=== PATIENT | male | born 1955 | race Caucasian/White ===

== ENCOUNTER 2017-11-02 14:07 | Emergency (ER) | payer MEDICAID ==
[~2017-11-02] VITALS: Ht 188 cm; Wt 135.0 kg
[2017-11-02 14:12] VITALS: BP 140/89; PULSE 85; RESP 18; TEMP 97.6; O2SAT 98
--- NOTE | 2017-11-02 14:36 | PD ---
HPI Chief Complaint: groin pain Time Seen by Provider: 14:20 Travel History International Travel<30 days: No Contact w/Intl Traveler<30days: No Traveled to known affect area: No History of Present Illness HPI 61-year-old male states that he went to a pain management doctor and was given a prescription for his morphine 60 mg but his insurance is not authorizing it so he is having issues feeling it. He states he came here because he wants to get pain medication. He states he's having pain in his groin like he's been having for multiple years after he was diagnosed with lymphoma. He denies any fever or other concurrent complaints. The pain is severe per patient. He states his oncologist is through [facility]. He states his last chemotherapy was 7 years ago. He states he recently had a PET scan showed improvement except for in his neck area. [facility] Past Medical History Narrative Medical Lymphoma Hx Anticoagulant Therapy: No Chemotherapy: Yes Diabetes: No Past Surgical History Surgical History: Unable to Obtain (patient elected to leave) Social History Tobacco Use: No (uto) Allergies-Medications (Allergen,Severity, Reaction): Coded Allergies: No Known Allergies (Unverified , 11/02/17) Review of Systems Except as stated in HPI: all other systems reviewed are Neg Physical Exam Narrative GENERAL: Well-nourished, well-developed patient. SKIN: Warm and dry. HEAD: Normocephalic EYES: No injection or drainage. ENT: No nasal drainage noted. NECK: Supple, trachea midline. CARDIOVASCULAR: Regular rate and rhythm RESPIRATORY: No increased effort NEUROLOGICAL: Awake and alert. Motor and sensory grossly within normal limits. Normal speech. Patient would not let me look at area with associate loan officer so physical exam was limited Data Data Last Documented VS Vital Signs Date Time Temp Pulse Resp B/P (MAP) Pulse Ox O2 Delivery O2 Flow Rate FiO2 11/02/17 14:12 97.6 85 18 140/89 (106) 98 Orders Orders Ed Discharge Order (11/02/17 14:34) MDM Medical Decision Making Medical Screen Exam Complete: Yes Emergency Medical Condition: Yes Medical Record Reviewed: Yes (past history confirmed) Differential Diagnosis Chronic abdominal pain, kidney stone, diverticulitis, UTI Narrative Course Lengthy discussion with patient with nurse at bedside. Offered lab work, urinalysis and possible CT imaging after I examined the area but he states he doesn't want any testing and he just wants a pain medication. I told him as an emergency room physician I need to look and he states in that case he just wants to leave. AMA: The risks of leaving against medical advice without further evaluation treatment were discussed with the patient. These risks include cardiac dysfunction, cardiac dysrhythmia, possible heart attack, possible stroke or . The patient indicated understanding of these risks and appeared to have the capacity to make this decision. Diagnosis Primary Impression: Chronic groin pain Qualified Codes: R10.30 - Lower abdominal pain, unspecified; G89.29 - Other chronic pain Disposition: 07 AGAINST MEDICAL ADVICE Condition: Stable Sarah Thorpe MD Nov 02, 2017 14:36
== END 2017-11-02 14:40 | disposition left against medical advice (07) ==
LOC: PHED 14:07
DX: R10.30 Lower abdominal pain, unspecified (principal); G89.29 Other chronic pain; Z85.72 Personal history of non-Hodgkin lymphomas
CPT/HCPCS: 99282

== ENCOUNTER 2017-12-29 12:57 | Inpatient (IN) | payer OTHER, MEDICAID ==
[~2017-12-29] VITALS: Ht 186.7 cm; Wt 135.0 kg
[2017-12-29] VITALS (7 sets, daily range): BP systolic 129–174; BP diastolic 71–108; PULSE 81–100; RESP 14–20; TEMP 98.2; O2SAT 97–100
[~2017-12-29 12:57] MED LIST: DEXAMETHASONE SOD PHOS 4 MG/ML VIAL IV ONE; GLYCOPYRROLATE 1 MG/5 ML SYRINGE IV PUSH ONE; LACTATED RINGER'S 1000 ML INJ 1,000 ML IV ONE; LIDOCAINE HCL 1% PF 5 ML SYRINGE OTHER ONE; NEOSTIGMINE 5 MG/5 ML SYRINGE IV PUSH ONE; ONDANSETRON HCL 4 MG/2 ML VIAL IV PUSH ONE; PHENYLEPH/NS 1000 MCG/10 ML SYR IV ONE; PROPOFOL 200 MG/20 ML AMP IV ONE; ROCURONIUM INJ 50 MG/5 ML SYRINGE IV PUSH ONE
[2017-12-29] MEDS ORDERED: SODIUM CHLOR 0.9% 1000 ML INJ 1,000 ML IV SCH (13:04)
[2017-12-29] MEDS ORDERED: PROPOFOL 1000 MG/100 ML INJ 100 ML ONE (13:11)
[2017-12-29] MEDS ORDERED: ceFAZolin 2 GM PREMIX 50 ML IV ONE (13:15)
[2017-12-29] MEDS ORDERED: HYDROmorphone HCL PF 2 MG/ML VIAL IV PUSH ONE ×2 (13:15→14:15)
[2017-12-29] MEDS ORDERED: HYDROmorphone HCL PF 1 MG/ML VIAL IV PUSH ONE (13:15)
[2017-12-29] MEDS ORDERED: GENTAMICIN INJ 80 MG in SODIUM CHLORIDE 0.9% INJ 100 ML IV ONE (13:15)
[2017-12-29] MEDS ORDERED: SODIUM CHLORIDE 0.9% FLUSH 10 ML FLUSH IVF PRN (13:15)
[2017-12-29] MEDS ORDERED: DIPHTH/TETANUS/ACEL PERTUSSIS (BOOSTER) 0.5 ML VIAL/PFS IM ONE (13:15)
[2017-12-29] MEDS ORDERED: MORP60TA61 PO (13:42)
[2017-12-29 13:53] LABS: AUTOMATED NEUTROPHIL # 5.9 TH/MM3 (1.8-7.7); BASOPHIL # 0.1 TH/MM3 (0-0.2); BASOPHIL % 0.6 % (0.0-2.0); EOSINOPHIL # 0.3 TH/MM3 (0-0.4); EOSINOPHIL % 3.5 % (0.0-4.0); HEMATOCRIT 44.2 % (39.0-51.0); HEMOGLOBIN 15.4 GM/DL (13.0-17.0); LYMPH % 26.9 % (9.0-44.0); LYMPHOCYTE # 2.5 TH/MM3 (1.0-4.8); MEAN CELL VOLUME 96.4 FL (80.0-100.0); MEAN CORPUSCULAR HEMOGLOBIN 33.6 PG (27.0-34.0); MEAN CORPUSCULAR HGB CONC 34.8 % (32.0-36.0); MONO % 7.2 % (0.0-8.0); MONOCYTE # 0.7 TH/MM3 (0-0.9); NEUT % 61.8 % (16.0-70.0); PLATELET COUNT 210 TH/MM3 (150-450); RED BLOOD COUNT 4.58 MIL/MM3 (4.50-5.90); RED CELL DISTRIBUTION WIDTH 12.9 % (11.6-17.2); WHITE BLOOD COUNT 9.5 TH/MM3 (4.0-11.0)
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
[2017-12-29 14:25] LABS: BICARBONATE 23.2 MEQ/L (21.0-32.0); CALCIUM 8.5 MG/DL (8.5-10.1); CREATININE 1.24 MG/DL (0.60-1.30)
--- NOTE | 2017-12-29 14:41 | RADRPT ---
EXAM DATE/TIME: 12/29/2017 13:39 [facility] COMPARISON: No previous studies available for comparison. INDICATIONS : Distal lower leg pain after LONG TERM. MEDICAL HISTORY : Non-hodgkins lymphoma. SURGICAL HISTORY : Port. ENCOUNTER: Initial ACUITY: 1 day PAIN SCORE: 10/10 LOCATION: Left distal lower leg. FINDINGS: The examination demonstrates a 100% displaced, foreshortened fracture involving both the distal tibia and fibula. Note is made of a second fracture in the fibula just above the lateral malleolus as well. There is extensive soft tissue injury. CONCLUSION: 1. Fractures of the distal tibia and fibula as above. Sla Richardson MD on December 29, 2017 at 14:38 Board Certified Radiologist. This report was verified electronically.
--- NOTE | 2017-12-29 14:41 | RADRPT ---
EXAM DATE/TIME: 12/29/2017 13:54 [facility] COMPARISON: No previous studies available for comparison. INDICATIONS : Evaluate for pneumonia, pneumothorax, or other communicable diseases. Pre op for left distal tib fib surgery. MEDICAL HISTORY : Non-hodgkins lymphoma. Current smoker. SURGICAL HISTORY : Port. ENCOUNTER: Initial ACUITY: 1 day PAIN SCORE: 10/10 LOCATION: Bilateral chest FINDINGS: A single view of the chest demonstrates the lungs to be symmetrically aerated without evidence of mas s, infiltrate or effusion. Right IJ Xyagbi-l-Aear with tip in the proximal SVC. The cardiomediastina l contours are unremarkable. Osseous structures are intact. CONCLUSION: 1. No acute cardiopulmonary disease. Sanford Hussein MD on December 29, 2017 at 14:38 Board Certified Radiologist. This report was verified electronically.
[2017-12-29] MEDS ORDERED: MORP1CAP82 PO (14:48)
[2017-12-29] MEDS ORDERED: FENT75DI T-DERMAL (14:48)
[2017-12-29] MEDS ORDERED: GABA800T PO (14:48)
[2017-12-29] MEDS ORDERED: FURO20TA PO (14:48)
[2017-12-29] MEDS ORDERED: TRAZ100T10 PO (14:48)
[2017-12-29] MEDS ORDERED: POTA10CA PO (14:48)
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
[2017-12-29 15:21] LABS: PROTHROMBIN TIME - PATIENT 10.6 SEC (9.8-11.6)
[2017-12-29] MEDS ORDERED: ACETAMINOPHEN 1000 MG/100 ML 100 ML IV ONE (15:21)
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
[2017-12-29] MEDS ORDERED: SODIUM CHLORIDE 0.9% FLUSH 10 ML FLUSH IV FLUSH PRN (15:45)
[2017-12-29] MEDS ORDERED: ACETAMINOPHEN 325 MG TAB PO PRN (15:45)
[2017-12-29] MEDS ORDERED: ENALAPRILAT 1.25 MG/ML VIAL IV PUSH PRN (15:45)
[2017-12-29] MEDS ORDERED: ONDANSETRON HCL 4 MG/2 ML VIAL IV PUSH PRN (15:45)
[2017-12-29] MEDS: MORPHINE SULFATE 4 MG/ML INJ IV PUSH PRN ×3 (15:55→20:32)
[2017-12-29] MEDS ORDERED: HYDROmorphone HCL PF 2 MG/ML VIAL IVS ONE (16:00)
[2017-12-29] MEDS ORDERED: DEXTROSE 50% IN WATER 50 ML VIAL(D50) IV PUSH PRN (16:00)
[2017-12-29] MEDS ORDERED: GLUCAGON 1 MG/ML VIAL OTHER PRN (16:00)
[2017-12-29] MEDS: SODIUM CHLOR 0.9% 1000 ML INJ 1,000 ML IV SCH (16:00)
[2017-12-29] MEDS: ACETAMINOPHEN/HYDROcodone 325 MG/5 MG TAB PO PRN (16:54)
[2017-12-29] MEDS: INSULIN ASPART SUPPLEMENTAL SCALE SQ SCH ×2 (17:00→21:00)
[2017-12-29] MEDS: GABAPENTIN 400 MG CAP PO SCH (18:00)
[2017-12-29] MEDS: MAGNESIUM HYDROXIDE SUSP 30 ML CUP PO SCH (21:00)
[2017-12-29] MEDS: traZODone HCL 100 MG TAB PO SCH (21:00)
[2017-12-29] MEDS: DOCUSATE SODIUM 100 MG CAP PO SCH (21:00)
[2017-12-29] MEDS: FAMOTIDINE 20 MG TAB PO SCH (21:00)
[2017-12-29] MEDS ORDERED: DOCU1CAP39 PO (21:16)
[2017-12-29] MEDS ORDERED: MAGN30S PO (21:16)
[2017-12-29] MEDS ORDERED: GENTAMICIN INJ 80 MG in SODIUM CHLORIDE 0.9% INJ 100 ML IV SCH (22:00)
[2017-12-29] MEDS ORDERED: GENTAMICIN SULFATE 80 MG/2 ML VIAL ONE (22:23)
[2017-12-29] MEDS ORDERED: ceFAZolin 2 GM PREMIX 50 ML ONE (22:23)
--- NOTE | 2017-12-30 00:02 | HHI.PR ---
cc: Charo Segovia MD Immediate Post Op Note Procedure Date: Dec 30, 2017 Pre Op Diagnosis: Open left tibia and fibula fracture Left lower extremity degloving injury Post Op Diagnosis: Same Surgeon: Charo Segovia Prom Burn Off Operator(s): None Procedure: Irrigation and debridement left tibia and fibula fractures Application of external fixator left lower extremity Application of wound VAC Complications: None Specimen(s) removed: None Estimated blood loss: 150 cc Anesthesia: General Drains: None IVF Patient to: PACU Patient Condition: Good Implant/Devices: SEE IMPLANT LOG (if applicable) Date/Time of Procedure: SEE SURGICAL CARE RECORD Charo Segovia MD Dec 30, 2017 00:02
--- NOTE | 2017-12-30 00:04 | RADRPT ---
EXAM DATE/TIME: 12/29/2017 23:38 [facility] COMPARISON: No previous studies available for comparison. INDICATIONS : Left tibia/fibula fracture. X-fix of left ankle. MEDICAL HISTORY : None. SURGICAL HISTORY : None. ENCOUNTER: Initial ACUITY: 1 day PAIN SCORE: Non-responsive. LOCATION: Left ankle. FINDINGS: 2 magnified C-arm spot views are centered over the ankle joint and are labeled left. Fractures are se en involving the distal tibial metaphysis, distal fibular diaphysis, and distal fibular metadiaphysis . Mild angulation. CONCLUSION: Limited images as detailed above. Ronny Rodriguez Jr., MD on December 30, 2017 at 0:02 Board Certified Radiologist. This report was verified electronically.
[2017-12-30] MEDS ORDERED: Post-op Orders (for Pharmacy) XX ONE (00:15)
[2017-12-30] MEDS ORDERED: SODIUM CHLORIDE 0.9% FLUSH 10 ML FLUSH IV FLUSH PRN (00:15)
[2017-12-30] MEDS ORDERED: DO NOT ADM ANY ANTICOAGULANT DRUGS PRN (00:30)
[2017-12-30] MEDS: SODIUM CHLOR 0.9% 1000 ML INJ 1,000 ML IV SCH ×3 (01:57→21:52)
[2017-12-30 03:30] VITALS: BP 123/67; PULSE 87; RESP 18; TEMP 97.1; O2SAT 97
[2017-12-30 04:02] LABS: AUTOMATED NEUTROPHIL # 9.1 TH/MM3 (1.8-7.7); BASOPHIL % 0.3 % (0.0-2.0); EOSINOPHIL % 0.1 % (0.0-4.0); HEMATOCRIT 36.2 % (39.0-51.0); HEMOGLOBIN 12.9 GM/DL (13.0-17.0); LYMPH % 7.6 % (9.0-44.0); LYMPHOCYTE # 0.8 TH/MM3 (1.0-4.8); MEAN CELL VOLUME 94.8 FL (80.0-100.0); MEAN CORPUSCULAR HEMOGLOBIN 33.8 PG (27.0-34.0); MEAN CORPUSCULAR HGB CONC 35.7 % (32.0-36.0); MEAN PLATELET VOLUME 7.7 FL (7.0-11.0); MONO % 4.1 % (0.0-8.0); MONOCYTE # 0.4 TH/MM3 (0-0.9); NEUT % 87.9 % (16.0-70.0); PLATELET COUNT 175 TH/MM3 (150-450); RED BLOOD COUNT 3.82 MIL/MM3 (4.50-5.90); WHITE BLOOD COUNT 10.4 TH/MM3 (4.0-11.0)
[2017-12-30 04:31] LABS: BICARBONATE 28.3 MEQ/L (21.0-32.0); CALCIUM 8.2 MG/DL (8.5-10.1); CREATININE 1.3 MG/DL (0.60-1.30)
[2017-12-30] MEDS: GENTAMICIN INJ 80 MG in SODIUM CHLORIDE 0.9% INJ 100 ML IV SCH ×3 (05:48→21:50)
[2017-12-30 07:26] VITALS: BP 129/68; PULSE 77; RESP 19; TEMP 98.1; O2SAT 98
[2017-12-30] MEDS: INSULIN ASPART SUPPLEMENTAL SCALE SQ SCH ×4 (08:00→21:51)
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
[2017-12-30] MEDS: FAMOTIDINE 20 MG TAB PO SCH ×2 (08:12→21:50)
[2017-12-30] MEDS: DOCUSATE SODIUM 100 MG CAP PO SCH ×2 (08:12→21:50)
[2017-12-30] MEDS: GABAPENTIN 400 MG CAP PO SCH ×3 (08:12→18:18)
[2017-12-30] MEDS: MAGNESIUM HYDROXIDE SUSP 30 ML CUP PO SCH ×2 (08:12→21:50)
[2017-12-30] MEDS: SODIUM CHLORIDE 0.9% FLUSH 10 ML FLUSH IV FLUSH SCH ×2 (08:15→21:51)
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
[2017-12-30 11:42] VITALS: BP 124/71; PULSE 80; RESP 19; TEMP 96; O2SAT 99
[2017-12-30] MEDS: MORPHINE SULFATE 60 MG CONTROLLED RELEASE TAB PO SCH ×2 (12:46→21:50)
[2017-12-30] MEDS: ENOXAPARIN SODIUM 40 MG/0.4 ML SYRINGE SQ SCH (12:47)
--- NOTE | 2017-12-30 13:55 | EKG ---
Date Performed: 12/29/2017 Time Performed: 13:34:36 PTAGE: 62 years EKG: Sinus rhythm POSSIBLE INFERIOR MYOCARDIAL INFARCTION BORDERLINE ECG NO PREVIOUS TRACING DOCTOR: Lynne Haley Interpretating Date/Time 12/30/2017 13:51:31
[2017-12-30] MEDS: ACETAMINOPHEN/HYDROcodone 325 MG/5 MG TAB PO PRN ×2 (14:11→18:18)
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
[2017-12-30 15:41] VITALS: BP 127/60; PULSE 80; RESP 19; TEMP 97.8; O2SAT 97
[2017-12-30 19:35] VITALS: BP 119/63; PULSE 87; RESP 18; TEMP 97.9; O2SAT 98
[2017-12-30] MEDS: traZODone HCL 100 MG TAB PO SCH (21:50)
[2017-12-31] VITALS (8 sets, daily range): BP systolic 96–135; BP diastolic 51–72; PULSE 71–93; RESP 17–18; TEMP 95.9–98.7; O2SAT 94–100
[2017-12-31] MEDS: ACETAMINOPHEN/HYDROcodone 325 MG/5 MG TAB PO PRN ×3 (04:23→21:34)
[2017-12-31] MEDS: GENTAMICIN INJ 80 MG in SODIUM CHLORIDE 0.9% INJ 100 ML IV SCH ×2 (05:03→22:16)
[2017-12-31] MEDS ORDERED: LACTATED RINGER'S 1000 ML IV PRN (06:45)
[2017-12-31] MEDS ORDERED: CHLORHEXIDINE GLUCONATE 2 % 1 PACK (2 CLOTHS) TOPICAL PRN (06:45)
[2017-12-31] MEDS ORDERED: METOPROLOL TARTRATE 25 MG TAB PO PRN (06:45)
[2017-12-31] MEDS ORDERED: POVIDONE IODINE 5% (ANTISEPSIS KIT) 4 APPLICATIONS EACH NARE PRN (06:45)
[2017-12-31] MEDS ORDERED: SODIUM CHLORID 0.9% 500 ML IV PRN (06:45)
[2017-12-31] MEDS: INSULIN ASPART SUPPLEMENTAL SCALE SQ SCH ×4 (07:45→21:38)
[2017-12-31] MEDS: GABAPENTIN 400 MG CAP PO SCH ×3 (09:00→19:26)
[2017-12-31] MEDS: DOCUSATE SODIUM 100 MG CAP PO SCH ×2 (09:00→21:33)
[2017-12-31] MEDS: MORPHINE SULFATE 60 MG CONTROLLED RELEASE TAB PO SCH ×2 (09:00→21:33)
[2017-12-31] MEDS: MAGNESIUM HYDROXIDE SUSP 30 ML CUP PO SCH ×2 (09:00→21:33)
[2017-12-31] MEDS: FAMOTIDINE 20 MG TAB PO SCH ×2 (09:00→21:33)
[2017-12-31] MEDS ORDERED: ACETAMINOPHEN 1000 MG/100 ML 100 ML IV ONE (09:01)
[2017-12-31] MEDS ORDERED: FAMOTIDINE 20 MG/2 ML VIAL ONE (09:02)
[2017-12-31] MEDS ORDERED: MIDAZOLAM HCL 2 MG/2 ML VIAL ONE (09:02)
[2017-12-31] MEDS ORDERED: GENTAMICIN SULFATE 80 MG/2 ML VIAL ONE (09:25)
[2017-12-31] MEDS ORDERED: SUGAMMADEX SODIUM 200 MG/2 ML VIAL IV PUSH ONE (09:56)
--- NOTE | 2017-12-31 10:44 | PD.OP ---
cc: Kirk Anthony MD Operative Report Date of Surgery: Dec 31, 2017 Preoperative Diagnosis: Type III open left tibia shaft fracture Postoperative Diagnosis: Procedure: Irrigation and debridement of open left tibia fracture, revision of external fixation, application of wound VAC dressing, partial wound closure Anesthesia: Gen. Surgeon: Kirk Anthony Aircraft Maintenance Supervisor(s): MANASA Thornton PA-C The surgical procedure was assisted by my physician blacksmith assistant. My P.A. presence was necessary throughout this case for the manipulation and positioning of the surgical extremity. My P.A. was assisting me throughout the duration of this procedure. The skill set of a physician blacksmith assistant was medically necessary to complete this procedure. During the surgical case the mobile service rv technician was working at the back table and the physician blacksmith assistant was directly assisting me. Operation and Findings: This patient was seen and evaluated preoperatively. He presented to the emergency room with a type III open left tibia fracture. He was initially taken to operating room for irrigation and debridement, closed reduction, and external fixation by the orthopedic surgeon radiation officer. I have been asked to take over definitive care of patient. I had a lengthy discussion with patient preoperatively regarding treatment options. I explained to him that if he develops skin necrosis he will likely need attempted free tissue transfer by a plastic surgeon. If this is unsuccessful, he would likely end up with a below- knee amputation. He wishes to proceed with limb salvage treatment and understands that he may need multiple surgeries in order to maintain his foot. Informed consent was obtained for surgery after detailed discussion of risk and benefits. He is brought to operating room. His given IV sedation and general anesthesia. Timeout procedure was performed. He is on scheduled IV antibiotics. Left leg was prepped with alcohol followed by Hibiclens and draped usual sterile fashion. Procedure began with removal of a portion of the external fixator. The pins were left in place. The clamps and bars were removed. At this point attention was turned to irrigation and debridement of the fracture. Overall the wound appeared to be clean. Curettes were used to debride the tibia. An excisional debridement was performed with curettes and rongeurs. After thorough debridement wound was thoroughly irrigated with pulsatile lavage. Overall the wound appeared to be very clean at this time. Next attention was turned to revision of the external fixator. The tibia was reduced. The tibia fracture reduced into excellent alignment. Clamps and bars were now placed back onto the pins. With the fracture held in a reduced position the external fixator was tightened to hold reduction. Fluoroscopy confirmed appropriate alignment of fractures. At this point attention was turned to wound closure. Approximately 4 cm of the wound was closable. The area of skin directly over the tibia fracture was closed with 3-0 nylon. Vertical mattress and retention sutures were utilized. There was minimal tension after closure of this portion of the wound. The remainder of the wound was not closable. At this point attention was turned to VAC dressing. A VAC dressing was cut to fit the open wound. VAC dressing was sealed appropriately. Sterile dressings were applied. Patient was awakened and transferred to recovery room in stable condition. Kirk Anthony MD Dec 31, 2017 10:44
[2017-12-31] MEDS ORDERED: Post-op Orders (for Pharmacy) XX ONE (10:45)
[2017-12-31] MEDS ORDERED: diphenhydrAMINE HCL 25 MG CAP PO PRN (10:45)
[2017-12-31] MEDS ORDERED: DO NOT ADM ANY ANTICOAGULANT DRUGS PRN (11:05)
[2017-12-31] MEDS: LACTATED RINGER'S 1000 ML INJ 1,000 ML IV SCH ×2 (11:09→23:07)
[2017-12-31] MEDS ORDERED: *MEPERIDINE 25 MG INJ VIAL PERIprocedural Use ONLY ONE (11:24)
--- NOTE | 2017-12-31 11:38 | PD.ORT.PN ---
Subjective Subjective Remarks POD 0 s/p I&D with vac change and revision of exfix left distal tibia and fibula fxs stable in pacu Objective Vitals Vital Signs Date Time Temp Pulse Resp B/P (MAP) Pulse Ox O2 Delivery O2 Flow Rate FiO2 12/31/17 11:07 98.5 79 20 124/83 (97) 100 Nasal Cannula 2 12/31/17 07:51 97.2 71 17 110/57 (74) 96 12/31/17 04:05 96.7 81 17 135/72 (93) 100 12/31/17 00:05 97.4 76 18 124/56 (78) 100 12/30/17 19:35 97.9 87 18 119/63 (81) 98 12/30/17 15:41 97.8 80 19 127/60 (82) 97 12/30/17 15:11 18 12/30/17 13:46 18 12/30/17 11:42 96.0 80 19 124/71 (88) 99 I/O 12/30/17 12/30/17 12/30/17 12/31/17 12/31/17 12/31/17 07:00 15:00 23:00 07:00 15:00 23:00 Intake Total 1142 ml 850 ml 202 ml 1162 ml 500 ml Output Total 160 ml 1200 ml 1300 ml 305 ml Balance 982 ml -350 ml 202 ml -138 ml 195 ml Intake Oral 240 ml 850 ml 960 ml IV Total 202 ml 202 ml 202 ml Other 700 ml 500 ml Output Urine Total 0 ml 1150 ml 1200 ml Drainage Total 100 ml 50 ml 100 ml 275 ml Estimated Blood Loss 60 ml 30 ml # Bowel Movements 0 0 Result Diagram: 12/30/17 0350 12/30/17 0350 Objective Remarks LLE: +exfix. dressings clean and dry. +vac. good seal. Assessment & Plan Assessment and Plan 1) Open Left Distal tibia and fibula fxs s/p I&D with vac change and exfix revision - POD 0 -NWB -elevate -maintain vac at all times -vac settings: 100mmHg, low, 3:1 -Pin Care BID -will plan for repeat I&D on wednesday Gordon Rolle/First Ayesha HERNANDEZ Dec 31, 2017 11:38
[2017-12-31] MEDS ORDERED: ROCURONIUM INJ 50 MG/5 ML SYRINGE IV PUSH ONE (12:00)
[2017-12-31] MEDS ORDERED: ONDANSETRON HCL 4 MG/2 ML VIAL IV ONE (12:00)
[2017-12-31] MEDS ORDERED: LIDOCAINE HCL 1% PF 5 ML SYRINGE OTHER ONE (12:00)
[2017-12-31] MEDS: ENOXAPARIN SODIUM 40 MG/0.4 ML SYRINGE SQ SCH (12:00)
[2017-12-31] MEDS ORDERED: PROPOFOL 200 MG/20 ML AMP IV ONE (12:00)
[2017-12-31] MEDS: MORPHINE SULFATE 4 MG/ML INJ IV PUSH PRN (12:38)
[2017-12-31] MEDS: KETOROLAC TROMETHAMINE 30 MG/ML (IVP) VIAL IVP SCH ×2 (13:25→22:17)
[2017-12-31] MEDS: ceFAZolin 2 GM PREMIX 50 ML IV SCH ×2 (13:29→21:33)
[2017-12-31] MEDS ORDERED: GENTAMICIN 80 MG PREMIX 100 ML IV SCH (14:00)
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
[2017-12-31] MEDS ORDERED: HYDROmorphone HCL PF 2 MG/ML VIAL IV PUSH PRN (15:00)
--- NOTE | 2017-12-31 15:53 | RADRPT ---
EXAM DATE/TIME: 12/31/2017 10:25 [facility] COMPARISON: ANKLE LEFT LIMITED (AP&LAT), December 29, 2017, 23:38. INDICATIONS : Left tibia/fibula ex-fix. MEDICAL HISTORY : None. SURGICAL HISTORY : Left tibia ex-fix. ENCOUNTER: Initial ACUITY: 1 day PAIN SCORE: Non-responsive. LOCATION: Left tibia/fibula FINDINGS: 2 fluoroscopic spot images of the left ankle demonstrate distal tibial and multiport fibular fracture s in stable alignment to prior exam. CONCLUSION: 1. Distal tibial and fibular fractures, as above. Sanford Hussein MD on December 31, 2017 at 15:49 Board Certified Radiologist. This report was verified electronically.
[2017-12-31] MEDS: traZODone HCL 100 MG TAB PO SCH (21:33)
[2017-12-31] MEDS: SODIUM CHLORIDE 0.9% FLUSH 10 ML FLUSH IV FLUSH SCH (21:38)
[2018-01-01 04:05] VITALS: BP 101/56; PULSE 84; RESP 17; TEMP 99; O2SAT 93
[2018-01-01] MEDS: GENTAMICIN INJ 80 MG in SODIUM CHLORIDE 0.9% INJ 100 ML IV SCH ×3 (05:10→21:38)
[2018-01-01] MEDS: KETOROLAC TROMETHAMINE 30 MG/ML (IVP) VIAL IVP SCH ×2 (05:14→15:11)
[2018-01-01] MEDS: ACETAMINOPHEN/HYDROcodone 325 MG/5 MG TAB PO PRN ×4 (05:16→21:40)
[2018-01-01 07:35] LABS: HEMATOCRIT 23.3 % (39.0-51.0); HEMOGLOBIN 8.3 GM/DL (13.0-17.0)
[2018-01-01 08:00] VITALS: BP 91/54; PULSE 83; RESP 17; TEMP 99; O2SAT 97
[2018-01-01] MEDS: INSULIN ASPART SUPPLEMENTAL SCALE SQ SCH ×4 (08:00→20:05)
[2018-01-01] MEDS: DOCUSATE SODIUM 100 MG CAP PO SCH ×2 (08:36→20:04)
[2018-01-01] MEDS: GABAPENTIN 400 MG CAP PO SCH ×3 (08:36→18:00)
[2018-01-01] MEDS: MAGNESIUM HYDROXIDE SUSP 30 ML CUP PO SCH ×2 (08:37→20:03)
[2018-01-01] MEDS: SODIUM CHLORIDE 0.9% FLUSH 10 ML FLUSH IV FLUSH SCH ×2 (08:38→20:06)
[2018-01-01] MEDS: MORPHINE SULFATE 60 MG CONTROLLED RELEASE TAB PO SCH ×2 (08:38→20:04)
[2018-01-01] MEDS: FAMOTIDINE 20 MG TAB PO SCH ×2 (08:38→20:04)
--- NOTE | 2018-01-01 09:01 | PD.ORT.PN ---
Subjective Subjective Remarks pt complains of post op left leg pain no other subjective complaints Objective Vitals Vital Signs Date Time Temp Pulse Resp B/P (MAP) Pulse Ox O2 Delivery O2 Flow Rate FiO2 01/01/18 04:05 99.0 84 17 101/56 (71) 93 12/31/17 23:50 98.5 84 17 101/51 (68) 95 12/31/17 20:10 98.7 80 18 99/51 (67) 98 12/31/17 19:54 94 12/31/17 16:00 97.3 93 17 96/55 (69) 94 12/31/17 12:00 95.9 74 17 123/57 (79) 100 12/31/17 12:00 98.5 70 20 122/56 (78) 97 Nasal Cannula 2 12/31/17 11:45 81 20 130/68 (88) 96 Nasal Cannula 2 12/31/17 11:30 74 20 123/56 (78) 93 Nasal Cannula 2 12/31/17 11:15 73 20 118/58 (78) 96 Nasal Cannula 2 12/31/17 11:07 98.5 79 20 124/83 (97) 100 Nasal Cannula 2 I/O 12/31/17 12/31/17 12/31/17 01/01/18 01/01/18 01/01/18 07:00 15:00 23:00 07:00 15:00 23:00 Intake Total 1162 ml 880 ml 152 ml 960 ml Output Total 1300 ml 305 ml 800 ml Balance -138 ml 575 ml 152 ml 160 ml Intake Oral 960 ml 380 ml 960 ml IV Total 202 ml 152 ml Other 500 ml Output Urine Total 1200 ml 800 ml Drainage Total 100 ml 275 ml 0 ml Estimated Blood Loss 30 ml # Voids 2 # Bowel Movements 0 0 0 Result Diagram: 01/01/18 0636 12/30/17 0350 Objective Remarks also seen and evaluated with Dr. James Cabezas LLE: +exfix. dressings clean and dry. +vac. good seal. Assessment & Plan Assessment and Plan 1) Open Left Distal tibia and fibula fxs s/p I&D with vac change and exfix revision - POD #1 -NWB -elevate -maintain vac at all times -vac settings: 100mmHg, low, 3:1 -Pin Care BID -will plan for repeat I&D on wednesday -nox DVT prop Tracy Mario Jan 01, 2018 09:01
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
[2018-01-01] MEDS: LACTATED RINGER'S 1000 ML INJ 1,000 ML IV SCH (11:37)
[2018-01-01 12:00] VITALS: BP 92/51; PULSE 83; RESP 17; TEMP 97.6; O2SAT 98
[2018-01-01] MEDS: ENOXAPARIN SODIUM 40 MG/0.4 ML SYRINGE SQ SCH (12:17)
[2018-01-01 16:00] VITALS: BP 96/55; PULSE 90; RESP 17; TEMP 98; O2SAT 94
[2018-01-01 20:00] VITALS: BP 99/52; PULSE 75; RESP 17; TEMP 97; O2SAT 97
[2018-01-01] MEDS: traZODone HCL 100 MG TAB PO SCH (20:04)
[2018-01-02] VITALS (8 sets, daily range): BP systolic 102–127; BP diastolic 54–70; PULSE 84–95; RESP 18–20; TEMP 97.6–99; O2SAT 90–98
[2018-01-02] MEDS: LACTATED RINGER'S 1000 ML INJ 1,000 ML IV SCH (00:07)
[2018-01-02] MEDS: ACETAMINOPHEN/HYDROcodone 325 MG/5 MG TAB PO PRN ×4 (04:51→18:46)
[2018-01-02] MEDS: GENTAMICIN INJ 80 MG in SODIUM CHLORIDE 0.9% INJ 100 ML IV SCH ×3 (06:34→22:00)
[2018-01-02] MEDS: INSULIN ASPART SUPPLEMENTAL SCALE SQ SCH ×4 (08:00→21:00)
--- NOTE | 2018-01-02 08:26 | PD.ORT.PN ---
Subjective Subjective Remarks pt doing better today, does have left lower extremity pain states his left knee became very swollen yesterday no other subjective complaints Objective Vitals Vital Signs Date Time Temp Pulse Resp B/P (MAP) Pulse Ox O2 Delivery O2 Flow Rate FiO2 01/02/18 05:24 18 01/02/18 04:05 98.2 85 18 126/61 (82) 97 01/02/18 00:05 98.0 95 18 127/64 (85) 98 01/01/18 22:21 Room Air 01/01/18 21:02 16 01/01/18 20:00 97.0 75 17 99/52 (68) 97 01/01/18 16:00 98.0 90 17 96/55 (69) 94 01/01/18 12:00 97.6 83 17 92/51 (65) 98 I/O 01/01/18 01/01/18 01/01/18 01/02/18 01/02/18 01/02/18 07:00 15:00 23:00 07:00 15:00 23:00 Intake Total 960 ml 480 ml 202 ml 460 ml 102 ml Output Total 800 ml 100 ml 10 ml 1180 ml Balance 160 ml 380 ml 192 ml -720 ml 102 ml Intake Oral 960 ml 480 ml 360 ml IV Total 202 ml 100 ml 102 ml Output Urine Total 800 ml 1150 ml Drainage Total 0 ml 100 ml 10 ml 30 ml # Voids 3 # Bowel Movements 0 0 0 Result Diagram: 01/01/18 0636 12/30/17 0350 Objective Remarks LLE: +exfix. dressings clean and dry. +vac. good seal. sensation intact ice in place Assessment & Plan Assessment and Plan 1) Open Left Distal tibia and fibula fxs s/p I&D with vac change and exfix revision - POD #2 -NWB -elevate -maintain vac at all times -vac settings: 100mmHg, low, 3:1 -Pin Care BID -will plan for repeat I&D on wednesday, Dr. Carmona team to evaluate tomorrow -Lovenox DVT prop Tracy Mario Jan 02, 2018 08:26
[2018-01-02] MEDS: SODIUM CHLORIDE 0.9% FLUSH 10 ML FLUSH IV FLUSH SCH ×2 (09:00→20:59)
[2018-01-02] MEDS: MAGNESIUM HYDROXIDE SUSP 30 ML CUP PO SCH ×2 (09:00→21:00)
[2018-01-02] MEDS: MORPHINE SULFATE 60 MG CONTROLLED RELEASE TAB PO SCH ×2 (09:05→21:00)
[2018-01-02] MEDS: FAMOTIDINE 20 MG TAB PO SCH ×2 (09:05→21:01)
[2018-01-02] MEDS: DOCUSATE SODIUM 100 MG CAP PO SCH ×2 (09:05→21:00)
[2018-01-02] MEDS: GABAPENTIN 400 MG CAP PO SCH ×3 (09:05→18:46)
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
[2018-01-02] MEDS ORDERED: FUROSEMIDE 40 MG/4 ML VIAL IV PUSH ONE (10:15)
[2018-01-02] MEDS: ENOXAPARIN SODIUM 40 MG/0.4 ML SYRINGE SQ SCH (12:42)
[2018-01-02] MEDS: traZODone HCL 100 MG TAB PO SCH (21:01)
[2018-01-03] VITALS (7 sets, daily range): BP systolic 95–120; BP diastolic 48–56; PULSE 72–87; RESP 17–18; TEMP 96.6–98.2; O2SAT 91–97
[2018-01-03] MEDS: ACETAMINOPHEN/HYDROcodone 325 MG/5 MG TAB PO PRN ×3 (02:44→13:52)
[2018-01-03] MEDS: GENTAMICIN INJ 80 MG in SODIUM CHLORIDE 0.9% INJ 100 ML IV SCH (06:00)
--- NOTE | 2018-01-03 06:42 | PD.ORT.PN ---
Subjective Subjective Remarks Resting comfortably. Wound VAC machine indicates a leak Objective Vitals Vital Signs Date Time Temp Pulse Resp B/P (MAP) Pulse Ox O2 Delivery O2 Flow Rate FiO2 01/03/18 00:05 98.2 72 18 110/55 (73) 94 01/02/18 22:37 18 01/02/18 19:50 97.6 85 18 105/57 (73) 97 01/02/18 19:46 18 01/02/18 17:29 93 21 01/02/18 16:00 99.0 85 20 113/54 (73) 91 01/02/18 12:00 98.2 93 19 116/70 (85) 93 01/02/18 09:14 98 01/02/18 08:00 98.2 84 18 102/55 (71) 90 I/O 01/02/18 01/02/18 01/02/18 01/03/18 01/03/18 01/03/18 07:00 15:00 23:00 07:00 15:00 23:00 Intake Total 460 ml 102 ml 480 ml 360 ml Output Total 1180 ml 0 ml 1120 ml 500 ml Balance -720 ml 102 ml -640 ml -140 ml Intake Oral 360 ml 480 ml 360 ml IV Total 100 ml 102 ml Output Urine Total 1150 ml 1100 ml 500 ml Drainage Total 30 ml 0 ml 20 ml # Voids 1 # Bowel Movements 0 1 0 Result Diagram: 01/01/18 0636 12/30/17 0350 Objective Remarks LLE: +exfix. dressings clean and dry. +vac. Wound VAC is functioning but is showing a leak in the seal Intact sensation with movement of all toes and ankle Assessment & Plan Assessment and Plan 1) Open Left Distal tibia and fibula fxs s/p I&D with vac change and exfix revision - POD #3 -NWB -elevate -maintain vac at all times - will return this morning to re-seal dressing -vac settings: 100mmHg, low, 3:1 -Pin Care BID -Nothing by mouth after midnight -Hold Lovenox DVT prop Surgery tomorrow morning for irrigation debridement and possible external fixation revision Mychal Francisco Jr. Jan 03, 2018 06:42
[2018-01-03] MEDS: INSULIN ASPART SUPPLEMENTAL SCALE SQ SCH ×4 (08:00→21:00)
--- NOTE | 2018-01-03 08:12 | PD.ORT.PN ---
Subjective Subjective Remarks POD 3 s/p I&D with vac change and revision of exfix left distal tibia and fibula fxs vac had seal leak over weekend. Objective Vitals Vital Signs Date Time Temp Pulse Resp B/P (MAP) Pulse Ox O2 Delivery O2 Flow Rate FiO2 01/03/18 07:20 96.6 78 18 100/56 (71) 91 01/03/18 00:05 98.2 72 18 110/55 (73) 94 01/02/18 22:37 18 01/02/18 19:50 97.6 85 18 105/57 (73) 97 01/02/18 19:46 18 01/02/18 17:29 93 21 01/02/18 16:00 99.0 85 20 113/54 (73) 91 01/02/18 12:00 98.2 93 19 116/70 (85) 93 01/02/18 09:14 98 I/O 01/02/18 01/02/18 01/02/18 01/03/18 01/03/18 01/03/18 07:00 15:00 23:00 07:00 15:00 23:00 Intake Total 460 ml 102 ml 480 ml 360 ml 300 ml Output Total 1180 ml 0 ml 1120 ml 500 ml Balance -720 ml 102 ml -640 ml -140 ml 300 ml Intake Oral 360 ml 480 ml 360 ml IV Total 100 ml 102 ml 300 ml Output Urine Total 1150 ml 1100 ml 500 ml Drainage Total 30 ml 0 ml 20 ml # Voids 1 # Bowel Movements 0 1 0 Result Diagram: 01/01/18 0636 12/30/17 0350 Objective Remarks LLE: +exfix. dressings clean and dry. +vac. Wound VAC is functioning but is showing a leak in the seal. significant swelling and blistering of foot. vac setting is on continuous and on abthera setting, not the normal vac setting. Intact sensation with movement of all toes and ankle Assessment & Plan Assessment and Plan 1) Open Left Distal tibia and fibula fxs s/p I&D with vac change and exfix revision - POD #3 -NWB -elevate -maintain vac at all times - will return this morning to re-seal dressing -vac settings: 100mmHg, low, 3:1 -Pin Care BID -Nothing by mouth after midnight -Hold Lovenox DVT prop Surgery tomorrow morning for irrigation debridement and possible external fixation revision Gordon Rolle/Endoscope Technician MARY Jan 03, 2018 08:12
[2018-01-03] MEDS: DOCUSATE SODIUM 100 MG CAP PO SCH ×2 (08:57→21:21)
[2018-01-03] MEDS: FAMOTIDINE 20 MG TAB PO SCH ×2 (08:57→21:21)
[2018-01-03] MEDS: GABAPENTIN 400 MG CAP PO SCH ×3 (08:57→17:05)
[2018-01-03] MEDS: MORPHINE SULFATE 60 MG CONTROLLED RELEASE TAB PO SCH ×2 (08:58→21:21)
[2018-01-03] MEDS: SODIUM CHLORIDE 0.9% FLUSH 10 ML FLUSH IV FLUSH SCH ×2 (08:58→21:00)
[2018-01-03] MEDS: MAGNESIUM HYDROXIDE SUSP 30 ML CUP PO SCH ×2 (08:58→21:00)
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
[2018-01-03] MEDS ORDERED: FUROSEMIDE 40 MG/4 ML VIAL IV PUSH ONE (17:00)
[2018-01-03] MEDS: NICOTINE 21 MG/24 HR PATCH T-DERMAL SCH (17:00)
[2018-01-03] MEDS: traZODone HCL 100 MG TAB PO SCH (21:21)
[2018-01-03] MEDS ORDERED: METOPROLOL TARTRATE 25 MG TAB PO PRN (21:45)
[2018-01-03] MEDS ORDERED: LACTATED RINGER'S 1000 ML IV PRN (21:45)
[2018-01-03] MEDS ORDERED: CHLORHEXIDINE GLUCONATE 2 % 1 PACK (2 CLOTHS) TOPICAL PRN (21:45)
[2018-01-03] MEDS ORDERED: POVIDONE IODINE 5% (ANTISEPSIS KIT) 4 APPLICATIONS EACH NARE PRN (21:45)
[2018-01-03] MEDS ORDERED: SODIUM CHLORID 0.9% 500 ML IV PRN (21:45)
[2018-01-04] MEDS: SODIUM CHLOR 0.9% 1000 ML INJ 1,000 ML IV SCH (00:33)
[2018-01-04] MEDS: ACETAMINOPHEN/HYDROcodone 325 MG/5 MG TAB PO PRN ×4 (00:33→23:33)
[2018-01-04 00:45] VITALS: BP 124/58; PULSE 93; RESP 18; TEMP 99.2; O2SAT 99
[2018-01-04 03:15] VITALS: BP 109/51; PULSE 81; RESP 18; TEMP 99; O2SAT 96
--- NOTE | 2018-01-04 06:33 | PD.ORT.PN ---
Subjective Subjective Remarks s/p I&D with vac change and revision of exfix left distal tibia and fibula fxs no changes. doing well Objective Vitals Vital Signs Date Time Temp Pulse Resp B/P (MAP) Pulse Ox O2 Delivery O2 Flow Rate FiO2 01/04/18 03:15 99.0 81 18 109/51 (70) 96 01/04/18 01:18 18 01/04/18 00:45 99.2 93 18 124/58 (80) 99 01/03/18 22:54 Room Air 01/03/18 22:24 18 01/03/18 21:14 94 01/03/18 19:30 98.1 76 17 95/48 (64) 97 01/03/18 16:00 96.6 87 18 120/55 (76) 95 01/03/18 11:45 97.1 78 18 102/50 (67) 92 01/03/18 08:06 95 21 01/03/18 07:20 96.6 78 18 100/56 (71) 91 I/O 01/03/18 01/03/18 01/03/18 01/04/18 01/04/18 01/04/18 06:59 14:59 22:59 06:59 14:59 22:59 Intake Total 360 ml 1260 ml 886 ml Output Total 500 ml 1150 ml 1850 ml Balance -140 ml 110 ml -964 ml Intake Oral 360 ml 960 ml IV Total 300 ml 886 ml Output Urine Total 500 ml 1150 ml 1750 ml Drainage Total 100 ml # Bowel Movements 0 Result Diagram: 01/01/18 0636 Objective Remarks LLE: +exfix. dressings clean and dry. +vac. Wound VAC is functioning but is showing a leak in the seal. significant swelling and blistering of foot. vac setting is on continuous and on abthera setting, not the normal vac setting. Intact sensation with movement of all toes and ankle Assessment & Plan Assessment and Plan 1) Open Left Distal tibia and fibula fxs s/p I&D with vac change and exfix revision -NWB -elevate -maintain vac at all times - will return this morning to re-seal dressing -vac settings: 100mmHg, low, 3:1 -Pin Care BID -surgery today for I&D and vac change Gordon Rolle PA/Edge Bonder PA Jan 04, 2018 06:33
[2018-01-04 07:40] VITALS: BP 110/50; PULSE 85; RESP 18; TEMP 98.4; O2SAT 95
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
[2018-01-04] MEDS ORDERED: LACTULOSE SYRUP 20 GM/30 ML CUP PO PRN (08:00)
[2018-01-04] MEDS ORDERED: SENNOSIDES 8.6 MG TAB PO PRN (08:00)
[2018-01-04] MEDS ORDERED: BISACODYL 10 MG SUPP RECTAL PRN (08:00)
[2018-01-04] MEDS ORDERED: MAGNESIUM HYDROXIDE SUSP 30 ML CUP PO PRN (08:00)
[2018-01-04] MEDS: INSULIN ASPART SUPPLEMENTAL SCALE SQ SCH ×4 (08:00→21:00)
[2018-01-04] MEDS: SODIUM CHLORIDE 0.9% FLUSH 10 ML FLUSH IV FLUSH SCH ×2 (09:00→21:00)
[2018-01-04] MEDS: FUROSEMIDE 20 MG TAB PO SCH ×2 (09:00→18:12)
[2018-01-04] MEDS: GABAPENTIN 400 MG CAP PO SCH ×3 (09:00→18:11)
[2018-01-04] MEDS: NICOTINE 21 MG/24 HR PATCH T-DERMAL SCH (09:00)
[2018-01-04] MEDS: MAGNESIUM HYDROXIDE SUSP 30 ML CUP PO SCH ×2 (09:00→21:37)
[2018-01-04] MEDS: DOCUSATE SODIUM 50 MG/SENNA 8.6 MG TAB PO SCH ×2 (09:00→21:38)
[2018-01-04] MEDS: MORPHINE SULFATE 60 MG CONTROLLED RELEASE TAB PO SCH ×2 (09:00→21:38)
[2018-01-04] MEDS: FAMOTIDINE 20 MG TAB PO SCH ×2 (09:00→21:37)
[2018-01-04] MEDS: REMOVE OLD PATCH T-DERMAL SCH (09:00)
[2018-01-04] MEDS ORDERED: FAMOTIDINE 20 MG/2 ML VIAL ONE (10:09)
[2018-01-04] MEDS ORDERED: ACETAMINOPHEN 1000 MG/100 ML 100 ML IV ONE (10:09)
[2018-01-04] MEDS ORDERED: MIDAZOLAM HCL 2 MG/2 ML VIAL ONE (10:09)
[2018-01-04] MEDS ORDERED: VANCOMYCIN HCL 1000 MG VIAL ONE (10:35)
[2018-01-04] MEDS ORDERED: GENTAMICIN SULFATE 80 MG/2 ML VIAL ONE (10:35)
[2018-01-04] MEDS ORDERED: ceFAZolin INJ 1,000 MG VIAL ONE (10:35)
[2018-01-04] MEDS ORDERED: SUGAMMADEX SODIUM 200 MG/2 ML VIAL IV PUSH ONE (10:36)
[2018-01-04] MEDS ORDERED: PHENYLEPH/NS 1000 MCG/10 ML SYR IV ONE (12:00)
[2018-01-04] MEDS ORDERED: ROCURONIUM INJ 50 MG/5 ML SYRINGE IV PUSH ONE (12:00)
[2018-01-04] MEDS ORDERED: LIDOCAINE HCL 1% PF 5 ML SYRINGE OTHER ONE (12:00)
[2018-01-04] MEDS ORDERED: PROPOFOL 200 MG/20 ML AMP IV ONE (12:00)
[2018-01-04] MEDS ORDERED: ONDANSETRON HCL 4 MG/2 ML VIAL IV ONE (12:00)
[2018-01-04] MEDS ORDERED: ceFAZolin INJ 1,000 MG VIAL IV ONE (12:00)
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
[2018-01-04] MEDS ORDERED: DO NOT ADM ANY ANTICOAGULANT DRUGS PRN (12:23)
[2018-01-04] MEDS: LACTATED RINGER'S 1000 ML INJ 1,000 ML IV SCH (13:00)
[2018-01-04] MEDS ORDERED: *morphine SULFATE 10 MG/ML PERIprocedure ONLY ONE (13:07)
[2018-01-04 16:00] VITALS: BP 111/50; PULSE 100; RESP 18; TEMP 98.3; O2SAT 94
[2018-01-04 17:43] VITALS: O2SAT 94
[2018-01-04] MEDS ORDERED: ceFAZolin 2 GM PREMIX 50 ML IV SCH (20:00)
[2018-01-04 20:45] VITALS: BP 119/56; PULSE 106; RESP 20; TEMP 101.1; O2SAT 93
[2018-01-04] MEDS: traZODone HCL 100 MG TAB PO SCH (21:37)
[2018-01-04] MEDS: CEFAZOLIN INJ 2,000 MG in SODIUM CHLORIDE 0.9% INJ 100 ML IV SCH (22:05)
[2018-01-05] MEDS: LACTATED RINGER'S 1000 ML INJ 1,000 ML IV SCH
[2018-01-05 00:40] VITALS: BP 108/58; PULSE 97; RESP 19; TEMP 100.5; O2SAT 95
[2018-01-05] MEDS: CEFAZOLIN INJ 2,000 MG in SODIUM CHLORIDE 0.9% INJ 100 ML IV SCH ×3 (03:45→19:54)
[2018-01-05] MEDS: ACETAMINOPHEN/HYDROcodone 325 MG/5 MG TAB PO PRN ×3 (04:56→18:12)
--- NOTE | 2018-01-05 06:21 | PD.ORT.PN ---
Subjective Subjective Remarks s/p I&D with vac change and revision of exfix left distal tibia and fibula fxs no changes. doing well Objective Vitals Vital Signs Date Time Temp Pulse Resp B/P (MAP) Pulse Ox O2 Delivery O2 Flow Rate FiO2 01/05/18 05:29 19 01/05/18 00:40 100.5 97 19 108/58 (75) 95 01/04/18 22:34 19 01/04/18 20:45 101.1 106 20 119/56 (77) 93 01/04/18 17:43 94 21 01/04/18 16:00 98.3 100 18 111/50 (70) 94 01/04/18 13:15 97.9 63 16 130/58 (82) 100 Room Air 01/04/18 13:00 71 16 136/60 (85) 100 Nasal Cannula 2 01/04/18 12:45 70 16 155/68 (97) 100 Nasal Cannula 2 01/04/18 12:30 78 16 155/68 (97) 99 Nasal Cannula 2 01/04/18 12:23 97.9 76 16 141/65 (90) 100 Simple Mask 10 01/04/18 07:40 98.4 85 18 110/50 (70) 95 I/O 01/04/18 01/04/18 01/04/18 01/05/18 01/05/18 01/05/18 07:00 15:00 23:00 07:00 15:00 23:00 Intake Total 720 ml 845 ml 960 ml Output Total 1450 ml 25 ml 0 ml 1300 ml Balance -730 ml 820 ml 0 ml -340 ml Intake Oral 720 ml 720 ml 960 ml IV Total 125 ml Output Urine Total 1450 ml 1300 ml Drainage Total 0 ml 0 ml Estimated Blood Loss 25 ml # Voids 4 # Bowel Movements 0 0 0 Result Diagram: 01/01/18 0636 Objective Remarks LLE: +exfix. dressings clean and dry. +vac. Wound VAC is functioning but is showing a leak in the seal. significant swelling and blistering of foot. vac setting is on continuous and on abthera setting, not the normal vac setting. Intact sensation with movement of all toes and ankle Assessment & Plan Assessment and Plan 1) Open Left Distal tibia and fibula fxs s/p I&D with vac change and exfix revision -NWB -elevate -maintain vac at all times - will return this morning to re-seal dressing -vac settings: 100mmHg, low, 3:1 -Pin Care BID -patient will need free flap from plastic surgery. will need to be transferred to [facility] for definitive care. Surgeons contacted in [place] and they will accept. plan for transfer today Gordon Rolle/First Ayesha HERNANDEZ Jan 05, 2018 06:20
[2018-01-05 08:00] VITALS: BP 104/55; PULSE 78; RESP 18; TEMP 98.6; O2SAT 97
[2018-01-05] MEDS: INSULIN ASPART SUPPLEMENTAL SCALE SQ SCH ×4 (08:00→19:49)
[2018-01-05] MEDS: FAMOTIDINE 20 MG TAB PO SCH ×2 (08:26→19:51)
[2018-01-05] MEDS: MAGNESIUM HYDROXIDE SUSP 30 ML CUP PO SCH ×2 (08:26→19:51)
[2018-01-05] MEDS: DOCUSATE SODIUM 50 MG/SENNA 8.6 MG TAB PO SCH ×2 (08:26→19:52)
[2018-01-05] MEDS: FUROSEMIDE 20 MG TAB PO SCH ×2 (08:27→18:11)
[2018-01-05] MEDS: GABAPENTIN 400 MG CAP PO SCH ×3 (08:27→18:11)
[2018-01-05] MEDS: SODIUM CHLORIDE 0.9% FLUSH 10 ML FLUSH IV FLUSH SCH ×2 (08:27→19:52)
[2018-01-05] MEDS: NICOTINE 21 MG/24 HR PATCH T-DERMAL SCH (08:27)
[2018-01-05] MEDS: MORPHINE SULFATE 60 MG CONTROLLED RELEASE TAB PO SCH ×2 (08:27→19:51)
[2018-01-05] MEDS: REMOVE OLD PATCH T-DERMAL SCH (08:28)
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
[2018-01-05] MEDS ORDERED: ENOX30P SQ (08:36)
[2018-01-05] MEDS ORDERED: NICO21DI25 T-DERMAL (08:36)
[2018-01-05] MEDS ORDERED: HYDR-3516 PO (08:36)
--- NOTE | 2018-01-05 09:13 | RADRPT ---
EXAM DATE/TIME: 01/05/2018 08:42 [facility] COMPARISON: CHEST SINGLE AP, December 29, 2017, 13:54. INDICATIONS : Fever since yesterday. MEDICAL HISTORY : Non-hodgkins lymphoma. SURGICAL HISTORY : [place]. ENCOUNTER: Subsequent ACUITY: 2 days PAIN SCORE: 0/10 LOCATION: Bilateral chest FINDINGS: A single view of the chest demonstrates the lungs to be symmetrically aerated without evidence of mas s, infiltrate or effusion. Lnujkz-c-Pzop in good position. Mild compensated cardiomegaly Osseous s tructures are intact. CONCLUSION: Mild compensated cardiomegaly Ayush Richardson MD FACR on January 05, 2018 at 9:09 Board Certified Radiologist. This report was verified electronically.
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
[2018-01-05] MEDS ORDERED: ENOXAPARIN SODIUM 30 MG/0.3 ML SYRINGE SQ SCH (11:00)
[2018-01-05 11:35] VITALS: BP 96/53; PULSE 83; RESP 18; TEMP 98.8; O2SAT 94
[2018-01-05 13:24] LABS: AUTOMATED NEUTROPHIL # 4.4 TH/MM3 (1.8-7.7); BASOPHIL % 0.6 % (0.0-2.0); EOSINOPHIL # 0.3 TH/MM3 (0-0.4); EOSINOPHIL % 4.8 % (0.0-4.0); HEMATOCRIT 25.1 % (39.0-51.0); HEMOGLOBIN 8.8 GM/DL (13.0-17.0); LYMPH % 15.8 % (9.0-44.0); MEAN CELL VOLUME 96.5 FL (80.0-100.0); MEAN CORPUSCULAR HGB CONC 35.2 % (32.0-36.0); MEAN PLATELET VOLUME 7.1 FL (7.0-11.0); MONO % 10.6 % (0.0-8.0); MONOCYTE # 0.7 TH/MM3 (0-0.9); NEUT % 68.2 % (16.0-70.0); PLATELET COUNT 247 TH/MM3 (150-450); WHITE BLOOD COUNT 6.5 TH/MM3 (4.0-11.0)
[2018-01-05 13:40] LABS: BICARBONATE 30.9 MEQ/L (21.0-32.0); BLOOD UREA NITROGEN 17 MG/DL (7-18); CALCIUM 8.4 MG/DL (8.5-10.1); CHLORIDE 101 MEQ/L (98-107); CREATININE 1.29 MG/DL (0.60-1.30); GLOMERULAR FILTRATION RATE 56 ML/MIN (>89); GLUCOSE,RANDOM 120 MG/DL (74-106); MAGNESIUM 2.3 MG/DL (1.5-2.5); SODIUM (NA) 140 MEQ/L (136-145)
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
[2018-01-05 16:38] VITALS: BP 105/47; PULSE 94; RESP 17; TEMP 98.5; O2SAT 95
[2018-01-05 18:22] LABS: HEMOGLOBIN A1C 5.4 % (4.3-6.0)
[2018-01-05] MEDS: traZODone HCL 100 MG TAB PO SCH (19:51)
== END 2018-01-05 21:03 | disposition short-term general hospital (02) | DRG 492 ==
LOC: NEPD 12:57 → NEDA 14:05 → NEDH 20:07 → N06A 12-30 03:26
PROVIDERS: ADMIT Surgery; ATTEND Internal Medicine
PROC: 0JDP0ZZ Extraction of Left Lower Leg Subcutaneous Tissue and Fascia, Open Approach (ICD-10-PCS; 2017-12-29)
PROC: 0QSKXZZ Reposition Left Fibula, External Approach (ICD-10-PCS; 2017-12-29)
PROC: 0QSHXZZ Reposition Left Tibia, External Approach (ICD-10-PCS; 2017-12-29)
PROC: 0QHH05Z Insertion of External Fixation Device into Left Tibia, Open Approach (ICD-10-PCS; principal; 2017-12-29 22:30)
PROC: 0QBH0ZZ Excision of Left Tibia, Open Approach (ICD-10-PCS; 2017-12-31)
PROC: 0QW Lower Bones, Revision (ICD-10-PCS; 2017-12-31)
PROC: 0QDH0ZZ Extraction of Left Tibia, Open Approach (ICD-10-PCS; 2018-01-04)
DX: S82.302C Unspecified fracture of lower end of left tibia, initial encounter for open fracture type IIIA, IIIB, or IIIC (principal); S82.832C Other fracture of upper and lower end of left fibula, initial encounter for open fracture type IIIA, IIIB, or IIIC; D62 Acute posthemorrhagic anemia; J98.11 Atelectasis; E11.9 Type 2 diabetes mellitus without complications; G89.29 Other chronic pain; G47.00 Insomnia, unspecified; G62.9 Polyneuropathy, unspecified; R60.0 Localized edema; F17.210 Nicotine dependence, cigarettes, uncomplicated; R50.9 Fever, unspecified; V23.4XXA Motorcycle driver injured in collision with car, pick-up truck or van in traffic accident, initial encounter; Y92.410 Unspecified street and highway as the place of occurrence of the external cause; Z85.72 Personal history of non-Hodgkin lymphomas; Z79.891 Long term (current) use of opiate analgesic
CPT/HCPCS: 27814; 70450; 71045; 72125; 72170; 73590; 73600; 76000; 80048; 82948; 83036; 83735; 85014; 85018; 85025; 85610; 85730; 86850; 86900; 86901; 86920; 90471; 90715; 93005; 94150; 96365; 96368; 96375; 99152; 99153; C1713; J0131; J0690; J1100; J1170; J1580; J1650; J1815; J1885; J1940; J2175; J2250; J2270; J2370; J2405; J2710; J3010; J3370; J7030; J7120; L8699

== ENCOUNTER 2018-01-20 17:27 | Inpatient (IN) | payer MEDICAID ==
[~2018-01-20] VITALS: Ht 188 cm; Wt 132.5 kg
[~2018-01-20 17:27] MED LIST changes: -DEXAMETHASONE SOD PHOS 4 MG/ML VIAL IV ONE; +DOCU1CAP39 PO; +ENOX30P SQ; +FURO20TA PO; +GABA800T PO; -GLYCOPYRROLATE 1 MG/5 ML SYRINGE IV PUSH ONE; +HYDR-3516 PO; -LACTATED RINGER'S 1000 ML INJ 1,000 ML IV ONE; -LIDOCAINE HCL 1% PF 5 ML SYRINGE OTHER ONE; +MAGN30S PO; +MORP1CAP82 PO; -NEOSTIGMINE 5 MG/5 ML SYRINGE IV PUSH ONE; +NICO21DI25 T-DERMAL; -ONDANSETRON HCL 4 MG/2 ML VIAL IV PUSH ONE; -PHENYLEPH/NS 1000 MCG/10 ML SYR IV ONE; +POTA10CA PO; -PROPOFOL 200 MG/20 ML AMP IV ONE; -ROCURONIUM INJ 50 MG/5 ML SYRINGE IV PUSH ONE; +TRAZ100T10 PO
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
[2018-01-21] MEDS ORDERED: NALOXONE HCL 0.4 MG/ML AMP IV PUSH PRN
[2018-01-21] MEDS ORDERED: ACETAMINOPHEN 325 MG TAB PO PRN
[2018-01-21] MEDS ORDERED: ONDANSETRON HCL 4 MG/2 ML VIAL IVP PRN
[2018-01-21] MEDS ORDERED: SENNOSIDES 8.6 MG TAB PO PRN
[2018-01-21] MEDS ORDERED: SODIUM CHLORIDE 0.9% FLUSH 10 ML FLUSH IV FLUSH PRN
[2018-01-21] MEDS ORDERED: BISACODYL 10 MG SUPP RECTAL PRN
[2018-01-21] MEDS ORDERED: MAGNESIUM HYDROXIDE SUSP 30 ML CUP PO PRN
[2018-01-21 00:19] VITALS: BP 140/65; PULSE 76; RESP 17; TEMP 98.7; O2SAT 100
[2018-01-21] MEDS: oxyCODONE/ACETAMINOPHEN 10 MG/325 MG TAB PO PRN ×5 (00:55→21:37)
[2018-01-21] MEDS: GABAPENTIN 400 MG CAP PO SCH ×4 (01:11→16:39)
[2018-01-21] MEDS: DOCUSATE SODIUM 50 MG/SENNA 8.6 MG TAB PO SCH ×3 (01:11→21:36)
[2018-01-21] MEDS ORDERED: DEXTROSE 50% IN WATER 50 ML VIAL(D50) IV PUSH PRN (04:15)
[2018-01-21] MEDS ORDERED: GLUCAGON 1 MG/ML VIAL OTHER PRN (04:15)
[2018-01-21 04:57] VITALS: BP 120/65; PULSE 62; RESP 17; TEMP 97.8; O2SAT 100
[2018-01-21] MEDS: INSULIN ASPART SUPPLEMENTAL SCALE SQ SCH ×4 (07:47→21:43)
[2018-01-21] MEDS: SODIUM CHLORIDE 0.9% FLUSH 10 ML FLUSH IV FLUSH SCH ×2 (07:47→21:36)
[2018-01-21] MEDS: ENOXAPARIN SODIUM 40 MG/0.4 ML SYRINGE SQ SCH (07:48)
[2018-01-21 07:56] VITALS: BP 121/61; PULSE 72; RESP 18; TEMP 98; O2SAT 98
[2018-01-21 08:44] LABS: AUTOMATED NEUTROPHIL # 3.6 TH/MM3 (1.8-7.7); BASOPHIL % 0.6 % (0.0-2.0); EOSINOPHIL # 0.1 TH/MM3 (0-0.4); EOSINOPHIL % 2.3 % (0.0-4.0); HEMATOCRIT 26.8 % (39.0-51.0); HEMOGLOBIN 8.9 GM/DL (13.0-17.0); LYMPH % 21.4 % (9.0-44.0); LYMPHOCYTE # 1.1 TH/MM3 (1.0-4.8); MEAN CELL VOLUME 90.7 FL (80.0-100.0); MEAN CORPUSCULAR HEMOGLOBIN 30.1 PG (27.0-34.0); MEAN CORPUSCULAR HGB CONC 33.3 % (32.0-36.0); MEAN PLATELET VOLUME 6.9 FL (7.0-11.0); MONO % 8.2 % (0.0-8.0); MONOCYTE # 0.4 TH/MM3 (0-0.9); NEUT % 67.5 % (16.0-70.0); PLATELET COUNT 427 TH/MM3 (150-450); RED BLOOD COUNT 2.96 MIL/MM3 (4.50-5.90); RED CELL DISTRIBUTION WIDTH 15.3 % (11.6-17.2); WHITE BLOOD COUNT 5.3 TH/MM3 (4.0-11.0)
--- NOTE | 2018-01-21 09:14 | PD.ORT.PN ---
Subjective Subjective Remarks s/p IMN left tibia s/p free flap of left distal tibia wound doing well. pain controlled. resting comfortably. patient reports that surgery was approx 9 days ago Objective Vitals Vital Signs Date Time Temp Pulse Resp B/P (MAP) Pulse Ox O2 Delivery O2 Flow Rate FiO2 01/21/18 07:56 98.0 72 18 121/61 (81) 98 01/21/18 04:57 97.8 62 17 120/65 (83) 100 01/21/18 01:11 Room Air 01/21/18 00:19 98.7 76 17 140/65 (90) 100 I/O 01/20/18 01/20/18 01/20/18 01/21/18 01/21/18 01/21/18 07:00 15:00 23:00 07:00 15:00 23:00 Intake Total 240 ml Output Total 500 ml 630 ml Balance -260 ml -630 ml Intake Oral 240 ml Output Urine Total 500 ml 600 ml Drainage Total 30 ml Result Diagram: 01/21/18 0649 Objective Remarks RLE: surgical incisions are clean and dry. intact. NVI. drain in place LLE: dressings clean and dry. intact. nvi. Assessment & Plan Assessment and Plan 1) Open Left Distal Tibia fracture with IMN and free flap - approx 9 days postop -NWB -elevate at all times to protect free flap -daily dressing changes with xeroform/4x4/shad -dressings with xeroform/primapore to knee and proximal tibia -daily dressings to right leg wtih primapore/xeroform. do not change medial thigh wound -CM for Rehab placement -ortho clear for discharge -f/u with plastics on grcae in 5 days -f/u with Mathew or PA in 2 weeks Gordon Rolle/Acetone Recovery Worker MARY Jan 21, 2018 09:14
[2018-01-21 09:24] LABS: BICARBONATE 29.4 MEQ/L (21.0-32.0); CALCIUM 8.1 MG/DL (8.5-10.1); CREATININE 0.95 MG/DL (0.60-1.30)
--- NOTE | 2018-01-21 09:58 | PD.WCN.NOT ---
Wound Consult Additional Information: Patient not seen for LLE and R thigh with complicated wound care. Orthopedic MARY Rolle saw patient on 01/21/2018 at 0914 and wrote recommendations and orders for wound care for these areas.Please Defer to Orthopedic surgeon Doctor Mathew and MARY Rolle for any clarification or further orders. Kristen Felder [facility] Jan 21, 2018 09:58
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
[2018-01-21 12:28] VITALS: BP 125/70; PULSE 75; RESP 20; TEMP 98.6; O2SAT 98
[2018-01-21 16:21] VITALS: BP 123/63; PULSE 70; RESP 20; TEMP 98.4; O2SAT 100
[2018-01-21 21:00] VITALS: BP 125/64; PULSE 76; RESP 18; TEMP 98.2; O2SAT 98
[2018-01-22] VITALS (8 sets, daily range): BP systolic 123–160; BP diastolic 60–84; PULSE 59–91; RESP 18–20; TEMP 97.6–99; O2SAT 95–100
[2018-01-22] MEDS: oxyCODONE/ACETAMINOPHEN 10 MG/325 MG TAB PO PRN ×3 (03:04→19:53)
[2018-01-22] MEDS: INSULIN ASPART SUPPLEMENTAL SCALE SQ SCH ×4 (08:00→21:21)
[2018-01-22] MEDS: SODIUM CHLORIDE 0.9% FLUSH 10 ML FLUSH IV FLUSH SCH ×2 (09:00→21:21)
[2018-01-22] MEDS: GABAPENTIN 400 MG CAP PO SCH ×3 (09:29→17:24)
[2018-01-22] MEDS: DOCUSATE SODIUM 50 MG/SENNA 8.6 MG TAB PO SCH ×2 (09:29→19:53)
[2018-01-22] MEDS: ENOXAPARIN SODIUM 40 MG/0.4 ML SYRINGE SQ SCH (09:30)
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
[2018-01-22] MEDS ORDERED: INFLUENZA VIRUS VACCINE (QUADRIVALENT) 0.5 ML SYR IM ONE (10:00)
[2018-01-22] MEDS ORDERED: PNEUMOCOCCAL POLYVALENT INJ 25 MCG/0.5 ML SYR IM ONE (10:00)
[2018-01-23] MEDS: oxyCODONE/ACETAMINOPHEN 10 MG/325 MG TAB PO PRN ×5 (03:55→22:06)
[2018-01-23 04:00] VITALS: BP_SYST 132; BP_SYST 151; BP_DIAS 70; BP_DIAS 84; PULSE 100; PULSE 91; RESP 18; RESP 20; TEMP 97.5; TEMP 98.4; O2SAT 97; O2SAT 98
[2018-01-23 07:39] VITALS: BP 169/78; PULSE 64; RESP 18; TEMP 97.6; O2SAT 97
[2018-01-23] MEDS: INSULIN ASPART SUPPLEMENTAL SCALE SQ SCH ×4 (08:00→21:00)
[2018-01-23] MEDS: GABAPENTIN 400 MG CAP PO SCH ×3 (09:08→17:33)
[2018-01-23] MEDS: DOCUSATE SODIUM 50 MG/SENNA 8.6 MG TAB PO SCH ×2 (09:08→23:35)
[2018-01-23] MEDS: ENOXAPARIN SODIUM 40 MG/0.4 ML SYRINGE SQ SCH (09:09)
[2018-01-23] MEDS: SODIUM CHLORIDE 0.9% FLUSH 10 ML FLUSH IV FLUSH SCH ×2 (09:10→21:00)
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
[2018-01-23 11:37] VITALS: BP 157/64; PULSE 80; RESP 18; TEMP 98.5; O2SAT 96
[2018-01-23 16:00] VITALS: BP 150/50; PULSE 72; RESP 18; TEMP 98.1; O2SAT 96
[2018-01-23 20:00] VITALS: BP_SYST 114; BP_SYST 115; BP_DIAS 53; BP_DIAS 62; PULSE 71; PULSE 79; RESP 18; TEMP 97.5; TEMP 97.7; O2SAT 93
[2018-01-24] VITALS: BP 135/79; PULSE 82; RESP 18; TEMP 97.7; O2SAT 97
[2018-01-24] MEDS: oxyCODONE/ACETAMINOPHEN 10 MG/325 MG TAB PO PRN ×5 (02:10→21:19)
[2018-01-24 04:00] VITALS: BP 156/72; PULSE 66; RESP 18; TEMP 97.5; O2SAT 97
--- NOTE | 2018-01-24 06:51 | PD.ORT.PN ---
Subjective Subjective Remarks s/p IMN left tibia s/p free flap of left distal tibia wound doing well. pain controlled. resting comfortably. Objective Vitals Vital Signs Date Time Temp Pulse Resp B/P (MAP) Pulse Ox O2 Delivery O2 Flow Rate FiO2 01/24/18 04:00 97.5 66 18 156/72 (100) 97 01/24/18 00:00 97.7 82 18 135/79 (97) 97 01/23/18 20:00 97.5 79 18 114/53 (73) 93 01/23/18 16:00 98.1 72 18 150/50 (83) 96 01/23/18 11:37 98.5 80 18 157/64 (95) 96 01/23/18 07:39 97.6 64 18 169/78 (108) 97 I/O 01/23/18 01/23/18 01/23/18 01/24/18 01/24/18 01/24/18 07:00 15:00 23:00 07:00 15:00 23:00 Output Total 1275 ml 40 ml Balance -1275 ml -40 ml Output Urine Total 1275 ml Drainage Total 40 ml # Voids 4 4 3 # Bowel Movements 1 Result Diagram: 01/21/18 0649 01/21/18 0649 Objective Remarks RLE: surgical incisions are clean and dry. intact. NVI. drain in place LLE: dressings clean and dry. intact. nvi. Assessment & Plan Assessment and Plan 1) Open Left Distal Tibia fracture with IMN and free flap - POD 12 -NWB -elevate at all times to protect free flap -daily dressing changes with xeroform/4x4/shad -dressings with xeroform/primapore to knee and proximal tibia -daily dressings to right leg wtih primapore/xeroform. do not change medial thigh wound -drain removed today at bedside -CM for Rehab placement -ortho clear for discharge -f/u with plastics on grace -f/u with Mathew or PA in 2 weeks Gordon Rolle/Simulation Software Engineer MARY Jan 24, 2018 06:51
[2018-01-24] MEDS: INSULIN ASPART SUPPLEMENTAL SCALE SQ SCH ×4 (08:00→21:00)
[2018-01-24 08:13] VITALS: BP 134/74; PULSE 74; RESP 18; TEMP 98; O2SAT 96
[2018-01-24] MEDS: SODIUM CHLORIDE 0.9% FLUSH 10 ML FLUSH IV FLUSH SCH ×3 (08:22→21:20)
[2018-01-24] MEDS: GABAPENTIN 400 MG CAP PO SCH ×3 (08:23→15:58)
[2018-01-24] MEDS: DOCUSATE SODIUM 50 MG/SENNA 8.6 MG TAB PO SCH ×2 (08:23→21:18)
[2018-01-24] MEDS: ENOXAPARIN SODIUM 40 MG/0.4 ML SYRINGE SQ SCH (08:23)
--- NOTE | 2018-01-24 11:37 | HHI.PR ---
Subjective Remarks Follow up Open Left Distal Tibia fracture with IMN and free flap 01/24/18-patient seen and examined, stable and afebrile. NO acute event overnight.Drain removed today.Awaiting for possible d/c to CIR Objective Vitals Vital Signs Date Time Temp Pulse Resp B/P (MAP) Pulse Ox O2 Delivery O2 Flow Rate FiO2 01/24/18 11:23 16 01/24/18 08:13 98.0 74 18 134/74 (94) 96 01/24/18 04:00 97.5 66 18 156/72 (100) 97 01/24/18 00:00 97.7 82 18 135/79 (97) 97 01/23/18 20:00 97.5 79 18 114/53 (73) 93 01/23/18 16:00 98.1 72 18 150/50 (83) 96 01/23/18 11:37 98.5 80 18 157/64 (95) 96 I/O 01/23/18 01/23/18 01/23/18 01/24/18 01/24/18 01/24/18 07:00 15:00 23:00 07:00 15:00 23:00 Output Total 1275 ml 40 ml Balance -1275 ml -40 ml Output Urine Total 1275 ml Drainage Total 40 ml # Voids 4 4 3 # Bowel Movements 1 Result Diagram: 01/21/18 0649 01/21/18 0649 Objective Remarks GENERAL: NAD SKIN: Warm and dry. HEAD: Normocephalic. EYES: No scleral icterus. No injection or drainage. NECK: Supple, trachea midline. No JVD or lymphadenopathy. CARDIOVASCULAR: Regular rate and rhythm without murmurs, gallops, or rubs. RESPIRATORY: Breath sounds equal bilaterally. No accessory muscle use. GASTROINTESTINAL: Abdomen soft, non-tender, nondistended. MUSCULOSKELETAL: No cyanosis, or edema. RLE: surgical incisions are clean and dry. intact. LLE: dressings clean and dry. intact. nvi. BACK: Nontender without obvious deformity. No CVA tenderness. A/P Problem List: (1) Fracture of tibia with fibula, left, closed ICD Code: S82.202A - Unspecified fracture of shaft of left tibia, initial encounter for closed fracture; S82.402A - Unspecified fracture of shaft of left fibula, initial encounter for closed fracture Assessment and Plan 62 years old man with S/p I and D left tibia/fibula, intramedullary nail left tibia, removal of external fixator left tibia, wound VAC assisted closure application on 2017 - Appreciate input from Orthopedic surgery - Wound care -Daily dressing changes with xeroform/4x4/shad -Dressings with xeroform/primapore to knee and proximal tibia -Daily dressings to right leg wtih primapore/xeroform. do not change medial thigh wound - PT -NWB LLE Diabetes - Continue Low-dose sliding scale Peripheral neuropathy - Currently on Gabapentin DVT prophylaxis - Lovenox 40 mg daily Problem Qualifiers (1) Fracture of tibia with fibula, left, closed: Qualified Codes: S82.202A - Unspecified fracture of shaft of left tibia, initial encounter for closed fracture; S82.402A - Unspecified fracture of shaft of left fibula, initial encounter for closed fracture Braulio Hicks MD Jan 24, 2018 11:37
[2018-01-24 12:08] VITALS: BP 123/64; PULSE 96; RESP 18; TEMP 97.8; O2SAT 96
[2018-01-24 16:22] VITALS: BP 127/65; PULSE 82; RESP 18; TEMP 97.9; O2SAT 97
[2018-01-24 20:00] VITALS: BP 121/62; PULSE 81; RESP 20; TEMP 98.1; O2SAT 97
[2018-01-25] VITALS: BP 116/68; PULSE 78; RESP 19; TEMP 98.4; O2SAT 96
[2018-01-25] MEDS: oxyCODONE/ACETAMINOPHEN 10 MG/325 MG TAB PO PRN ×5 (01:54→20:09)
[2018-01-25 04:00] VITALS: BP 133/76; PULSE 67; RESP 19; TEMP 98.3; O2SAT 97
[2018-01-25] MEDS: GABAPENTIN 400 MG CAP PO SCH ×3 (08:00→17:24)
[2018-01-25] MEDS: ENOXAPARIN SODIUM 40 MG/0.4 ML SYRINGE SQ SCH (08:00)
[2018-01-25] MEDS: DOCUSATE SODIUM 50 MG/SENNA 8.6 MG TAB PO SCH ×2 (08:00→20:09)
[2018-01-25] MEDS: INSULIN ASPART SUPPLEMENTAL SCALE SQ SCH ×4 (08:01→20:19)
[2018-01-25] MEDS: SODIUM CHLORIDE 0.9% FLUSH 10 ML FLUSH IV FLUSH SCH ×2 (08:01→20:19)
[2018-01-25 08:20] VITALS: BP 145/71; PULSE 66; RESP 18; TEMP 97.8; O2SAT 98
--- NOTE | 2018-01-25 11:17 | HHI.PR ---
Subjective Remarks Follow up Open Left Distal Tibia fracture with IMN and free flap 01/24/18-patient seen and examined, stable and afebrile. NO acute event overnight.Drain removed today.Awaiting for possible d/c to CIR 01/25/18-patient seen and examined, has no complaint. Afebrile. States, states Medicare his requesting further documentations Objective Vitals Vital Signs Date Time Temp Pulse Resp B/P (MAP) Pulse Ox O2 Delivery O2 Flow Rate FiO2 01/25/18 08:20 97.8 66 18 145/71 (95) 98 01/25/18 04:00 98.3 67 19 133/76 (95) 97 01/25/18 00:00 98.4 78 19 116/68 (84) 96 01/24/18 20:00 98.1 81 20 121/62 (81) 97 01/24/18 16:53 18 01/24/18 16:22 97.9 82 18 127/65 (85) 97 01/24/18 12:08 97.8 96 18 123/64 (83) 96 I/O 01/24/18 01/24/18 01/24/18 01/25/18 01/25/18 01/25/18 07:00 15:00 23:00 07:00 15:00 23:00 Intake Total 600 ml Output Total 1200 ml 750 ml 700 ml Balance -600 ml -750 ml -700 ml Intake Oral 600 ml Output Urine Total 1200 ml 750 ml 700 ml # Voids 3 # Bowel Movements 1 0 1 Result Diagram: 01/21/18 0649 01/21/18 0649 Objective Remarks GENERAL: NAD SKIN: Warm and dry. HEAD: Normocephalic. EYES: No scleral icterus. No injection or drainage. NECK: Supple, trachea midline. No JVD or lymphadenopathy. CARDIOVASCULAR: Regular rate and rhythm without murmurs, gallops, or rubs. RESPIRATORY: Breath sounds equal bilaterally. No accessory muscle use. GASTROINTESTINAL: Abdomen soft, non-tender, nondistended. MUSCULOSKELETAL: No cyanosis, or edema. RLE: surgical incisions are clean and dry. intact. LLE: dressings clean and dry. intact. nvi. BACK: Nontender without obvious deformity. No CVA tenderness. A/P Problem List: (1) Fracture of tibia with fibula, left, closed ICD Code: S82.202A - Unspecified fracture of shaft of left tibia, initial encounter for closed fracture; S82.402A - Unspecified fracture of shaft of left fibula, initial encounter for closed fracture Assessment and Plan 62 years old man with S/p I and D left tibia/fibula, intramedullary nail left tibia, removal of external fixator left tibia, wound VAC assisted closure application on 2017 - Appreciate input from Orthopedic surgery - Wound care -Daily dressing changes with xeroform/4x4/shad -Dressings with xeroform/primapore to knee and proximal tibia -Daily dressings to right leg with primapore/xeroform. do not change medial thigh wound - PT -NWB LLE Diabetes - Continue Low-dose sliding scale Peripheral neuropathy - Currently on Gabapentin DVT prophylaxis - Lovenox 40 mg daily Discharge Planning Awaiting discharge to [facility] Problem Qualifiers (1) Fracture of tibia with fibula, left, closed: Qualified Codes: S82.202A - Unspecified fracture of shaft of left tibia, initial encounter for closed fracture; S82.402A - Unspecified fracture of shaft of left fibula, initial encounter for closed fracture Braulio Hicks MD Jan 25, 2018 11:17
[2018-01-25 12:04] VITALS: BP 131/64; PULSE 76; RESP 18; TEMP 98.3; O2SAT 96
[2018-01-25 16:37] VITALS: BP 137/77; PULSE 76; RESP 18; TEMP 98.1; O2SAT 97
[2018-01-25 20:00] VITALS: BP 113/69; PULSE 81; RESP 21; TEMP 98.1; O2SAT 97
[2018-01-26 00:16] VITALS: BP 123/67; PULSE 70; RESP 19; TEMP 98.1; O2SAT 97
[2018-01-26] MEDS: oxyCODONE/ACETAMINOPHEN 10 MG/325 MG TAB PO PRN ×5 (01:09→20:26)
[2018-01-26 04:00] VITALS: BP 143/76; PULSE 66; RESP 21; TEMP 97.9; O2SAT 98
[2018-01-26] MEDS: GABAPENTIN 400 MG CAP PO SCH ×3 (07:42→18:19)
[2018-01-26] MEDS: ENOXAPARIN SODIUM 40 MG/0.4 ML SYRINGE SQ SCH (07:43)
[2018-01-26] MEDS: DOCUSATE SODIUM 50 MG/SENNA 8.6 MG TAB PO SCH ×2 (07:43→20:26)
[2018-01-26] MEDS: INSULIN ASPART SUPPLEMENTAL SCALE SQ SCH ×4 (07:43→20:27)
[2018-01-26] MEDS: SODIUM CHLORIDE 0.9% FLUSH 10 ML FLUSH IV FLUSH SCH ×2 (07:43→20:27)
[2018-01-26 09:24] VITALS: BP 123/70; PULSE 68; RESP 20; TEMP 98; O2SAT 96
--- NOTE | 2018-01-26 10:10 | HHI.PR ---
Subjective Remarks Follow up Open Left Distal Tibia fracture with IMN and free flap 01/24/18-patient seen and examined, stable and afebrile. NO acute event overnight.Drain removed today.Awaiting for possible d/c to CIR 01/25/18-patient seen and examined, has no complaint. Afebrile. States, states Medicare his requesting further documentations 01/26/18-patient seen and examined, states he can't take care of himself at home. Otherwise currently stable Objective Vitals Vital Signs Date Time Temp Pulse Resp B/P (MAP) Pulse Ox O2 Delivery O2 Flow Rate FiO2 01/26/18 09:24 98.0 68 20 123/70 (87) 96 01/26/18 04:00 97.9 66 21 143/76 (98) 98 01/26/18 00:16 98.1 70 19 123/67 (85) 97 01/25/18 20:00 98.1 81 21 113/69 (84) 97 01/25/18 16:37 98.1 76 18 137/77 (97) 97 01/25/18 12:04 98.3 76 18 131/64 (86) 96 I/O 01/25/18 01/25/18 01/25/18 01/26/18 01/26/18 01/26/18 07:00 15:00 23:00 07:00 15:00 23:00 Output Total 750 ml 700 ml 750 ml 750 ml Balance -750 ml -700 ml -750 ml -750 ml Output Urine Total 750 ml 700 ml 750 ml 750 ml # Bowel Movements 0 1 0 0 Objective Remarks GENERAL: NAD SKIN: Warm and dry. HEAD: Normocephalic. EYES: No scleral icterus. No injection or drainage. NECK: Supple, trachea midline. No JVD or lymphadenopathy. CARDIOVASCULAR: Regular rate and rhythm without murmurs, gallops, or rubs. RESPIRATORY: Breath sounds equal bilaterally. No accessory muscle use. GASTROINTESTINAL: Abdomen soft, non-tender, nondistended. MUSCULOSKELETAL: No cyanosis, or edema. RLE: surgical incisions are clean and dry. intact. LLE: dressings clean and dry. intact. nvi. BACK: Nontender without obvious deformity. No CVA tenderness. A/P Problem List: (1) Fracture of tibia with fibula, left, closed ICD Code: S82.202A - Unspecified fracture of shaft of left tibia, initial encounter for closed fracture; S82.402A - Unspecified fracture of shaft of left fibula, initial encounter for closed fracture Assessment and Plan 62 years old man with S/p I and D left tibia/fibula, intramedullary nail left tibia, removal of external fixator left tibia, wound VAC assisted closure application on 2017 - Appreciate input from Orthopedic surgery - Wound care per protocol -Daily dressing changes with xeroform/4x4/shad -Dressings with xeroform/primapore to knee and proximal tibia -Daily dressings to right leg with primapore/xeroform. do not change medial thigh wound - PT -NWB LLE Diabetes - Continue Low-dose sliding scale Peripheral neuropathy - Currently on Gabapentin DVT prophylaxis - Lovenox 40 mg daily Discharge Planning Awaiting discharge to [facility] Problem Qualifiers (1) Fracture of tibia with fibula, left, closed: Qualified Codes: S82.202A - Unspecified fracture of shaft of left tibia, initial encounter for closed fracture; S82.402A - Unspecified fracture of shaft of left fibula, initial encounter for closed fracture Braulio Hicks MD Jan 26, 2018 10:09
[2018-01-26 12:15] VITALS: BP 130/75; PULSE 75; RESP 20; TEMP 97.9; O2SAT 96
[2018-01-26 15:38] VITALS: BP 121/68; PULSE 82; RESP 20; TEMP 98.6; O2SAT 96
[2018-01-26 20:40] VITALS: BP 125/64; PULSE 79; RESP 17; TEMP 98.4; O2SAT 98
[2018-01-27 00:10] VITALS: BP 120/60; PULSE 67; RESP 19; TEMP 97.6; O2SAT 99
[2018-01-27] MEDS: oxyCODONE/ACETAMINOPHEN 10 MG/325 MG TAB PO PRN ×5 (00:44→23:11)
[2018-01-27 05:00] VITALS: BP 119/66; PULSE 75; RESP 18; TEMP 98; O2SAT 99
--- NOTE | 2018-01-27 07:25 | PD.ORT.PN ---
Subjective Subjective Remarks s/p IMN left tibia s/p free flap of left distal tibia wound doing well. pain controlled. resting comfortably. Objective Vitals Vital Signs Date Time Temp Pulse Resp B/P (MAP) Pulse Ox O2 Delivery O2 Flow Rate FiO2 01/27/18 05:00 98.0 75 18 119/66 (83) 99 01/27/18 00:10 97.6 67 19 120/60 (80) 99 01/26/18 20:40 98.4 79 17 125/64 (84) 98 01/26/18 15:38 98.6 82 20 121/68 (85) 96 01/26/18 12:15 97.9 75 20 130/75 (93) 96 01/26/18 09:24 98.0 68 20 123/70 (87) 96 I/O 01/26/18 01/26/18 01/26/18 01/27/18 01/27/18 01/27/18 07:00 15:00 23:00 07:00 15:00 23:00 Intake Total 1590 ml 1500 ml Output Total 750 ml 1025 ml Balance -750 ml 565 ml 1500 ml Intake Oral 1590 ml 1500 ml Output Urine Total 750 ml 1025 ml # Voids 4 # Bowel Movements 0 2 0 Objective Remarks RLE: surgical incisions are clean and dry. intact. NVI. slight staple irritation present. harvest site healing well. clean and dry LLE: dressings clean and dry. intact. nvi. Assessment & Plan Assessment and Plan 1) Open Left Distal Tibia fracture with IMN and free flap - POD 21 -NWB -elevate at all times to protect free flap -daily dressing changes with xeroform/4x4/shad -dressings with xeroform/primapore to knee and proximal tibia -CM for Rehab placement -ortho clear for discharge -f/u with plastics on grace -f/u with Mathew or MARY in 2 weeks -DC george from right thigh and left knee today. DO NOT REMOVE GEORGE FROM GRAFT ON LOWER ANKLE -DC dressings on medial right thigh -maintain daily dressing changes to right thigh incision until 01/30, then leave open to air Gordon Rolle/Splitter Tender PA Jan 27, 2018 07:25
[2018-01-27] MEDS: INSULIN ASPART SUPPLEMENTAL SCALE SQ SCH ×4 (08:00→21:00)
[2018-01-27 08:07] VITALS: BP 118/63; PULSE 72; RESP 20; TEMP 98; O2SAT 96
[2018-01-27] MEDS: SODIUM CHLORIDE 0.9% FLUSH 10 ML FLUSH IV FLUSH SCH ×2 (09:00→21:00)
[2018-01-27] MEDS: DOCUSATE SODIUM 50 MG/SENNA 8.6 MG TAB PO SCH ×2 (09:38→21:00)
[2018-01-27] MEDS: GABAPENTIN 400 MG CAP PO SCH ×3 (09:39→17:29)
[2018-01-27] MEDS: ENOXAPARIN SODIUM 40 MG/0.4 ML SYRINGE SQ SCH (09:39)
--- NOTE | 2018-01-27 10:18 | HHI.PR ---
Subjective Remarks Follow up Open Left Distal Tibia fracture with IMN and free flap 01/24/18-patient seen and examined, stable and afebrile. NO acute event overnight.Drain removed today.Awaiting for possible d/c to CIR 01/25/18-patient seen and examined, has no complaint. Afebrile. States, states Medicare his requesting further documentations 01/26/18-patient seen and examined, states he can't take care of himself at home. Otherwise currently stable 01/27/18-patient seen and examined,no complaint this AM, george from right thigh and left knee as well as dressings on medial right thigh were d/c this AM Objective Vitals Vital Signs Date Time Temp Pulse Resp B/P (MAP) Pulse Ox O2 Delivery O2 Flow Rate FiO2 01/27/18 08:07 98.0 72 20 118/63 (81) 96 01/27/18 05:00 98.0 75 18 119/66 (83) 99 01/27/18 00:10 97.6 67 19 120/60 (80) 99 01/26/18 20:40 98.4 79 17 125/64 (84) 98 01/26/18 15:38 98.6 82 20 121/68 (85) 96 01/26/18 12:15 97.9 75 20 130/75 (93) 96 I/O 01/26/18 01/26/18 01/26/18 01/27/18 01/27/18 01/27/18 07:00 15:00 23:00 07:00 15:00 23:00 Intake Total 1590 ml 1500 ml Output Total 750 ml 1025 ml Balance -750 ml 565 ml 1500 ml Intake Oral 1590 ml 1500 ml Output Urine Total 750 ml 1025 ml # Voids 4 # Bowel Movements 0 2 0 Objective Remarks GENERAL: NAD SKIN: Warm and dry. HEAD: Normocephalic. EYES: No scleral icterus. No injection or drainage. NECK: Supple, trachea midline. No JVD or lymphadenopathy. CARDIOVASCULAR: Regular rate and rhythm without murmurs, gallops, or rubs. RESPIRATORY: Breath sounds equal bilaterally. No accessory muscle use. GASTROINTESTINAL: Abdomen soft, non-tender, nondistended. MUSCULOSKELETAL: No cyanosis, or edema. RLE: surgical incisions are clean and dry. intact. LLE: grafts to thigh clean BACK: Nontender without obvious deformity. No CVA tenderness. A/P Problem List: (1) Fracture of tibia with fibula, left, closed ICD Code: S82.202A - Unspecified fracture of shaft of left tibia, initial encounter for closed fracture; S82.402A - Unspecified fracture of shaft of left fibula, initial encounter for closed fracture Assessment and Plan 62 years old man with S/p I and D left tibia/fibula, intramedullary nail left tibia, removal of external fixator left tibia, wound VAC assisted closure application on 2017 - Appreciate input from Orthopedic surgery - Wound care per protocol -Dixon from right thigh and left knee were removed today. DO NOT REMOVE GEORGE FROM GRAFT ON LOWER ANKLE -Dressings on medial right thigh was also removed today -maintain daily dressing changes to right thigh incision until 01/30, then leave open to air - PT -NWB LLE Diabetes - Continue Low-dose sliding scale Peripheral neuropathy - Currently on Gabapentin DVT prophylaxis - Lovenox 40 mg daily Discharge Planning Awaiting discharge to [facility] Problem Qualifiers (1) Fracture of tibia with fibula, left, closed: Qualified Codes: S82.202A - Unspecified fracture of shaft of left tibia, initial encounter for closed fracture; S82.402A - Unspecified fracture of shaft of left fibula, initial encounter for closed fracture Braulio Hicks MD Jan 27, 2018 10:18
[2018-01-27 11:36] VITALS: BP 114/64; PULSE 72; RESP 20; TEMP 98.2; O2SAT 97
[2018-01-27 15:03] VITALS: BP 118/68; PULSE 70; RESP 20; TEMP 98.2; O2SAT 99
[2018-01-27] MEDS: oxyCODONE/ACETAMINOPHEN 5 MG/325 MG TAB PO PRN (18:42)
[2018-01-27 20:00] VITALS: BP 140/82; PULSE 91; RESP 18; TEMP 98; O2SAT 99
[2018-01-28] VITALS: BP 127/69; PULSE 74; RESP 18; TEMP 98.4; O2SAT 99
[2018-01-28] MEDS: oxyCODONE/ACETAMINOPHEN 10 MG/325 MG TAB PO PRN ×4 (03:53→16:53)
[2018-01-28 04:00] VITALS: BP 140/70; PULSE 63; RESP 18; TEMP 97.6; O2SAT 96
[2018-01-28 08:00] VITALS: BP 135/72; PULSE 66; RESP 18; TEMP 97.8; O2SAT 99
[2018-01-28] MEDS: INSULIN ASPART SUPPLEMENTAL SCALE SQ SCH ×4 (08:00→21:52)
[2018-01-28] MEDS: DOCUSATE SODIUM 50 MG/SENNA 8.6 MG TAB PO SCH ×2 (08:07→21:40)
[2018-01-28] MEDS: GABAPENTIN 400 MG CAP PO SCH ×3 (08:07→18:40)
[2018-01-28] MEDS: ENOXAPARIN SODIUM 40 MG/0.4 ML SYRINGE SQ SCH (08:08)
[2018-01-28] MEDS: SODIUM CHLORIDE 0.9% FLUSH 10 ML FLUSH IV FLUSH SCH ×2 (08:09→21:00)
--- NOTE | 2018-01-28 10:13 | HHI.PR ---
Subjective Remarks Follow up Open Left Distal Tibia fracture with IMN and free flap 01/24/18-patient seen and examined, stable and afebrile. NO acute event overnight.Drain removed today.Awaiting for possible d/c to CIR 01/25/18-patient seen and examined, has no complaint. Afebrile. States, states Medicare his requesting further documentations 01/26/18-patient seen and examined, states he can't take care of himself at home. Otherwise currently stable 01/27/18-patient seen and examined,no complaint this AM, george from right thigh and left knee as well as dressings on medial right thigh were d/c this AM 01/28/18-patient seen and examined, stable, afebrile, pain to left lower extremity control Objective Vitals Vital Signs Date Time Temp Pulse Resp B/P (MAP) Pulse Ox O2 Delivery O2 Flow Rate FiO2 01/28/18 08:00 97.8 66 18 135/72 (93) 99 01/28/18 04:00 97.6 63 18 140/70 (93) 96 01/28/18 00:00 98.4 74 18 127/69 (88) 99 01/27/18 20:00 98.0 91 18 140/82 (101) 99 01/27/18 15:03 98.2 70 20 118/68 (85) 99 01/27/18 11:36 98.2 72 20 114/64 (81) 97 I/O 01/27/18 01/27/18 01/27/18 01/28/18 01/28/18 01/28/18 07:00 15:00 23:00 07:00 15:00 23:00 Intake Total 1500 ml 940 ml Output Total 620 ml 500 ml Balance 1500 ml 320 ml -500 ml Intake Oral 1500 ml 940 ml Output Urine Total 620 ml 500 ml # Voids 4 # Bowel Movements 0 0 Objective Remarks GENERAL: NAD SKIN: Warm and dry. HEAD: Normocephalic. EYES: No scleral icterus. No injection or drainage. NECK: Supple, trachea midline. No JVD or lymphadenopathy. CARDIOVASCULAR: Regular rate and rhythm without murmurs, gallops, or rubs. RESPIRATORY: Breath sounds equal bilaterally. No accessory muscle use. GASTROINTESTINAL: Abdomen soft, non-tender, nondistended. MUSCULOSKELETAL: No cyanosis, or edema. RLE: surgical incisions are clean and dry. intact. LLE: grafts to thigh clean BACK: Nontender without obvious deformity. No CVA tenderness. A/P Problem List: (1) Fracture of tibia with fibula, left, closed ICD Code: S82.202A - Unspecified fracture of shaft of left tibia, initial encounter for closed fracture; S82.402A - Unspecified fracture of shaft of left fibula, initial encounter for closed fracture Assessment and Plan 62 years old man with S/p I and D left tibia/fibula, intramedullary nail left tibia, removal of external fixator left tibia, wound VAC assisted closure application on 2017 - Appreciate input from Orthopedic surgery - Wound care per protocol -George from right thigh and left knee were removed 01/27. DO NOT REMOVE GEORGE FROM GRAFT ON LOWER ANKLE -Dressings on medial right thigh was also removed 01/27 -maintain daily dressing changes to right thigh incision until 01/30, then leave open to air - PT -NWB LLE Diabetes - Continue Low-dose sliding scale Peripheral neuropathy - Currently on Gabapentin DVT prophylaxis - Lovenox 40 mg daily Discharge Planning Awaiting discharge to [facility] Problem Qualifiers (1) Fracture of tibia with fibula, left, closed: Qualified Codes: S82.202A - Unspecified fracture of shaft of left tibia, initial encounter for closed fracture; S82.402A - Unspecified fracture of shaft of left fibula, initial encounter for closed fracture Braulio Hicks MD Jan 28, 2018 10:13
[2018-01-28 12:00] VITALS: BP 149/71; PULSE 66; RESP 18; TEMP 97.9; O2SAT 99
[2018-01-28 15:58] VITALS: BP 130/73; PULSE 74; RESP 18; TEMP 97.7; O2SAT 99
[2018-01-28 20:40] VITALS: BP 118/61; PULSE 80; RESP 16; TEMP 98.8; O2SAT 97
[2018-01-28] MEDS: oxyCODONE/ACETAMINOPHEN 5 MG/325 MG TAB PO PRN (21:40)
[2018-01-29 00:30] VITALS: BP 120/64; PULSE 88; RESP 17; TEMP 98.4; O2SAT 96
[2018-01-29] MEDS: oxyCODONE/ACETAMINOPHEN 10 MG/325 MG TAB PO PRN ×4 (04:08→20:56)
[2018-01-29 05:30] VITALS: BP 121/76; PULSE 73; RESP 16; TEMP 98; O2SAT 97
[2018-01-29] MEDS: INSULIN ASPART SUPPLEMENTAL SCALE SQ SCH ×4 (08:00→20:59)
[2018-01-29] MEDS: GABAPENTIN 400 MG CAP PO SCH ×3 (08:11→18:41)
[2018-01-29] MEDS: ENOXAPARIN SODIUM 40 MG/0.4 ML SYRINGE SQ SCH (08:12)
[2018-01-29] MEDS: SODIUM CHLORIDE 0.9% FLUSH 10 ML FLUSH IV FLUSH SCH ×2 (08:12→20:56)
[2018-01-29] MEDS: DOCUSATE SODIUM 50 MG/SENNA 8.6 MG TAB PO SCH ×2 (08:12→20:57)
[2018-01-29 08:22] VITALS: BP 134/81; PULSE 66; RESP 18; TEMP 98.5; O2SAT 99
--- NOTE | 2018-01-29 11:00 | HHI.PR ---
Subjective Remarks Follow up Open Left Distal Tibia fracture with IMN and free flap 01/24/18-patient seen and examined, stable and afebrile. NO acute event overnight.Drain removed today.Awaiting for possible d/c to CIR 01/25/18-patient seen and examined, has no complaint. Afebrile. States, states Medicare his requesting further documentations 01/26/18-patient seen and examined, states he can't take care of himself at home. Otherwise currently stable 01/27/18-patient seen and examined,no complaint this AM, george from right thigh and left knee as well as dressings on medial right thigh were d/c this AM 01/28/18-patient seen and examined, stable, afebrile, pain to left lower extremity control 01/29/18-patient seen and examined, no acute event overnight, patient is currently stable and has no complaints Objective Vitals Vital Signs Date Time Temp Pulse Resp B/P (MAP) Pulse Ox O2 Delivery O2 Flow Rate FiO2 01/29/18 08:22 98.5 66 18 134/81 (98) 99 01/29/18 05:30 98.0 73 16 121/76 (91) 97 01/29/18 00:30 98.4 88 17 120/64 (82) 96 01/28/18 20:40 98.8 80 16 118/61 (80) 97 01/28/18 15:58 97.7 74 18 130/73 (92) 99 01/28/18 12:00 97.9 66 18 149/71 (97) 99 I/O 01/28/18 01/28/18 01/28/18 01/29/18 01/29/18 01/29/18 07:00 15:00 23:00 07:00 15:00 23:00 Intake Total 800 ml 1200 ml Output Total 500 ml 1200 ml 1500 ml Balance -500 ml -400 ml -300 ml Intake Oral 800 ml 1200 ml Output Urine Total 500 ml 1200 ml 1500 ml # Voids 1 # Bowel Movements 0 2 Objective Remarks GENERAL: NAD SKIN: Warm and dry. HEAD: Normocephalic. EYES: No scleral icterus. No injection or drainage. NECK: Supple, trachea midline. No JVD or lymphadenopathy. CARDIOVASCULAR: Regular rate and rhythm without murmurs, gallops, or rubs. RESPIRATORY: Breath sounds equal bilaterally. No accessory muscle use. GASTROINTESTINAL: Abdomen soft, non-tender, nondistended. MUSCULOSKELETAL: No cyanosis, or edema. RLE: surgical incisions are clean and dry. intact. LLE: grafts to thigh clean BACK: Nontender without obvious deformity. No CVA tenderness. A/P Problem List: (1) Fracture of tibia with fibula, left, closed ICD Code: S82.202A - Unspecified fracture of shaft of left tibia, initial encounter for closed fracture; S82.402A - Unspecified fracture of shaft of left fibula, initial encounter for closed fracture Assessment and Plan 62 years old man with S/p I and D left tibia/fibula, intramedullary nail left tibia, removal of external fixator left tibia, wound VAC assisted closure application on 2017 - Appreciate input from Orthopedic surgery - Wound care per protocol -George from right thigh and left knee were removed 01/27. DO NOT REMOVE GEORGE FROM GRAFT ON LOWER ANKLE -Dressings on medial right thigh was also removed 01/27 -maintain daily dressing changes to right thigh incision until 01/30, then leave open to air - PT -NWB LLE Diabetes - Continue Low-dose sliding scale Peripheral neuropathy - Currently on Gabapentin DVT prophylaxis - Lovenox 40 mg daily Continue current treatment as of January 29, 2018 Discharge Planning Awaiting discharge to [facility] Problem Qualifiers (1) Fracture of tibia with fibula, left, closed: Qualified Codes: S82.202A - Unspecified fracture of shaft of left tibia, initial encounter for closed fracture; S82.402A - Unspecified fracture of shaft of left fibula, initial encounter for closed fracture Braulio Hicks MD Jan 29, 2018 11:00
[2018-01-29] MEDS: oxyCODONE/ACETAMINOPHEN 5 MG/325 MG TAB PO PRN (12:11)
[2018-01-29 12:19] VITALS: BP 125/64; PULSE 70; RESP 18; TEMP 98.4; O2SAT 97
[2018-01-29 20:43] VITALS: BP 131/64; PULSE 80; RESP 18; TEMP 98.3; O2SAT 98
[2018-01-30 01:25] VITALS: BP 125/75; PULSE 76; RESP 18; TEMP 98.2; O2SAT 96
[2018-01-30] MEDS: oxyCODONE/ACETAMINOPHEN 10 MG/325 MG TAB PO PRN ×5 (02:01→21:29)
[2018-01-30 05:19] VITALS: BP 126/64; PULSE 77; RESP 18; TEMP 98.3; O2SAT 97
[2018-01-30] MEDS: INSULIN ASPART SUPPLEMENTAL SCALE SQ SCH ×4 (08:00→21:00)
[2018-01-30 08:18] VITALS: BP 130/62; PULSE 62; RESP 18; TEMP 97.6; O2SAT 99
--- NOTE | 2018-01-30 08:46 | PD.ORT.PN ---
Subjective Subjective Remarks Patient resting comfortably this morning. States he has had some small blisters develop over the skin grafting donor site on his right thigh. Objective Vitals Vital Signs Date Time Temp Pulse Resp B/P (MAP) Pulse Ox O2 Delivery O2 Flow Rate FiO2 01/30/18 08:18 97.6 62 18 130/62 (84) 99 01/30/18 05:19 98.3 77 18 126/64 (84) 97 01/30/18 01:25 98.2 76 18 125/75 (92) 96 01/29/18 20:43 98.3 80 18 131/64 (86) 98 01/29/18 12:19 98.4 70 18 125/64 (84) 97 I/O 01/29/18 01/29/18 01/29/18 01/30/18 01/30/18 01/30/18 07:00 15:00 23:00 07:00 15:00 23:00 Intake Total 1200 ml Output Total 1500 ml 600 ml 300 ml Balance -300 ml -600 ml -300 ml Intake Oral 1200 ml Output Urine Total 1500 ml 600 ml 300 ml # Bowel Movements 2 Objective Remarks RLE: surgical incisions are clean and dry. Skin graft donor sites appear without signs of infection. There are small serous blisters intact. NVI. clean and dry LLE: dressings clean and dry. intact. nvi. Assessment & Plan Assessment and Plan 1) Open Left Distal Tibia fracture with IMN and free flap - POD 25 -NWB -elevate at all times to protect free flap -daily dressing changes with xeroform/4x4/shad -dressings with xeroform/primapore to knee and proximal tibia -CM for Rehab placement -ortho clear for discharge -f/u with plastics on grace -f/u with Mathew or PA in 2 weeks -DO NOT REMOVE MARIA G FROM GRAFT ON LOWER ANKLE -Okay to leave medial thigh exposed to air. Should the small serous blisters start to open up, would recommend Xeroform and gauze over these. -maintain daily dressing changes to right thigh incision until 01/30, then leave open to air Charo Segovia MD Jan 30, 2018 08:46
[2018-01-30] MEDS: SODIUM CHLORIDE 0.9% FLUSH 10 ML FLUSH IV FLUSH SCH ×2 (09:00→21:30)
[2018-01-30] MEDS: GABAPENTIN 400 MG CAP PO SCH ×3 (09:40→17:29)
[2018-01-30] MEDS: DOCUSATE SODIUM 50 MG/SENNA 8.6 MG TAB PO SCH ×2 (09:41→21:30)
[2018-01-30] MEDS: ENOXAPARIN SODIUM 40 MG/0.4 ML SYRINGE SQ SCH (09:42)
--- NOTE | 2018-01-30 10:14 | HHI.PR ---
Subjective Remarks Follow up Open Left Distal Tibia fracture with IMN and free flap 01/24/18-patient seen and examined, stable and afebrile. NO acute event overnight.Drain removed today.Awaiting for possible d/c to CIR 01/25/18-patient seen and examined, has no complaint. Afebrile. States, states Medicare his requesting further documentations 01/26/18-patient seen and examined, states he can't take care of himself at home. Otherwise currently stable 01/27/18-patient seen and examined,no complaint this AM, george from right thigh and left knee as well as dressings on medial right thigh were d/c this AM 01/28/18-patient seen and examined, stable, afebrile, pain to left lower extremity control 01/29/18-patient seen and examined, no acute event overnight, patient is currently stable and has no complaints 01/30/18-patient seen and examined; doing well and stable. Afebrile. patient was seen by ortho this AM 2/ small serous blisters to right thigh Objective Vitals Vital Signs Date Time Temp Pulse Resp B/P (MAP) Pulse Ox O2 Delivery O2 Flow Rate FiO2 01/30/18 08:18 97.6 62 18 130/62 (84) 99 01/30/18 05:19 98.3 77 18 126/64 (84) 97 01/30/18 01:25 98.2 76 18 125/75 (92) 96 01/29/18 20:43 98.3 80 18 131/64 (86) 98 01/29/18 12:19 98.4 70 18 125/64 (84) 97 I/O 01/29/18 01/29/18 01/29/18 01/30/18 01/30/18 01/30/18 07:00 15:00 23:00 07:00 15:00 23:00 Intake Total 1200 ml Output Total 1500 ml 600 ml 300 ml Balance -300 ml -600 ml -300 ml Intake Oral 1200 ml Output Urine Total 1500 ml 600 ml 300 ml # Bowel Movements 2 Objective Remarks GENERAL: NAD SKIN: Warm and dry. HEAD: Normocephalic. EYES: No scleral icterus. No injection or drainage. NECK: Supple, trachea midline. No JVD or lymphadenopathy. CARDIOVASCULAR: Regular rate and rhythm without murmurs, gallops, or rubs. RESPIRATORY: Breath sounds equal bilaterally. No accessory muscle use. GASTROINTESTINAL: Abdomen soft, non-tender, nondistended. MUSCULOSKELETAL: No cyanosis, or edema. RLE: surgical incisions are clean and dry. intact. LLE: grafts to thigh clean BACK: Nontender without obvious deformity. No CVA tenderness. A/P Problem List: (1) Fracture of tibia with fibula, left, closed ICD Code: S82.202A - Unspecified fracture of shaft of left tibia, initial encounter for closed fracture; S82.402A - Unspecified fracture of shaft of left fibula, initial encounter for closed fracture Assessment and Plan 62 years old man with S/p I and D left tibia/fibula, intramedullary nail left tibia, removal of external fixator left tibia, wound VAC assisted closure application on 2017 - Appreciate input from Orthopedic surgery - Wound care per protocol -[place] from right thigh and left knee were removed 01/27. DO NOT REMOVE GEORGE FROM GRAFT ON LOWER ANKLE -Dressings on medial right thigh was also removed 01/27 -maintain daily dressing changes to right thigh incision until 01/30, then leave open to air -Per Ortho Okay to leave medial thigh exposed to air. Should the small serous blisters start to open up, would recommend Xeroform and gauze over these - PT -NWB LLE Diabetes - Continue Low-dose sliding scale Peripheral neuropathy - Currently on Gabapentin DVT prophylaxis - Lovenox 40 mg daily Continue current treatment as of January 30, 2018 Discharge Planning Awaiting discharge to [facility] Problem Qualifiers (1) Fracture of tibia with fibula, left, closed: Qualified Codes: S82.202A - Unspecified fracture of shaft of left tibia, initial encounter for closed fracture; S82.402A - Unspecified fracture of shaft of left fibula, initial encounter for closed fracture Braulio Hicks MD Jan 30, 2018 10:14
[2018-01-30 12:20] VITALS: BP 123/72; PULSE 73; RESP 18; TEMP 98.4; O2SAT 98
[2018-01-30 15:55] VITALS: BP 134/70; PULSE 71; RESP 18; TEMP 97.6; O2SAT 99
[2018-01-30 20:00] VITALS: BP 126/64; PULSE 81; RESP 18; TEMP 99.8; O2SAT 97
[2018-01-31 01:07] VITALS: BP 119/57; PULSE 78; RESP 18; TEMP 98.5; O2SAT 95
[2018-01-31] MEDS: oxyCODONE/ACETAMINOPHEN 10 MG/325 MG TAB PO PRN ×6 (01:18→22:45)
[2018-01-31 05:20] VITALS: BP 129/72; PULSE 65; RESP 18; TEMP 97.6; O2SAT 97
[2018-01-31 07:50] VITALS: BP 135/65; PULSE 65; RESP 20; TEMP 98.1; O2SAT 97
[2018-01-31] MEDS: INSULIN ASPART SUPPLEMENTAL SCALE SQ SCH ×4 (08:00→21:00)
[2018-01-31] MEDS: DOCUSATE SODIUM 50 MG/SENNA 8.6 MG TAB PO SCH ×2 (08:40→21:05)
[2018-01-31] MEDS: GABAPENTIN 400 MG CAP PO SCH ×3 (08:40→18:36)
[2018-01-31] MEDS: SODIUM CHLORIDE 0.9% FLUSH 10 ML FLUSH IV FLUSH SCH ×2 (08:41→21:00)
[2018-01-31] MEDS: ENOXAPARIN SODIUM 40 MG/0.4 ML SYRINGE SQ SCH (08:41)
--- NOTE | 2018-01-31 11:13 | HHI.PR ---
Subjective Remarks Follow up Open Left Distal Tibia fracture with IMN and free flap 01/24/18-patient seen and examined, stable and afebrile. NO acute event overnight.Drain removed today.Awaiting for possible d/c to CIR 01/25/18-patient seen and examined, has no complaint. Afebrile. States, states Medicare his requesting further documentations 01/26/18-patient seen and examined, states he can't take care of himself at home. Otherwise currently stable 01/27/18-patient seen and examined,no complaint this AM, george from right thigh and left knee as well as dressings on medial right thigh were d/c this AM 01/28/18-patient seen and examined, stable, afebrile, pain to left lower extremity control 01/29/18-patient seen and examined, no acute event overnight, patient is currently stable and has no complaints 01/30/18-patient seen and examined; doing well and stable. Afebrile. patient was seen by ortho this AM 2/2 small serous blisters to right thigh 01/31/18-patient seen and examined; remains stable and no change-doing well Objective Vitals Vital Signs Date Time Temp Pulse Resp B/P (MAP) Pulse Ox O2 Delivery O2 Flow Rate FiO2 01/31/18 07:50 98.1 65 20 135/65 (88) 97 01/31/18 05:20 97.6 65 18 129/72 (91) 97 01/31/18 01:07 98.5 78 18 119/57 (77) 95 01/30/18 20:00 99.8 81 18 126/64 (84) 97 01/30/18 15:55 97.6 71 18 134/70 (91) 99 01/30/18 12:20 98.4 73 18 123/72 (89) 98 I/O 01/30/18 01/30/18 01/30/18 01/31/18 01/31/18 01/31/18 07:00 15:00 23:00 07:00 15:00 23:00 Output Total 300 ml 800 ml 600 ml Balance -300 ml -800 ml -600 ml Output Urine Total 300 ml 800 ml 600 ml # Voids 1 Objective Remarks GENERAL: NAD SKIN: Warm and dry. HEAD: Normocephalic. EYES: No scleral icterus. No injection or drainage. NECK: Supple, trachea midline. No JVD or lymphadenopathy. CARDIOVASCULAR: Regular rate and rhythm without murmurs, gallops, or rubs. RESPIRATORY: Breath sounds equal bilaterally. No accessory muscle use. GASTROINTESTINAL: Abdomen soft, non-tender, nondistended. MUSCULOSKELETAL: No cyanosis, or edema. RLE: surgical incisions are clean and dry. intact. LLE: grafts to thigh clean BACK: Nontender without obvious deformity. No CVA tenderness. A/P Problem List: (1) Fracture of tibia with fibula, left, closed ICD Code: S82.202A - Unspecified fracture of shaft of left tibia, initial encounter for closed fracture; S82.402A - Unspecified fracture of shaft of left fibula, initial encounter for closed fracture Assessment and Plan 62 years old man with S/p I and D left tibia/fibula, intramedullary nail left tibia, removal of external fixator left tibia, wound VAC assisted closure application on 2017 - Appreciate input from Orthopedic surgery - Wound care per protocol -[place] from right thigh and left knee were removed 01/27. DO NOT REMOVE GEORGE FROM GRAFT ON LOWER ANKLE -Dressings on medial right thigh was also removed 01/27 -maintain daily dressing changes to right thigh incision until 01/30, then leave open to air -Per Ortho Okay to leave medial thigh exposed to air. Should the small serous blisters start to open up, would recommend Xeroform and gauze over these - PT -NWB LLE Diabetes - Continue Low-dose sliding scale Peripheral neuropathy - Currently on Gabapentin DVT prophylaxis - Lovenox 40 mg daily Continue current treatment as of January 31, 2018 Discharge Planning Awaiting discharge to [facility] Problem Qualifiers (1) Fracture of tibia with fibula, left, closed: Qualified Codes: S82.202A - Unspecified fracture of shaft of left tibia, initial encounter for closed fracture; S82.402A - Unspecified fracture of shaft of left fibula, initial encounter for closed fracture Braulio Hicks MD Jan 31, 2018 11:13
[2018-01-31 11:45] VITALS: BP 130/82; PULSE 79; RESP 20; TEMP 98.2; O2SAT 100
[2018-01-31 15:43] VITALS: BP 123/60; PULSE 71; RESP 20; TEMP 98.2; O2SAT 99
[2018-01-31 20:00] VITALS: BP 114/57; PULSE 75; RESP 18; TEMP 98.2; O2SAT 98
[2018-02-01 00:34] VITALS: BP 110/79; PULSE 98; RESP 19; TEMP 98.2; O2SAT 98
[2018-02-01] MEDS: oxyCODONE/ACETAMINOPHEN 10 MG/325 MG TAB PO PRN ×5 (02:20→21:37)
[2018-02-01 04:00] VITALS: BP 117/81; PULSE 74; RESP 18; TEMP 97.8; O2SAT 96
[2018-02-01] MEDS: INSULIN ASPART SUPPLEMENTAL SCALE SQ SCH ×4 (07:25→21:51)
[2018-02-01 08:00] VITALS: BP 116/77; PULSE 68; RESP 18; TEMP 97.6; O2SAT 96
--- NOTE | 2018-02-01 08:02 | PD.ORT.PN ---
Subjective Subjective Remarks s/p IMN left tibia s/p free flap of left distal tibia wound doing well. pain controlled. resting comfortably. Objective Vitals Vital Signs Date Time Temp Pulse Resp B/P (MAP) Pulse Ox O2 Delivery O2 Flow Rate FiO2 02/01/18 04:00 97.8 74 18 117/81 (93) 96 02/01/18 00:34 98.2 98 19 110/79 (89) 98 01/31/18 20:00 98.2 75 18 114/57 (76) 98 01/31/18 15:43 98.2 71 20 123/60 (81) 99 01/31/18 11:45 98.2 79 20 130/82 (98) 100 I/O 01/31/18 01/31/18 01/31/18 02/01/18 02/01/18 02/01/18 07:00 15:00 23:00 07:00 15:00 23:00 Intake Total 720 ml Output Total 600 ml 900 ml Balance -600 ml -180 ml Intake Oral 720 ml Output Urine Total 600 ml 900 ml # Voids 4 # Bowel Movements 1 1 Objective Remarks RLE: surgical incisions are clean and dry. Skin graft donor sites appear without signs of infection. There are small serous blisters intact. NVI. clean and dry. incisions healed well LLE: dressings clean and dry. intact. nvi. proximal incisions healed well. dressings removed. lateral surgical incision with significant evidence of necrosis. skin is black. still intact. graft apears to be healing. small evidence of necrosis around perimeter. minimal drainage Assessment & Plan Assessment and Plan 1) Open Left Distal Tibia fracture with IMN and free flap -NWB -elevate at all times to protect free flap -daily dressing changes with xeroform/4x4/shad -dressings with xeroform/prim[place] to knee and proximal tibia -CM for Rehab placement -ortho clear for discharge -f/u with plastics on [facility] -will reach out to Dr Florence who is plastic surgeon in [place] regarding elevation status of leg -as soon as patient is allowed to let leg down adn ambulate with walker, will be fit for discharge -concerned about skin necrosis over lateral ankle. will review with Mathew and Dr Florence from [facility]. -will have to monitor for now. if skin fails, could require further surgery on lateral ankle for skin grafting. will monitor Gordon Rolle/[employer] PA Feb 01, 2018 08:02
[2018-02-01] MEDS: DOCUSATE SODIUM 50 MG/SENNA 8.6 MG TAB PO SCH ×2 (08:39→21:37)
[2018-02-01] MEDS: GABAPENTIN 400 MG CAP PO SCH ×3 (08:39→17:47)
[2018-02-01] MEDS: ENOXAPARIN SODIUM 40 MG/0.4 ML SYRINGE SQ SCH (08:39)
[2018-02-01] MEDS: SODIUM CHLORIDE 0.9% FLUSH 10 ML FLUSH IV FLUSH SCH ×2 (08:40→21:00)
--- NOTE | 2018-02-01 10:40 | HHI.PR ---
Subjective Remarks Follow up Open Left Distal Tibia fracture with IMN and free flap 01/24/18-patient seen and examined, stable and afebrile. NO acute event overnight.Drain removed today.Awaiting for possible d/c to CIR 01/25/18-patient seen and examined, has no complaint. Afebrile. States, states Medicare his requesting further documentations 01/26/18-patient seen and examined, states he can't take care of himself at home. Otherwise currently stable 01/27/18-patient seen and examined,no complaint this AM, george from right thigh and left knee as well as dressings on medial right thigh were d/c this AM 01/28/18-patient seen and examined, stable, afebrile, pain to left lower extremity control 01/29/18-patient seen and examined, no acute event overnight, patient is currently stable and has no complaints 01/30/18-patient seen and examined; doing well and stable. Afebrile. patient was seen by ortho this AM 2/2 small serous blisters to right thigh 01/31/18-patient seen and examined; remains stable and no change-doing well February 01, 2018-patient seen and examined, presence of small evidence of necrosis around perimeter as well as minimal drainage left lower extremity. Otherwise afebrile Objective Vitals Vital Signs Date Time Temp Pulse Resp B/P (MAP) Pulse Ox O2 Delivery O2 Flow Rate FiO2 02/01/18 08:00 97.6 68 18 116/77 (90) 96 02/01/18 04:00 97.8 74 18 117/81 (93) 96 02/01/18 00:34 98.2 98 19 110/79 (89) 98 01/31/18 20:00 98.2 75 18 114/57 (76) 98 01/31/18 15:43 98.2 71 20 123/60 (81) 99 01/31/18 11:45 98.2 79 20 130/82 (98) 100 I/O 01/31/18 01/31/18 01/31/18 02/01/18 02/01/18 02/01/18 07:00 15:00 23:00 07:00 15:00 23:00 Intake Total 720 ml Output Total 600 ml 900 ml Balance -600 ml -180 ml Intake Oral 720 ml Output Urine Total 600 ml 900 ml # Voids 4 # Bowel Movements 1 1 Objective Remarks GENERAL: NAD SKIN: Warm and dry. HEAD: Normocephalic. EYES: No scleral icterus. No injection or drainage. NECK: Supple, trachea midline. No JVD or lymphadenopathy. CARDIOVASCULAR: Regular rate and rhythm without murmurs, gallops, or rubs. RESPIRATORY: Breath sounds equal bilaterally. No accessory muscle use. GASTROINTESTINAL: Abdomen soft, non-tender, nondistended. MUSCULOSKELETAL: No cyanosis, or edema. RLE: surgical incisions are clean and dry. intact. LLE: grafts to thigh clean BACK: Nontender without obvious deformity. No CVA tenderness. A/P Problem List: (1) Fracture of tibia with fibula, left, closed ICD Code: S82.202A - Unspecified fracture of shaft of left tibia, initial encounter for closed fracture; S82.402A - Unspecified fracture of shaft of left fibula, initial encounter for closed fracture Assessment and Plan 62 years old man with S/p I and D left tibia/fibula, intramedullary nail left tibia, removal of external fixator left tibia, wound VAC assisted closure application on 2017 - Appreciate input from Orthopedic surgery - Wound care per protocol -[place] from right thigh and left knee were removed 01/27. DO NOT REMOVE GEORGE FROM GRAFT ON LOWER ANKLE -Dressings on medial right thigh was also removed 01/27 -maintain daily dressing changes to right thigh incision until 01/30, then leave open to air -Per Ortho Okay to leave medial thigh exposed to air. Should the small serous blisters start to open up, would recommend Xeroform and gauze over these -small evidence of necrosis around perimeter. minimal drainage LLE, orthopedic surgery to discuss case with likely surgery for further recommendation - PT -NWB LLE Diabetes - Continue Low-dose sliding scale Peripheral neuropathy - Currently on Gabapentin DVT prophylaxis - Lovenox 40 mg daily Continue current treatment as of January 30, 2018 Discharge Planning Awaiting discharge to [facility] Problem Qualifiers (1) Fracture of tibia with fibula, left, closed: Qualified Codes: S82.202A - Unspecified fracture of shaft of left tibia, initial encounter for closed fracture; S82.402A - Unspecified fracture of shaft of left fibula, initial encounter for closed fracture Braulio Hicks MD Feb 01, 2018 10:39
[2018-02-01 12:00] VITALS: BP 124/57; PULSE 79; RESP 18; TEMP 98.3; O2SAT 96
[2018-02-01 16:00] VITALS: BP 115/55; PULSE 81; RESP 18; TEMP 98.7; O2SAT 96
[2018-02-01 20:00] VITALS: BP 123/74; PULSE 71; RESP 16; TEMP 98; O2SAT 98
[2018-02-02] VITALS: BP 120/67; PULSE 67; RESP 16; TEMP 98.5; O2SAT 96
[2018-02-02] MEDS: oxyCODONE/ACETAMINOPHEN 10 MG/325 MG TAB PO PRN ×5 (02:11→19:58)
[2018-02-02 04:00] VITALS: BP 123/66; PULSE 61; RESP 18; TEMP 97.2; O2SAT 98
[2018-02-02] MEDS: INSULIN ASPART SUPPLEMENTAL SCALE SQ SCH ×4 (07:56→20:09)
[2018-02-02] MEDS: ENOXAPARIN SODIUM 40 MG/0.4 ML SYRINGE SQ SCH (07:58)
[2018-02-02] MEDS: DOCUSATE SODIUM 50 MG/SENNA 8.6 MG TAB PO SCH ×2 (07:58→19:58)
[2018-02-02] MEDS: GABAPENTIN 400 MG CAP PO SCH ×3 (07:58→17:21)
[2018-02-02] MEDS: SODIUM CHLORIDE 0.9% FLUSH 10 ML FLUSH IV FLUSH SCH ×2 (07:58→19:42)
[2018-02-02 08:22] VITALS: BP 124/71; PULSE 63; RESP 20; TEMP 97.6; O2SAT 96
[2018-02-02 12:00] VITALS: BP 118/63; PULSE 66; RESP 20; TEMP 98; O2SAT 97
--- NOTE | 2018-02-02 15:22 | HHI.PR ---
Subjective Remarks Resting comfortably in bed No event overnight Denied chest and or short of breath No fever or chills Objective Vitals Vital Signs Date Time Temp Pulse Resp B/P (MAP) Pulse Ox O2 Delivery O2 Flow Rate FiO2 02/02/18 12:00 98.0 66 20 118/63 (81) 97 02/02/18 08:22 97.6 63 20 124/71 (88) 96 02/02/18 04:00 97.2 61 18 123/66 (85) 98 02/02/18 00:00 98.5 67 16 120/67 (84) 96 02/01/18 20:00 98.0 71 16 123/74 (90) 98 02/01/18 16:00 98.7 81 18 115/55 (75) 96 I/O 02/01/18 02/01/18 02/01/18 02/02/18 02/02/18 02/02/18 07:00 15:00 23:00 07:00 15:00 23:00 Intake Total 480 ml Output Total 400 ml Balance 480 ml -400 ml Intake Oral 480 ml Output Urine Total 400 ml # Voids 4 2 # Bowel Movements 1 1 1 Objective Remarks GENERAL: This is a well-nourished, well-developed patient, in no apparent distress. SKIN: No rashes, warm and dry HEAD: Atraumatic. Normocephalic. EYES: Pupils equal round and reactive. Extraocular motions intact. No scleral icterus. ENT: Nose without bleeding, or drainage, Airway patent. NECK: Trachea midline. Supple CARDIOVASCULAR: Regular rate and rhythm without murmurs, gallops, or rubs. RESPIRATORY: Fair air entry bilaterally. No wheezes, rales, or rhonchi. GASTROINTESTINAL: Abdomen soft, non-tender, nondistended. Positive bowel sounds MUSCULOSKELETAL: Left leg and stabilizer NEUROLOGICAL: Awake and alert. Moves all extremity. Normal speech.no focal neurological deficit A/P Problem List: (1) Fracture of tibia with fibula, left, closed ICD Code: S82.202A - Unspecified fracture of shaft of left tibia, initial encounter for closed fracture; S82.402A - Unspecified fracture of shaft of left fibula, initial encounter for closed fracture Assessment and Plan 62 years old man with S/p I and D left tibia/fibula, intramedullary nail left tibia, removal of external fixator left tibia, wound VAC assisted closure application on 2017 - Appreciate input from Orthopedic surgery - Wound care per protocol -[place] from right thigh and left knee were removed 01/27. DO NOT REMOVE MARIA G FROM GRAFT ON LOWER ANKLE -Dressings on medial right thigh was also removed 01/27 -maintain daily dressing changes to right thigh incision until 01/30, then leave open to air -Per Ortho Okay to leave medial thigh exposed to air. Should the small serous blisters start to open up, would recommend Xeroform and gauze over these -small evidence of necrosis around perimeter. minimal drainage LLE, orthopedic surgery to discuss case with plastic surgery in [place] for further recommendation - PT -NWB LLE Diabetes - Continue Low-dose sliding scale Peripheral neuropathy - Currently on Gabapentin DVT prophylaxis - Lovenox 40 mg daily Continue current treatment as of January 30, 2018 Discharge Planning Awaiting discharge to [facility] once cleared by Orth who recommended continuing monitoring until able to put weight on the leg Problem Qualifiers (1) Fracture of tibia with fibula, left, closed: Qualified Codes: S82.202A - Unspecified fracture of shaft of left tibia, initial encounter for closed fracture; S82.402A - Unspecified fracture of shaft of left fibula, initial encounter for closed fracture Henok Storey MD Feb 02, 2018 15:22
[2018-02-02 16:46] VITALS: BP 128/66; PULSE 71; RESP 20; TEMP 97.7; O2SAT 97
[2018-02-02 20:00] VITALS: BP 117/63; PULSE 72; RESP 20; TEMP 98.8; O2SAT 97
[2018-02-03] VITALS: BP 122/72; PULSE 71; RESP 22; TEMP 97.8; O2SAT 99
[2018-02-03] MEDS: oxyCODONE/ACETAMINOPHEN 10 MG/325 MG TAB PO PRN ×6 (00:28→21:05)
[2018-02-03 06:25] VITALS: BP 127/60; PULSE 66; RESP 19; TEMP 98.7; O2SAT 98
[2018-02-03 07:43] VITALS: BP 121/73; PULSE 69; RESP 20; TEMP 97.3; O2SAT 97
[2018-02-03] MEDS: INSULIN ASPART SUPPLEMENTAL SCALE SQ SCH ×4 (08:00→21:06)
[2018-02-03] MEDS: GABAPENTIN 400 MG CAP PO SCH ×3 (08:29→16:53)
[2018-02-03] MEDS: SODIUM CHLORIDE 0.9% FLUSH 10 ML FLUSH IV FLUSH SCH ×2 (08:29→21:00)
[2018-02-03] MEDS: DOCUSATE SODIUM 50 MG/SENNA 8.6 MG TAB PO SCH ×2 (08:29→21:05)
[2018-02-03] MEDS: ENOXAPARIN SODIUM 40 MG/0.4 ML SYRINGE SQ SCH (08:31)
[2018-02-03 11:43] VITALS: BP 101/56; PULSE 70; RESP 20; TEMP 97.7; O2SAT 95
[2018-02-03 16:21] VITALS: BP 125/61; PULSE 72; RESP 20; TEMP 97.4; O2SAT 96
--- NOTE | 2018-02-03 18:29 | HHI.PR ---
Subjective Remarks Patient resting in bed tonight acute complain Awaiting further recommendation by ortho, plan for transfer to rehab in [place] and to follow-up with plastic surgery there when cleared by orthopedic Objective Vitals Vital Signs Date Time Temp Pulse Resp B/P (MAP) Pulse Ox O2 Delivery O2 Flow Rate FiO2 02/03/18 16:21 97.4 72 20 125/61 (82) 96 02/03/18 11:43 97.7 70 20 101/56 (71) 95 02/03/18 07:43 97.3 69 20 121/73 (89) 97 02/03/18 06:25 98.7 66 19 127/60 (82) 98 02/03/18 00:00 97.8 71 22 122/72 (89) 99 02/02/18 20:00 98.8 72 20 117/63 (81) 97 I/O 02/02/18 02/02/18 02/02/18 02/03/18 02/03/18 02/03/18 07:00 15:00 23:00 07:00 15:00 23:00 Intake Total 600 ml 120 ml 720 ml Output Total 575 ml 550 ml 250 ml 600 ml Balance 25 ml 120 ml -550 ml -250 ml 120 ml Intake Oral 600 ml 120 ml 720 ml Output Urine Total 575 ml 550 ml 250 ml 600 ml # Bowel Movements 3 1 1 Objective Remarks GENERAL: This is a well-nourished, well-developed patient, in no apparent distress. SKIN: No rashes, warm and dry HEAD: Atraumatic. Normocephalic. EYES: Pupils equal round and reactive. Extraocular motions intact. No scleral icterus. ENT: Nose without bleeding, or drainage, Airway patent. NECK: Trachea midline. Supple CARDIOVASCULAR: Regular rate and rhythm without murmurs, gallops, or rubs. RESPIRATORY: Fair air entry bilaterally. No wheezes, rales, or rhonchi. GASTROINTESTINAL: Abdomen soft, non-tender, nondistended. Positive bowel sounds MUSCULOSKELETAL: Left leg and stabilizer NEUROLOGICAL: Awake and alert. Moves all extremity. Normal speech.no focal neurological deficit A/P Problem List: (1) Fracture of tibia with fibula, left, closed ICD Code: S82.202A - Unspecified fracture of shaft of left tibia, initial encounter for closed fracture; S82.402A - Unspecified fracture of shaft of left fibula, initial encounter for closed fracture Assessment and Plan 62 years old man with S/p I and D left tibia/fibula, intramedullary nail left tibia, removal of external fixator left tibia, wound VAC assisted closure application on 2017 - Appreciate input from Orthopedic surgery - Wound care per protocol -Maria G from right thigh and left knee were removed 01/27. DO NOT REMOVE MARIA G FROM GRAFT ON LOWER ANKLE -Dressings on medial right thigh was also removed 01/27 -maintain daily dressing changes to right thigh incision until 01/30, then leave open to air -Per Ortho Okay to leave medial thigh exposed to air. Should the small serous blisters start to open up, would recommend Xeroform and gauze over these -small evidence of necrosis around perimeter. minimal drainage LLE, orthopedic surgery to discuss case with plastic surgery in [place] for further recommendation - PT -NWB LLE 02/03: Continue current care follow recommendation by Ortho Diabetes - Continue Low-dose sliding scale Peripheral neuropathy - Currently on Gabapentin DVT prophylaxis - Lovenox 40 mg daily Continue current treatment as of January 30, 2018 Discharge Planning Awaiting discharge to a rehab in [place] once cleared by Orth who recommended continuing monitoring until able to put weight on the leg Problem Qualifiers (1) Fracture of tibia with fibula, left, closed: Qualified Codes: S82.202A - Unspecified fracture of shaft of left tibia, initial encounter for closed fracture; S82.402A - Unspecified fracture of shaft of left fibula, initial encounter for closed fracture Henok Storey MD Feb 03, 2018 18:29
[2018-02-03 20:00] VITALS: BP 123/58; PULSE 75; RESP 18; TEMP 97.9; O2SAT 95
[2018-02-04] VITALS: BP 130/60; PULSE 80; RESP 18; TEMP 98.1; O2SAT 97
[2018-02-04] MEDS: oxyCODONE/ACETAMINOPHEN 10 MG/325 MG TAB PO PRN ×5 (02:34→20:23)
[2018-02-04 05:00] VITALS: BP 125/70; PULSE 77; RESP 18; TEMP 98.6; O2SAT 99
[2018-02-04] MEDS: INSULIN ASPART SUPPLEMENTAL SCALE SQ SCH ×4 (07:42→20:23)
[2018-02-04] MEDS: SODIUM CHLORIDE 0.9% FLUSH 10 ML FLUSH IV FLUSH SCH ×2 (07:49→20:23)
[2018-02-04] MEDS: GABAPENTIN 400 MG CAP PO SCH ×3 (07:52→16:49)
[2018-02-04] MEDS: ENOXAPARIN SODIUM 40 MG/0.4 ML SYRINGE SQ SCH (07:52)
[2018-02-04] MEDS: DOCUSATE SODIUM 50 MG/SENNA 8.6 MG TAB PO SCH ×2 (07:52→20:23)
[2018-02-04 10:01] VITALS: BP 137/74; PULSE 86; RESP 20; TEMP 97.3; O2SAT 97
[2018-02-04 12:42] VITALS: BP_SYST 121; BP_DIAS 69; BP_DIAS 98; PULSE 76; RESP 20; TEMP 98.1; O2SAT 98
[2018-02-04 15:51] VITALS: BP 116/64; PULSE 81; RESP 20; TEMP 97.9; O2SAT 98
--- NOTE | 2018-02-04 19:39 | HHI.PR ---
Subjective Remarks Patient sitting on the chair today with lower extremity elevated Denied acute complain Objective Vitals Vital Signs Date Time Temp Pulse Resp B/P (MAP) Pulse Ox O2 Delivery O2 Flow Rate FiO2 02/04/18 15:51 97.9 81 20 116/64 (81) 98 02/04/18 12:42 98.1 76 20 121/98 (106) 98 02/04/18 12:42 98.1 76 20 121/69 (86) 98 02/04/18 10:01 97.3 86 20 137/74 (95) 97 02/04/18 05:00 98.6 77 18 125/70 (88) 99 02/04/18 00:00 98.1 80 18 130/60 (83) 97 02/03/18 20:00 97.9 75 18 123/58 (79) 95 I/O 02/03/18 02/03/18 02/03/18 02/04/18 02/04/18 02/04/18 07:00 15:00 23:00 07:00 15:00 23:00 Intake Total 720 ml Output Total 550 ml 250 ml 600 ml 300 ml 250 ml Balance -550 ml -250 ml 120 ml -300 ml -250 ml Intake Oral 720 ml Output Urine Total 550 ml 250 ml 600 ml 300 ml 250 ml # Bowel Movements 1 Objective Remarks GENERAL: This is a well-nourished, well-developed patient, in no apparent distress. SKIN: No rashes, warm and dry HEAD: Atraumatic. Normocephalic. EYES: Pupils equal round and reactive. Extraocular motions intact. No scleral icterus. ENT: Nose without bleeding, or drainage, Airway patent. NECK: Trachea midline. Supple CARDIOVASCULAR: Regular rate and rhythm without murmurs, gallops, or rubs. RESPIRATORY: Fair air entry bilaterally. No wheezes, rales, or rhonchi. GASTROINTESTINAL: Abdomen soft, non-tender, nondistended. Positive bowel sounds MUSCULOSKELETAL: Left leg and stabilizer NEUROLOGICAL: Awake and alert. Moves all extremity. Normal speech.no focal neurological deficit A/P Problem List: (1) Fracture of tibia with fibula, left, closed ICD Code: S82.202A - Unspecified fracture of shaft of left tibia, initial encounter for closed fracture; S82.402A - Unspecified fracture of shaft of left fibula, initial encounter for closed fracture Assessment and Plan 62 years old man with S/p I and D left tibia/fibula, intramedullary nail left tibia, removal of external fixator left tibia, wound VAC assisted closure application on 2017 - Appreciate input from Orthopedic surgery - Wound care per protocol -[place] from right thigh and left knee were removed 01/27. DO NOT REMOVE MARIA G FROM GRAFT ON LOWER ANKLE -Dressings on medial right thigh was also removed 01/27 -maintain daily dressing changes to right thigh incision until 01/30, then leave open to air -Per Ortho Okay to leave medial thigh exposed to air. Should the small serous blisters start to open up, would recommend Xeroform and gauze over these -small evidence of necrosis around perimeter. 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 operations manager - Continue Low-dose sliding scale Peripheral neuropathy - Currently on Gabapentin DVT prophylaxis - Lovenox 40 mg daily Continue current treatment as of January 30, 2018 Discharge Planning Awaiting discharge to [facility] once cleared by Orth who recommended continuing monitoring until able to put weight on the leg Problem Qualifiers (1) Fracture of tibia with fibula, left, closed: Qualified Codes: S82.202A - Unspecified fracture of shaft of left tibia, initial encounter for closed fracture; S82.402A - Unspecified fracture of shaft of left fibula, initial encounter for closed fracture Henok Storey MD Feb 04, 2018 19:39
[2018-02-04 20:00] VITALS: BP 115/56; PULSE 71; RESP 18; TEMP 97.8; O2SAT 99
[2018-02-05 00:35] VITALS: BP 125/70; PULSE 75; RESP 18; TEMP 98.1; O2SAT 99
[2018-02-05] MEDS: oxyCODONE/ACETAMINOPHEN 10 MG/325 MG TAB PO PRN ×6 (01:45→23:58)
[2018-02-05 05:00] VITALS: BP 115/55; PULSE 64; RESP 18; TEMP 97.6; O2SAT 96
[2018-02-05] MEDS: INSULIN ASPART SUPPLEMENTAL SCALE SQ SCH ×4 (08:00→21:00)
[2018-02-05 08:24] VITALS: BP 116/64; PULSE 67; RESP 20; TEMP 97.7; O2SAT 97
[2018-02-05] MEDS: SODIUM CHLORIDE 0.9% FLUSH 10 ML FLUSH IV FLUSH SCH ×2 (09:00→21:00)
[2018-02-05] MEDS: DOCUSATE SODIUM 50 MG/SENNA 8.6 MG TAB PO SCH ×2 (10:07→23:36)
[2018-02-05] MEDS: GABAPENTIN 400 MG CAP PO SCH ×3 (10:07→18:29)
[2018-02-05] MEDS: ENOXAPARIN SODIUM 40 MG/0.4 ML SYRINGE SQ SCH (10:08)
[2018-02-05 11:27] VITALS: BP 114/58; PULSE 79; RESP 20; TEMP 98.3; O2SAT 96
[2018-02-05 16:04] VITALS: BP 115/60; PULSE 82; RESP 20; TEMP 97.3; O2SAT 98
--- NOTE | 2018-02-05 18:16 | HHI.PR ---
Subjective Remarks Sitting on a chair no acute issue awaiting further recommendation from Ortho Objective Vitals Vital Signs Date Time Temp Pulse Resp B/P (MAP) Pulse Ox O2 Delivery O2 Flow Rate FiO2 02/05/18 16:04 97.3 82 20 115/60 (78) 98 02/05/18 11:27 98.3 79 20 114/58 (76) 96 02/05/18 08:24 97.7 67 20 116/64 (81) 97 02/05/18 05:00 97.6 64 18 115/55 (75) 96 02/05/18 00:35 98.1 75 18 125/70 (88) 99 02/04/18 20:00 97.8 71 18 115/56 (75) 99 I/O 02/04/18 02/04/18 02/04/18 02/05/18 02/05/18 02/05/18 07:00 15:00 23:00 07:00 15:00 23:00 Intake Total 940 ml Output Total 300 ml 250 ml Balance -300 ml -250 ml 940 ml Intake Oral 940 ml Output Urine Total 300 ml 250 ml # Voids 4 Objective Remarks GENERAL: This is a well-nourished, well-developed patient, in no apparent distress. SKIN: No rashes, warm and dry HEAD: Atraumatic. Normocephalic. EYES: Pupils equal round and reactive. Extraocular motions intact. No scleral icterus. ENT: Nose without bleeding, or drainage, Airway patent. NECK: Trachea midline. Supple CARDIOVASCULAR: Regular rate and rhythm without murmurs, gallops, or rubs. RESPIRATORY: Fair air entry bilaterally. No wheezes, rales, or rhonchi. GASTROINTESTINAL: Abdomen soft, non-tender, nondistended. Positive bowel sounds MUSCULOSKELETAL: Left leg and stabilizer NEUROLOGICAL: Awake and alert. Moves all extremity. Normal speech.no focal neurological deficit A/P Problem List: (1) Fracture of tibia with fibula, left, closed ICD Code: S82.202A - Unspecified fracture of shaft of left tibia, initial encounter for closed fracture; S82.402A - Unspecified fracture of shaft of left fibula, initial encounter for closed fracture Assessment and Plan 62 years old man with S/p I and D left tibia/fibula, intramedullary nail left tibia, removal of external fixator left tibia, wound VAC assisted closure application on 2017 - Appreciate input from Orthopedic surgery - Wound care per protocol -Maria G from right thigh and left knee were removed 01/27. DO NOT REMOVE MARIA G FROM GRAFT ON LOWER ANKLE -Dressings on medial right thigh was also removed 01/27 -maintain daily dressing changes to right thigh incision until 01/30, then leave open to air -Per Ortho Okay to leave medial thigh exposed to air. Should the small serous blisters start to open up, would recommend Xeroform and gauze over these -small evidence of necrosis around perimeter. minimal drainage LLE, orthopedic surgery discuss case with plastic surgery in [place] for further recommendation - PT -NWB LLE 02/04: Sitting on the chair with leg elevated today, continue following with orthopedic, discussed with nurse and family independence case manager 02/05: Continue current care awaiting further recommendation from Ortho Diabetes - Continue Low-dose sliding scale Peripheral neuropathy - Currently on Gabapentin DVT prophylaxis - Lovenox 40 mg daily Continue current treatment as of January 30, 2018 Discharge Planning Awaiting discharge to [facility] once cleared by Orth who recommended continuing monitoring until able to put weight on the leg Problem Qualifiers (1) Fracture of tibia with fibula, left, closed: Qualified Codes: S82.202A - Unspecified fracture of shaft of left tibia, initial encounter for closed fracture; S82.402A - Unspecified fracture of shaft of left fibula, initial encounter for closed fracture Henok Storey MD Feb 05, 2018 18:16
[2018-02-05 21:30] VITALS: BP 102/59; PULSE 82; RESP 18; TEMP 98; O2SAT 100
[2018-02-06 00:45] VITALS: BP 119/62; PULSE 76; RESP 17; TEMP 97.6; O2SAT 98
[2018-02-06 04:20] VITALS: BP 115/60; PULSE 80; RESP 16; TEMP 98; O2SAT 99
[2018-02-06] MEDS: oxyCODONE/ACETAMINOPHEN 5 MG/325 MG TAB PO PRN ×2 (07:09→21:25)
[2018-02-06] MEDS: INSULIN ASPART SUPPLEMENTAL SCALE SQ SCH ×4 (08:00→21:00)
[2018-02-06] MEDS: SODIUM CHLORIDE 0.9% FLUSH 10 ML FLUSH IV FLUSH SCH ×2 (09:00→21:00)
[2018-02-06] MEDS: GABAPENTIN 400 MG CAP PO SCH ×3 (09:24→17:43)
[2018-02-06] MEDS: ENOXAPARIN SODIUM 40 MG/0.4 ML SYRINGE SQ SCH (09:24)
[2018-02-06] MEDS: DOCUSATE SODIUM 50 MG/SENNA 8.6 MG TAB PO SCH ×2 (09:26→21:00)
[2018-02-06] MEDS: oxyCODONE/ACETAMINOPHEN 10 MG/325 MG TAB PO PRN ×3 (09:30→17:30)
[2018-02-06 09:42] VITALS: BP 121/66; PULSE 68; RESP 20; TEMP 98.3; O2SAT 97
[2018-02-06 11:32] VITALS: BP 114/59; PULSE 73; RESP 20; TEMP 98.5; O2SAT 96
--- NOTE | 2018-02-06 14:09 | HHI.PR ---
Subjective Remarks Resting comfortably in bed No event overnight Denied chest and or short of breath No fever or chills Objective Vitals Vital Signs Date Time Temp Pulse Resp B/P (MAP) Pulse Ox O2 Delivery O2 Flow Rate FiO2 02/06/18 11:32 98.5 73 20 114/59 (77) 96 02/06/18 09:42 98.3 68 20 121/66 (84) 97 02/06/18 04:20 98.0 80 16 115/60 (78) 99 02/06/18 00:45 97.6 76 17 119/62 (81) 98 02/05/18 21:30 98.0 82 18 102/59 (73) 100 02/05/18 16:04 97.3 82 20 115/60 (78) 98 I/O 02/05/18 02/05/18 02/05/18 02/06/18 02/06/18 02/06/18 07:00 15:00 23:00 07:00 15:00 23:00 Intake Total 1940 ml 1000 ml Output Total 1400 ml Balance 1940 ml -400 ml Intake Oral 1940 ml 1000 ml Output Urine Total 1400 ml # Voids 4 1 # Bowel Movements 0 0 Objective Remarks GENERAL: This is a well-nourished, well-developed patient, in no apparent distress. SKIN: No rashes, warm and dry HEAD: Atraumatic. Normocephalic. EYES: Pupils equal round and reactive. Extraocular motions intact. No scleral icterus. ENT: Nose without bleeding, or drainage, Airway patent. NECK: Trachea midline. Supple CARDIOVASCULAR: Regular rate and rhythm without murmurs, gallops, or rubs. RESPIRATORY: Fair air entry bilaterally. No wheezes, rales, or rhonchi. GASTROINTESTINAL: Abdomen soft, non-tender, nondistended. Positive bowel sounds MUSCULOSKELETAL: Left leg and stabilizer NEUROLOGICAL: Awake and alert. Moves all extremity. Normal speech.no focal neurological deficit A/P Problem List: (1) Fracture of tibia with fibula, left, closed ICD Code: S82.202A - Unspecified fracture of shaft of left tibia, initial encounter for closed fracture; S82.402A - Unspecified fracture of shaft of left fibula, initial encounter for closed fracture Assessment and Plan 62 years old man with S/p I and D left tibia/fibula, intramedullary nail left tibia, removal of external fixator left tibia, wound VAC assisted closure application on 2017 - Appreciate input from Orthopedic surgery - Wound care per protocol -Maria G from right thigh and left knee were removed 01/27. DO NOT REMOVE MARIA G FROM GRAFT ON LOWER ANKLE -Dressings on medial right thigh was also removed 01/27 -maintain daily dressing changes to right thigh incision until 01/30, then leave open to air -Per Ortho Okay to leave medial thigh exposed to air. Should the small serous blisters start to open up, would recommend Xeroform and gauze over these -small evidence of necrosis around perimeter. minimal drainage LLE, orthopedic surgery discuss case with plastic surgery in [place] for further recommendation - PT -NWB LLE 02/06: Laying in bed with leg elevated today, will need rehab, daily discussion with case fitter and PT Diabetes - Continue Low-dose sliding scale Peripheral neuropathy - Currently on Gabapentin DVT prophylaxis - Lovenox 40 mg daily Continue current treatment as of January 30, 2018 Discharge Planning Awaiting discharge to [facility] once cleared by Orth who recommended continuing monitoring until able to put weight on the leg Problem Qualifiers (1) Fracture of tibia with fibula, left, closed: Qualified Codes: S82.202A - Unspecified fracture of shaft of left tibia, initial encounter for closed fracture; S82.402A - Unspecified fracture of shaft of left fibula, initial encounter for closed fracture Henok Storey MD Feb 06, 2018 14:09
[2018-02-06 15:44] VITALS: BP 117/57; PULSE 83; RESP 20; TEMP 98.7; O2SAT 96
[2018-02-06 20:00] VITALS: BP 123/59; PULSE 96; RESP 16; RESP 18; TEMP 98.1; O2SAT 95
[2018-02-07] MEDS: oxyCODONE/ACETAMINOPHEN 5 MG/325 MG TAB PO PRN (03:46)
[2018-02-07 04:00] VITALS: BP 120/64; PULSE 88; RESP 16; TEMP 97.6; O2SAT 98
[2018-02-07] MEDS: INSULIN ASPART SUPPLEMENTAL SCALE SQ SCH ×4 (07:40→20:44)
[2018-02-07 08:02] VITALS: BP 131/66; PULSE 72; RESP 17; TEMP 98; O2SAT 97
[2018-02-07] MEDS: oxyCODONE/ACETAMINOPHEN 10 MG/325 MG TAB PO PRN ×4 (08:16→20:29)
[2018-02-07] MEDS: ENOXAPARIN SODIUM 40 MG/0.4 ML SYRINGE SQ SCH (08:17)
[2018-02-07] MEDS: DOCUSATE SODIUM 50 MG/SENNA 8.6 MG TAB PO SCH ×2 (08:17→20:29)
[2018-02-07] MEDS: GABAPENTIN 400 MG CAP PO SCH ×3 (08:17→17:32)
[2018-02-07] MEDS: SODIUM CHLORIDE 0.9% FLUSH 10 ML FLUSH IV FLUSH SCH ×2 (08:17→21:00)
[2018-02-07 12:02] VITALS: BP 116/60; PULSE 80; RESP 19; TEMP 98.7; O2SAT 97
[2018-02-07] MEDS ORDERED: OXYC1TAB63 PO (13:05)
[2018-02-07 16:02] VITALS: BP 117/63; PULSE 76; RESP 17; TEMP 98.3; O2SAT 97
--- NOTE | 2018-02-07 19:03 | HHI.PR ---
Subjective Remarks No acute issue clinically Denied any chest pain short of breath she is afebrile I discussed with the patient the discharge process the patient lives alone in a traveler trailer, it seems to be very unsafe for him to go with a strict recommendation of or so about clearing of the free flap until he see the plastic surgeon in [place], which he mentioned he does not have means and ways to follow-up with him so most likely the patient will be in the left behind without treatment, I discussed with charge nurse case advocate and our nurse test engineering manager for our hospitalist group who we did again discuss with the head of case management and decided on trying to find him a sniff in [place] to be able to get to see Dr. Florence the plastic surgeon Objective Vitals Vital Signs Date Time Temp Pulse Resp B/P (MAP) Pulse Ox O2 Delivery O2 Flow Rate FiO2 02/07/18 16:02 98.3 76 17 117/63 (81) 97 02/07/18 12:02 98.7 80 19 116/60 (78) 97 02/07/18 08:02 98.0 72 17 131/66 (87) 97 02/07/18 04:00 97.6 88 16 120/64 (82) 98 02/06/18 20:00 98.1 96 18 123/59 (80) 95 02/06/18 20:00 98.1 96 16 123/59 (80) 95 I/O 02/06/18 02/06/18 02/06/18 02/07/18 02/07/18 02/07/18 07:00 15:00 23:00 07:00 15:00 23:00 Intake Total 1000 ml 940 ml Output Total 1400 ml 400 ml 1200 ml 500 ml Balance -400 ml 540 ml -1200 ml -500 ml Intake Oral 1000 ml 940 ml Output Urine Total 1400 ml 400 ml 1200 ml 500 ml # Voids 2 1 # Bowel Movements 0 1 Objective Remarks GENERAL: This is a well-nourished, well-developed patient, in no apparent distress. SKIN: No rashes, warm and dry HEAD: Atraumatic. Normocephalic. EYES: Pupils equal round and reactive. Extraocular motions intact. No scleral icterus. ENT: Nose without bleeding, or drainage, Airway patent. NECK: Trachea midline. Supple CARDIOVASCULAR: Regular rate and rhythm without murmurs, gallops, or rubs. RESPIRATORY: Fair air entry bilaterally. No wheezes, rales, or rhonchi. GASTROINTESTINAL: Abdomen soft, non-tender, nondistended. Positive bowel sounds MUSCULOSKELETAL: Left leg and stabilizer NEUROLOGICAL: Awake and alert. Moves all extremity. Normal speech.no focal neurological deficit A/P Problem List: (1) Fracture of tibia with fibula, left, closed ICD Code: S82.202A - Unspecified fracture of shaft of left tibia, initial encounter for closed fracture; S82.402A - Unspecified fracture of shaft of left fibula, initial encounter for closed fracture Assessment and Plan 62 years old man with S/p I and D left tibia/fibula, intramedullary nail left tibia, removal of external fixator left tibia, wound VAC assisted closure application on 2017 - Appreciate input from Orthopedic surgery - Wound care per protocol -[place] from right thigh and left knee were removed 01/27. DO NOT REMOVE MARIA G FROM GRAFT ON LOWER ANKLE -Dressings on medial right thigh was also removed 01/27 -maintain daily dressing changes to right thigh incision until 01/30, then leave open to air -Per Ortho Okay to leave medial thigh exposed to air. Should the small serous blisters start to open up, would recommend Xeroform and gauze over these -small evidence of necrosis around perimeter. minimal drainage LLE, orthopedic surgery discuss case with plastic surgery in [place] for further recommendation - PT -NWB LLE 02/07: I discussed with the patient the discharge process the patient lives alone in a traveler trailer, it seems to be very unsafe for him to go with a strict recommendation of or so about clearing of the free flap until he see the plastic surgeon in [place], which he mentioned he does not have means and ways to follow-up with him so most likely the patient will be in the left behind without treatment, I discussed with charge nurse case advocate and our nurse test engineering manager for our hospitalist group who we did again discuss with the head of case management and decided on trying to find him a sniff in [place] to be able to get to see Dr. Florence the plastic surgeon. Earlier I have discussed with the orthopedic surgeon Dr. Carmona and his nurse who did explain that there clearance is regarding not having further possible intervention that they could have done here in [place] however the emphasized that the patient still definitely need to be seen by the plastic surgeon who is specialized in these cases who is Dr. Florence in [place] and that this critical for him to do and they asked me to make sure the patient will follow definitely, taken this in consideration and the situation of the patient I think the standard patient of care required that we can at least try to secure snf in [place] for him to be able to be taking care of until he is seen by the specialist gastric surgeon Diabetes - Continue Low-dose sliding scale Peripheral neuropathy - Currently on Gabapentin DVT prophylaxis - Lovenox 40 mg daily Continue current treatment as of January 30, 2018 Discharge Planning Awaiting discharge to [facility] once cleared by Orth who recommended continuing monitoring until able to put weight on the leg Problem Qualifiers (1) Fracture of tibia with fibula, left, closed: Qualified Codes: S82.202A - Unspecified fracture of shaft of left tibia, initial encounter for closed fracture; S82.402A - Unspecified fracture of shaft of left fibula, initial encounter for closed fracture Henok Storey MD Feb 07, 2018 19:03
[2018-02-07 20:00] VITALS: BP 110/58; PULSE 76; RESP 16; TEMP 98.5; O2SAT 98
[2018-02-08] VITALS: BP 112/60; PULSE 78; RESP 18; TEMP 98.6; O2SAT 99
[2018-02-08] MEDS: oxyCODONE/ACETAMINOPHEN 10 MG/325 MG TAB PO PRN ×6 (01:00→21:20)
[2018-02-08 04:00] VITALS: BP 116/62; PULSE 74; RESP 16; TEMP 98.1; O2SAT 99
[2018-02-08] MEDS: INSULIN ASPART SUPPLEMENTAL SCALE SQ SCH ×4 (07:16→21:22)
[2018-02-08 07:48] VITALS: BP 119/77; PULSE 60; RESP 20; TEMP 97.8; O2SAT 96
[2018-02-08] MEDS: SODIUM CHLORIDE 0.9% FLUSH 10 ML FLUSH IV FLUSH SCH ×2 (09:00→21:22)
[2018-02-08] MEDS: DOCUSATE SODIUM 50 MG/SENNA 8.6 MG TAB PO SCH ×2 (09:06→21:20)
[2018-02-08] MEDS: ENOXAPARIN SODIUM 40 MG/0.4 ML SYRINGE SQ SCH (09:06)
[2018-02-08] MEDS: GABAPENTIN 400 MG CAP PO SCH ×3 (09:06→17:00)
--- NOTE | 2018-02-08 11:29 | PD.ORT.PN ---
Subjective Subjective Remarks s/p IMN left tibia s/p free flap of left distal tibia wound doing well. pain controlled. resting comfortably. out of bed with walker Objective Vitals Vital Signs Date Time Temp Pulse Resp B/P (MAP) Pulse Ox O2 Delivery O2 Flow Rate FiO2 02/08/18 07:48 97.8 60 20 119/77 (91) 96 02/08/18 04:00 98.1 74 16 116/62 (80) 99 02/08/18 00:00 98.6 78 18 112/60 (77) 99 02/07/18 20:00 98.5 76 16 110/58 (75) 98 02/07/18 16:02 98.3 76 17 117/63 (81) 97 02/07/18 12:02 98.7 80 19 116/60 (78) 97 I/O 02/07/18 02/07/18 02/07/18 02/08/18 02/08/18 02/08/18 07:00 15:00 23:00 07:00 15:00 23:00 Output Total 1200 ml 500 ml 400 ml Balance -1200 ml -500 ml -400 ml Output Urine Total 1200 ml 500 ml 400 ml # Voids 1 1 Objective Remarks RLE: surgical incisions are clean and dry. Skin graft donor sites appear without signs of infection. There are small serous blisters intact. NVI. clean and dry. incisions healed well LLE: dressings clean and dry. intact. nvi. proximal incisions healed well. dressings removed. lateral surgical incision with significant evidence of necrosis. skin is black. still intact. graft apears to be healing. small evidence of necrosis around perimeter. minimal drainage Assessment & Plan Assessment and Plan 1) Open Left Distal Tibia fracture with IMN and free flap -NWB -elevate at all times to protect free flap -daily dressing changes with xeroform/4x4/shad -dressings with xeroform/primapore to knee and proximal tibia -CM for Rehab placement -ortho clear for discharge -f/u with plastics in [place] -ambulate with walker not allowing leg to be down for more than 5-10 min -Cm working on termite exterminator helper discharge plan Gordon Rolle/Lapidary Apprentice PA Feb 08, 2018 11:29
[2018-02-08 12:16] VITALS: BP 121/57; PULSE 92; RESP 20; TEMP 98.3; O2SAT 96
--- NOTE | 2018-02-08 13:38 | HHI.PR ---
Subjective Remarks Patient sitting in the chair with his leg elevated I had a lengthy discussion with him he feels very frustrated that being on a wheelchair with nonweightbearing and continuous slight elevation while he lives in a traveler trailer which is very difficult and inconvenient to navigate and move with a wheelchair with the big issue for that discharge Multiple discussion today with charge nurse, family caseworker, director of the hospitalist group Dr. Ann Objective Vitals Vital Signs Date Time Temp Pulse Resp B/P (MAP) Pulse Ox O2 Delivery O2 Flow Rate FiO2 02/08/18 12:16 98.3 92 20 121/57 (78) 96 02/08/18 07:48 97.8 60 20 119/77 (91) 96 02/08/18 04:00 98.1 74 16 116/62 (80) 99 02/08/18 00:00 98.6 78 18 112/60 (77) 99 02/07/18 20:00 98.5 76 16 110/58 (75) 98 02/07/18 16:02 98.3 76 17 117/63 (81) 97 I/O 02/07/18 02/07/18 02/07/18 02/08/18 02/08/18 02/08/18 07:00 15:00 23:00 07:00 15:00 23:00 Output Total 1200 ml 500 ml 400 ml Balance -1200 ml -500 ml -400 ml Output Urine Total 1200 ml 500 ml 400 ml # Voids 1 1 Objective Remarks GENERAL: This is a well-nourished, well-developed patient, in no apparent distress. SKIN: No rashes, warm and dry HEAD: Atraumatic. Normocephalic. EYES: Pupils equal round and reactive. Extraocular motions intact. No scleral icterus. ENT: Nose without bleeding, or drainage, Airway patent. NECK: Trachea midline. Supple CARDIOVASCULAR: Regular rate and rhythm without murmurs, gallops, or rubs. RESPIRATORY: Fair air entry bilaterally. No wheezes, rales, or rhonchi. GASTROINTESTINAL: Abdomen soft, non-tender, nondistended. Positive bowel sounds MUSCULOSKELETAL: Left leg and stabilizer NEUROLOGICAL: Awake and alert. Moves all extremity. Normal speech.no focal neurological deficit A/P Problem List: (1) Fracture of tibia with fibula, left, closed ICD Code: S82.202A - Unspecified fracture of shaft of left tibia, initial encounter for closed fracture; S82.402A - Unspecified fracture of shaft of left fibula, initial encounter for closed fracture Assessment and Plan 62 years old man with S/p I and D left tibia/fibula, intramedullary nail left tibia, removal of external fixator left tibia, wound VAC assisted closure application on 2017 - Appreciate input from Orthopedic surgery - Wound care per protocol -[place] from right thigh and left knee were removed 01/27. DO NOT REMOVE MARIA G FROM GRAFT ON LOWER ANKLE -Dressings on medial right thigh was also removed 01/27 -maintain daily dressing changes to right thigh incision until 01/30, then leave open to air -Per Ortho Okay to leave medial thigh exposed to air. Should the small serous blisters start to open up, would recommend Xeroform and gauze over these -small evidence of necrosis around perimeter. minimal drainage LLE, orthopedic surgery discuss case with plastic surgery in [place] for further recommendation - PT -NWB LLE 02/07: I discussed with the patient the discharge process the patient lives alone in a traveler trailer, it seems to be very unsafe for him to go with a strict recommendation of or so about clearing of the free flap until he see the plastic surgeon in [place], which he mentioned he does not have means and ways to follow-up with him so most likely the patient will be in the left behind without treatment, I discussed with charge nurse family caseworker and our nurse parking garage manager for our hospitalist group who we did again discuss with the head of case management and decided on trying to find him a sniff in [place] to be able to get to see Dr. Florence the plastic surgeon. Earlier I have discussed with the orthopedic surgeon Dr. Carmona and his nurse who did explain that there clearance is regarding not having further possible intervention that they could have done here in [place] however the emphasized that the patient still definitely need to be seen by the plastic surgeon who is specialized in these cases who is Dr. Florence in [place] and that this critical for him to do and they asked me to make sure the patient will follow definitely, taken this in consideration and the situation of the patient I think the standard patient of care required that we can at least try to secure snf in [place] for him to be able to be taking care of until he is seen by the specialist gastric surgeon 02/08: Again multiple and lengthy discussion with patient, charge nurse, family caseworker, director of the hospitalist group regarding discharge process, I do not feel safe to send the patient to a travel trailer to be by himself with nonweightbearing and strict recommendation from orthopedic to keep leg elevated until seen Dr. Florence the plastic surgeon in [place]. I address that with Dr. Hogue the director of hospitalist Diabetes - Continue Low-dose sliding scale Peripheral neuropathy - Currently on Gabapentin DVT prophylaxis - Lovenox 40 mg daily Continue current treatment as of January 30, 2018 Discharge Planning Awaiting discharge to [facility] once cleared by Orth who recommended continuing monitoring until able to put weight on the leg Problem Qualifiers (1) Fracture of tibia with fibula, left, closed: Qualified Codes: S82.202A - Unspecified fracture of shaft of left tibia, initial encounter for closed fracture; S82.402A - Unspecified fracture of shaft of left fibula, initial encounter for closed fracture Henok Storey MD Feb 08, 2018 13:38
[2018-02-08 15:50] VITALS: BP 102/56; PULSE 83; RESP 20; TEMP 98.3; O2SAT 96
[2018-02-08 21:00] VITALS: BP 125/80; PULSE 68; RESP 19; TEMP 97.6; O2SAT 98
[2018-02-09 00:10] VITALS: BP 118/67; PULSE 79; RESP 16; TEMP 98.4; O2SAT 96
[2018-02-09] MEDS: oxyCODONE/ACETAMINOPHEN 10 MG/325 MG TAB PO PRN ×5 (02:10→22:42)
[2018-02-09 04:45] VITALS: BP 129/61; PULSE 75; RESP 16; TEMP 97.1; O2SAT 98
[2018-02-09 08:00] VITALS: BP 111/58; PULSE 66; RESP 17; TEMP 98; O2SAT 97
[2018-02-09] MEDS: INSULIN ASPART SUPPLEMENTAL SCALE SQ SCH ×4 (08:00→21:00)
[2018-02-09] MEDS: GABAPENTIN 400 MG CAP PO SCH ×3 (08:15→17:44)
[2018-02-09] MEDS: DOCUSATE SODIUM 50 MG/SENNA 8.6 MG TAB PO SCH ×2 (08:15→21:00)
[2018-02-09] MEDS: ENOXAPARIN SODIUM 40 MG/0.4 ML SYRINGE SQ SCH (08:15)
[2018-02-09] MEDS: SODIUM CHLORIDE 0.9% FLUSH 10 ML FLUSH IV FLUSH SCH ×2 (08:16→21:00)
[2018-02-09] MEDS ORDERED: WHEEMIS3 (11:08)
[2018-02-09 12:00] VITALS: BP 118/60; PULSE 73; RESP 18; TEMP 97.9; O2SAT 99
--- NOTE | 2018-02-09 14:49 | HHI.PR ---
Subjective Remarks Patient reports he is feeling okay. Pain is controlled. He states he is unable to return to his trailer because he will not be able to use the bathroom given the condition of his leg. Objective Vitals Vital Signs Date Time Temp Pulse Resp B/P (MAP) Pulse Ox O2 Delivery O2 Flow Rate FiO2 02/09/18 12:00 97.9 73 18 118/60 (79) 99 02/09/18 08:00 98.0 66 17 111/58 (75) 97 02/09/18 04:45 97.1 75 16 129/61 (83) 98 02/09/18 00:10 98.4 79 16 118/67 (84) 96 02/08/18 21:00 97.6 68 19 125/80 (95) 98 02/08/18 15:50 98.3 83 20 102/56 (71) 96 I/O 02/08/18 02/08/18 02/08/18 02/09/18 02/09/18 02/09/18 06:59 14:59 22:59 06:59 14:59 22:59 Intake Total 800 ml 1050 ml Output Total 400 ml 350 ml Balance -400 ml 800 ml 1050 ml -350 ml Intake Oral 800 ml 1050 ml Output Urine Total 400 ml 350 ml # Voids 1 7 4 # Bowel Movements 0 3 Objective Remarks GENERAL: This is a well-nourished, well-developed patient, in no apparent distress. CARDIOVASCULAR: Normal rate and regular rhythm without murmurs, gallops, or rubs. RESPIRATORY: Good respiratory efforts. Breath sounds equal and clear to auscultation bilaterally. GASTROINTESTINAL: Abdomen soft, non-tender, non-distended. Normal active bowel sounds MUSCULOSKELETAL: Right lower extremity have multiple sites of graft. Left lower extremity is wrapped. Neurovascularly intact at the toes. NEURO: Alert & Oriented x4 to person, place, time, situation. Moves all ext x4 PSYCH: Appropriate mood and affect. A/P Problem List: (1) Fracture of tibia with fibula, left, closed ICD Code: S82.202A - Unspecified fracture of shaft of left tibia, initial encounter for closed fracture; S82.402A - Unspecified fracture of shaft of left fibula, initial encounter for closed fracture Assessment and Plan 62 years old man: S/p I and D left tibia/fibula, intramedullary nail left tibia, removal of external fixator left tibia, wound VAC assisted closure application on 2017 - Appreciate input from Orthopedic surgery - Wound care per protocol -Maria G from right thigh and left knee were removed 01/27. DO NOT REMOVE MARIA G FROM GRAFT ON LOWER ANKLE -Dressings on medial right thigh was also removed 01/27 -maintain daily dressing changes to right thigh incision until 01/30, then leave open to air -Per Ortho Okay to leave medial thigh exposed to air. Should the small serous blisters start to open up, would recommend Xeroform and gauze over these -small evidence of necrosis around perimeter. minimal drainage LLE, orthopedic surgery discuss case with plastic surgery in [place] for further recommendation. The patient is to follow-up in [place] with plastic surgery. - PT -NWB LLE Diabetes - Continue Low-dose sliding scale Peripheral neuropathy - Currently on Gabapentin DVT prophylaxis - Lovenox 40 mg daily Discharge Planning Not a safe discharge to his trailer. He needs follow-up with plastic surgery, Dr. Florence in [place]. Hospital looking into placement into a motel until his appointment. Case management following. Problem Qualifiers (1) Fracture of tibia with fibula, left, closed: Qualified Codes: S82.202A - Unspecified fracture of shaft of left tibia, initial encounter for closed fracture; S82.402A - Unspecified fracture of shaft of left fibula, initial encounter for closed fracture Everardo Jackman MD Feb 09, 2018 14:49
[2018-02-09 16:00] VITALS: BP 116/64; PULSE 82; RESP 18; TEMP 98.7; O2SAT 98
[2018-02-09 21:13] VITALS: BP 118/58; PULSE 78; RESP 18; TEMP 98.5; O2SAT 98
[2018-02-10 00:15] VITALS: BP 120/67; PULSE 68; RESP 19; TEMP 98.8; O2SAT 99
[2018-02-10] MEDS: oxyCODONE/ACETAMINOPHEN 10 MG/325 MG TAB PO PRN ×6 (02:41→22:28)
[2018-02-10 04:20] VITALS: BP 130/80; PULSE 75; RESP 18; TEMP 98; O2SAT 98
[2018-02-10 08:00] VITALS: BP 112/59; PULSE 62; RESP 16; TEMP 97.7; O2SAT 94
[2018-02-10] MEDS: INSULIN ASPART SUPPLEMENTAL SCALE SQ SCH ×4 (08:00→20:46)
[2018-02-10] MEDS: SODIUM CHLORIDE 0.9% FLUSH 10 ML FLUSH IV FLUSH SCH ×2 (08:07→20:40)
[2018-02-10] MEDS: GABAPENTIN 400 MG CAP PO SCH ×3 (08:08→18:13)
[2018-02-10] MEDS: ENOXAPARIN SODIUM 40 MG/0.4 ML SYRINGE SQ SCH (08:08)
[2018-02-10] MEDS: DOCUSATE SODIUM 50 MG/SENNA 8.6 MG TAB PO SCH ×2 (08:09→20:40)
[2018-02-10 12:00] VITALS: BP 129/75; PULSE 76; RESP 17; TEMP 98.2; O2SAT 99
--- NOTE | 2018-02-10 14:52 | HHI.PR ---
Subjective Remarks Patient reports he is feeling okay. Has been working with physical therapy. Pain is controlled. Objective Vitals Vital Signs Date Time Temp Pulse Resp B/P (MAP) Pulse Ox O2 Delivery O2 Flow Rate FiO2 02/10/18 12:00 98.2 76 17 129/75 (93) 99 02/10/18 08:00 97.7 62 16 112/59 (76) 94 02/10/18 04:20 98.0 75 18 130/80 (97) 98 02/10/18 00:15 98.8 68 19 120/67 (84) 99 02/09/18 21:13 98.5 78 18 118/58 (78) 98 02/09/18 16:00 98.7 82 18 116/64 (81) 98 I/O 02/09/18 02/09/18 02/09/18 02/10/18 02/10/18 02/10/18 07:00 15:00 23:00 07:00 15:00 23:00 Intake Total 1050 ml 1200 ml Output Total 350 ml 500 ml 450 ml Balance 1050 ml -350 ml -500 ml 750 ml Intake Oral 1050 ml 1200 ml Output Urine Total 350 ml 500 ml 450 ml # Voids 4 3 # Bowel Movements 3 0 Objective Remarks GENERAL: This is a well-nourished, well-developed patient, in no apparent distress. CARDIOVASCULAR: Normal rate and regular rhythm without murmurs, gallops, or rubs. RESPIRATORY: Good respiratory efforts. Breath sounds equal and clear to auscultation bilaterally. GASTROINTESTINAL: Abdomen soft, non-tender, non-distended. Normal active bowel sounds MUSCULOSKELETAL: Right lower extremity have multiple sites of graft. Left lower extremity is wrapped. Neurovascularly intact at the toes. NEURO: Alert & Oriented x4 to person, place, time, situation. Moves all ext x4 PSYCH: Appropriate mood and affect. A/P Problem List: (1) Fracture of tibia with fibula, left, closed ICD Code: S82.202A - Unspecified fracture of shaft of left tibia, initial encounter for closed fracture; S82.402A - Unspecified fracture of shaft of left fibula, initial encounter for closed fracture Assessment and Plan 62 years old man: S/p I and D left tibia/fibula, intramedullary nail left tibia, removal of external fixator left tibia, wound VAC assisted closure application on 3/22/ 2018 - Appreciate input from Orthopedic surgery - Wound care per protocol -[place] from right thigh and left knee were removed 01/27. DO NOT REMOVE MARIA G FROM GRAFT ON LOWER ANKLE -Dressings on medial right thigh was also removed 01/27 -maintain daily dressing changes to right thigh incision until 01/30, then leave open to air -Per Ortho Okay to leave medial thigh exposed to air. Should the small serous blisters start to open up, would recommend Xeroform and gauze over these -The patient is to follow-up in [place] with plastic surgery. - PT -NWB LLE Diabetes - Continue Low-dose sliding scale Peripheral neuropathy - Currently on Gabapentin DVT prophylaxis - Lovenox 40 mg daily Discharge Planning Discussed discharge planning at length with the patient. He is progressing with physical therapy. He is figuring out ways to be able to return to his trailer. Physical therapy working on steps. Discussed with case management. He has an appointment to follow-up with Dr. Florence in [place] next . He needs transportation set up. Will need assistance with home health. Will revisit for possible discharge tomorrow. Problem Qualifiers (1) Fracture of tibia with fibula, left, closed: Qualified Codes: S82.202A - Unspecified fracture of shaft of left tibia, initial encounter for closed fracture; S82.402A - Unspecified fracture of shaft of left fibula, initial encounter for closed fracture Everardo Jackman MD Feb 10, 2018 14:52
[2018-02-10] MEDS ORDERED: COMMODE 3-IN-11 MIS (14:54)
[2018-02-10 16:00] VITALS: BP 109/52; PULSE 65; RESP 17; TEMP 97.5; O2SAT 99
[2018-02-10 20:00] VITALS: BP 115/64; PULSE 73; RESP 18; TEMP 97.4; O2SAT 97
[2018-02-10] MEDS: oxyCODONE/ACETAMINOPHEN 5 MG/325 MG TAB PO PRN (20:40)
[2018-02-10] MEDS: METHOCARBAMOL 500 MG TAB PO PRN (20:40)
[2018-02-11] VITALS: BP 135/63; PULSE 72; RESP 18; TEMP 98.3; O2SAT 96
[2018-02-11] MEDS: oxyCODONE/ACETAMINOPHEN 5 MG/325 MG TAB PO PRN (01:11)
[2018-02-11] MEDS: oxyCODONE/ACETAMINOPHEN 10 MG/325 MG TAB PO PRN ×5 (03:57→21:17)
[2018-02-11 04:00] VITALS: BP 113/56; PULSE 65; RESP 18; TEMP 97.4; O2SAT 97
--- NOTE | 2018-02-11 07:16 | PD.ORT.PN ---
Subjective Subjective Remarks Resting comfortably in bed Objective Vitals Vital Signs Date Time Temp Pulse Resp B/P (MAP) Pulse Ox O2 Delivery O2 Flow Rate FiO2 02/11/18 00:00 98.3 72 18 135/63 (87) 96 02/10/18 20:00 97.4 73 18 115/64 (81) 97 02/10/18 16:00 97.5 65 17 109/52 (71) 99 02/10/18 12:00 98.2 76 17 129/75 (93) 99 02/10/18 08:00 97.7 62 16 112/59 (76) 94 I/O 02/10/18 02/10/18 02/10/18 02/11/18 02/11/18 02/11/18 07:00 15:00 23:00 07:00 15:00 23:00 Intake Total 1200 ml Output Total 450 ml Balance 750 ml Intake Oral 1200 ml Output Urine Total 450 ml # Voids 3 # Bowel Movements 0 1 Objective Remarks RLE: surgical incisions are clean and dry. Skin graft donor sites appear without signs of infection. . NVI. clean and dry. incisions healed well LLE: dressings clean and dry. intact. nvi. proximal incisions healed well. dressings removed. lateral surgical incision with significant evidence of necrosis. skin is black. still intact. graft apears to be healing. small evidence of necrosis around perimeter. minimal drainage Assessment & Plan Assessment and Plan 1) Open Left Distal Tibia fracture with IMN and free flap -NWB -elevate at all times to protect free flap -daily dressing changes with xeroform/4x4/shad -no cling wrap -dressings with xeroform/prim[place] to knee and proximal tibia -CM for Rehab placement -ortho clear for discharge -f/u with plastics in [place] -ambulate with walker not allowing leg to be down for more than 5-10 min -Cm working on group home discharge plan Mychal Francisco Jr. Feb 11, 2018 07:16
[2018-02-11 08:00] VITALS: BP 115/58; PULSE 71; RESP 18; TEMP 97.7; O2SAT 97
[2018-02-11] MEDS: INSULIN ASPART SUPPLEMENTAL SCALE SQ SCH ×4 (08:00→21:00)
[2018-02-11] MEDS: ENOXAPARIN SODIUM 40 MG/0.4 ML SYRINGE SQ SCH (08:11)
[2018-02-11] MEDS: GABAPENTIN 400 MG CAP PO SCH ×3 (08:11→17:12)
[2018-02-11] MEDS: DOCUSATE SODIUM 50 MG/SENNA 8.6 MG TAB PO SCH ×2 (08:12→21:16)
[2018-02-11] MEDS: SODIUM CHLORIDE 0.9% FLUSH 10 ML FLUSH IV FLUSH SCH ×2 (08:12→21:00)
[2018-02-11 12:00] VITALS: BP 126/62; PULSE 78; RESP 18; TEMP 98.5; O2SAT 98
--- NOTE | 2018-02-11 12:32 | HHI.PR ---
Subjective Remarks Patient reports he is feeling okay. Pain is controlled. He is happy about having appointment scheduled for plastic surgery in [place]. Objective Vitals Vital Signs Date Time Temp Pulse Resp B/P (MAP) Pulse Ox O2 Delivery O2 Flow Rate FiO2 02/11/18 12:00 98.5 78 18 126/62 (83) 98 02/11/18 08:00 97.7 71 18 115/58 (77) 97 02/11/18 04:00 97.4 65 18 113/56 (75) 97 02/11/18 00:00 98.3 72 18 135/63 (87) 96 02/10/18 20:00 97.4 73 18 115/64 (81) 97 02/10/18 16:00 97.5 65 17 109/52 (71) 99 I/O 02/10/18 02/10/18 02/10/18 02/11/18 02/11/18 02/11/18 07:00 15:00 23:00 07:00 15:00 23:00 Intake Total 1200 ml Output Total 450 ml Balance 750 ml Intake Oral 1200 ml Output Urine Total 450 ml # Voids 3 2 # Bowel Movements 0 1 Objective Remarks GENERAL: This is a well-nourished, well-developed patient, in no apparent distress. CARDIOVASCULAR: Normal rate and regular rhythm without murmurs, gallops, or rubs. RESPIRATORY: Good respiratory efforts. Breath sounds equal and clear to auscultation bilaterally. GASTROINTESTINAL: Abdomen soft, non-tender, non-distended. Normal active bowel sounds MUSCULOSKELETAL: Right lower extremity have multiple sites of graft. Left lower extremity is wrapped. Neurovascularly intact at the toes. NEURO: Alert & Oriented x4 to person, place, time, situation. Moves all ext x4 PSYCH: Appropriate mood and affect. A/P Problem List: (1) Fracture of tibia with fibula, left, closed ICD Code: S82.202A - Unspecified fracture of shaft of left tibia, initial encounter for closed fracture; S82.402A - Unspecified fracture of shaft of left fibula, initial encounter for closed fracture Assessment and Plan 62 years old man: S/p I and D left tibia/fibula, intramedullary nail left tibia, removal of external fixator left tibia, wound VAC assisted closure application on 2017 - Appreciate input from Orthopedic surgery - Wound care per protocol -[place] from right thigh and left knee were removed 01/27. DO NOT REMOVE MARIA G FROM GRAFT ON LOWER ANKLE -Dressings on medial right thigh was also removed 01/27 -maintain daily dressing changes to right thigh incision until 01/30, then leave open to air -Per Ortho Okay to leave medial thigh exposed to air. Should the small serous blisters start to open up, would recommend Xeroform and gauze over these -The patient is to follow-up in [place] with plastic surgery. - PT -NWB LLE Diabetes - Continue Low-dose sliding scale Peripheral neuropathy - Currently on Gabapentin DVT prophylaxis - Lovenox 40 mg daily Discharge Planning Discussed discharge planning at length with the patient. He is progressing with physical therapy. Discussed with case management. Awaiting for DME. Once everything is set up, he can be discharged home Problem Qualifiers (1) Fracture of tibia with fibula, left, closed: Qualified Codes: S82.202A - Unspecified fracture of shaft of left tibia, initial encounter for closed fracture; S82.402A - Unspecified fracture of shaft of left fibula, initial encounter for closed fracture Everardo Jackman MD Feb 11, 2018 12:32
[2018-02-11 16:00] VITALS: BP 122/60; PULSE 66; RESP 18; TEMP 98.2; O2SAT 98
[2018-02-11 20:00] VITALS: BP 119/59; PULSE 72; RESP 18; TEMP 97.9; O2SAT 95
[2018-02-11] MEDS: METHOCARBAMOL 500 MG TAB PO PRN (21:17)
[2018-02-12] VITALS: BP_SYST 119; BP_SYST 128; BP_DIAS 59; BP_DIAS 72; PULSE 60; PULSE 72; RESP 18; TEMP 97.9; O2SAT 95; O2SAT 99
[2018-02-12] MEDS: oxyCODONE/ACETAMINOPHEN 10 MG/325 MG TAB PO PRN ×6 (01:22→21:40)
[2018-02-12 04:00] VITALS: BP 121/66; PULSE 66; RESP 18; TEMP 98; O2SAT 96
[2018-02-12] MEDS: METHOCARBAMOL 500 MG TAB PO PRN (05:23)
[2018-02-12] MEDS: GABAPENTIN 400 MG CAP PO SCH ×3 (07:37→16:23)
[2018-02-12] MEDS: SODIUM CHLORIDE 0.9% FLUSH 10 ML FLUSH IV FLUSH SCH ×2 (07:37→21:41)
[2018-02-12] MEDS: ENOXAPARIN SODIUM 40 MG/0.4 ML SYRINGE SQ SCH (07:38)
[2018-02-12] MEDS: DOCUSATE SODIUM 50 MG/SENNA 8.6 MG TAB PO SCH ×2 (07:38→21:40)
[2018-02-12] MEDS: INSULIN ASPART SUPPLEMENTAL SCALE SQ SCH ×4 (07:40→21:41)
[2018-02-12 08:14] VITALS: BP 123/63; PULSE 66; RESP 18; TEMP 97.7; O2SAT 98
--- NOTE | 2018-02-12 11:07 | HHI.PR ---
Subjective Remarks Patient reports he is feeling okay today. Pain is controlled. Objective Vitals Vital Signs Date Time Temp Pulse Resp B/P (MAP) Pulse Ox O2 Delivery O2 Flow Rate FiO2 02/12/18 09:59 16 02/12/18 08:14 97.7 66 18 123/63 (83) 98 02/12/18 04:00 98.0 66 18 121/66 (84) 96 02/12/18 00:00 97.9 60 18 128/72 (90) 99 02/11/18 20:00 97.9 72 18 119/59 (79) 95 02/11/18 16:00 98.2 66 18 122/60 (80) 98 02/11/18 12:00 98.5 78 18 126/62 (83) 98 I/O 02/11/18 02/11/18 02/11/18 02/12/18 02/12/18 02/12/18 07:00 15:00 23:00 07:00 15:00 23:00 Output Total 1000 ml Balance -1000 ml Output Urine Total 1000 ml # Voids 2 Objective Remarks GENERAL: This is a well-nourished, well-developed patient, in no apparent distress. CARDIOVASCULAR: Normal rate and regular rhythm without murmurs, gallops, or rubs. RESPIRATORY: Good respiratory efforts. Breath sounds equal and clear to auscultation bilaterally. GASTROINTESTINAL: Abdomen soft, non-tender, non-distended. Normal active bowel sounds MUSCULOSKELETAL: Right lower extremity have multiple sites of graft. Left lower extremity is wrapped. Neurovascularly intact at the toes. NEURO: Alert & Oriented x4 to person, place, time, situation. Moves all ext x4 PSYCH: Appropriate mood and affect. A/P Problem List: (1) Fracture of tibia with fibula, left, closed ICD Code: S82.202A - Unspecified fracture of shaft of left tibia, initial encounter for closed fracture; S82.402A - Unspecified fracture of shaft of left fibula, initial encounter for closed fracture Assessment and Plan 62 years old man: S/p I and D left tibia/fibula, intramedullary nail left tibia, removal of external fixator left tibia, wound VAC assisted closure application on 2017 - Appreciate input from Orthopedic surgery - Wound care per protocol -[place] from right thigh and left knee were removed 01/27. DO NOT REMOVE MARIA G FROM GRAFT ON LOWER ANKLE -Dressings on medial right thigh was also removed 01/27 -maintain daily dressing changes to right thigh incision until 01/30, then leave open to air -Per Ortho Okay to leave medial thigh exposed to air. Should the small serous blisters start to open up, would recommend Xeroform and gauze over these -The patient is to follow-up in [place] with plastic surgery. - PT -NWB LLE Diabetes - Continue Low-dose sliding scale Peripheral neuropathy - Currently on Gabapentin DVT prophylaxis - Lovenox 40 mg daily Discharge Planning Awaiting for DME. Once everything is set up, he can be discharged home Problem Qualifiers (1) Fracture of tibia with fibula, left, closed: Qualified Codes: S82.202A - Unspecified fracture of shaft of left tibia, initial encounter for closed fracture; S82.402A - Unspecified fracture of shaft of left fibula, initial encounter for closed fracture Everardo Jackman MD Feb 12, 2018 11:07
[2018-02-12 12:15] VITALS: BP 109/55; PULSE 72; RESP 18; TEMP 97.8; O2SAT 96
[2018-02-12 15:57] VITALS: BP 109/62; PULSE 81; RESP 18; TEMP 97.8; O2SAT 97
[2018-02-12 20:00] VITALS: BP 128/61; PULSE 87; RESP 18; TEMP 98.3; O2SAT 95
[2018-02-13] VITALS: BP 148/65; PULSE 77; RESP 18; TEMP 98; O2SAT 95
[2018-02-13] MEDS: oxyCODONE/ACETAMINOPHEN 10 MG/325 MG TAB PO PRN ×6 (01:24→20:53)
[2018-02-13 05:00] VITALS: BP 126/73; PULSE 68; RESP 18; TEMP 97.8; O2SAT 97
[2018-02-13] MEDS: GABAPENTIN 400 MG CAP PO SCH ×3 (07:14→17:04)
[2018-02-13] MEDS: DOCUSATE SODIUM 50 MG/SENNA 8.6 MG TAB PO SCH ×2 (07:14→20:47)
[2018-02-13] MEDS: ENOXAPARIN SODIUM 40 MG/0.4 ML SYRINGE SQ SCH (07:14)
[2018-02-13] MEDS: SODIUM CHLORIDE 0.9% FLUSH 10 ML FLUSH IV FLUSH SCH ×2 (07:15→20:48)
[2018-02-13] MEDS: INSULIN ASPART SUPPLEMENTAL SCALE SQ SCH ×4 (07:15→20:54)
[2018-02-13 08:00] VITALS: BP 115/65; PULSE 70; RESP 18; TEMP 97.8; O2SAT 97
--- NOTE | 2018-02-13 11:07 | HHI.PR ---
Subjective Remarks Feeling better. Able to move left foot better. Objective Vitals Vital Signs Date Time Temp Pulse Resp B/P (MAP) Pulse Ox O2 Delivery O2 Flow Rate FiO2 02/13/18 09:54 16 02/13/18 08:00 97.8 70 18 115/65 (82) 97 02/13/18 05:00 97.8 68 18 126/73 (90) 97 02/13/18 00:00 98.0 77 18 148/65 (92) 95 02/12/18 20:00 98.3 87 18 128/61 (83) 95 02/12/18 15:57 97.8 81 18 109/62 (78) 97 02/12/18 12:15 97.8 72 18 109/55 (73) 96 I/O 02/12/18 02/12/18 02/12/18 02/13/18 02/13/18 02/13/18 07:00 15:00 23:00 07:00 15:00 23:00 Output Total 1000 ml 400 ml 950 ml Balance -1000 ml -400 ml -950 ml Output Urine Total 1000 ml 400 ml 950 ml # Bowel Movements 1 Objective Remarks GENERAL: This is a well-nourished, well-developed patient, in no apparent distress. CARDIOVASCULAR: Normal rate and regular rhythm without murmurs, gallops, or rubs. RESPIRATORY: Good respiratory efforts. Breath sounds equal and clear to auscultation bilaterally. GASTROINTESTINAL: Abdomen soft, non-tender, non-distended. Normal active bowel sounds MUSCULOSKELETAL: Right lower extremity have multiple sites of graft. Left lower extremity is wrapped. Neurovascularly intact at the foot/ toes. NEURO: Alert & Oriented x4 to person, place, time, situation. Moves all ext x4 PSYCH: Appropriate mood and affect. A/P Problem List: (1) Fracture of tibia with fibula, left, closed ICD Code: S82.202A - Unspecified fracture of shaft of left tibia, initial encounter for closed fracture; S82.402A - Unspecified fracture of shaft of left fibula, initial encounter for closed fracture Assessment and Plan 62 years old man: S/p I and D left tibia/fibula, intramedullary nail left tibia, removal of external fixator left tibia, wound VAC assisted closure application on 2017 - Appreciate input from Orthopedic surgery - Wound care per protocol -[place] from right thigh and left knee were removed 01/27. DO NOT REMOVE MARIA G FROM GRAFT ON LOWER ANKLE -Dressings on medial right thigh was also removed 01/27 -maintain daily dressing changes to right thigh incision until 01/30, then leave open to air -Per Ortho Okay to leave medial thigh exposed to air. Should the small serous blisters start to open up, would recommend Xeroform and gauze over these -The patient is to follow-up in [place] with plastic surgery. - PT -NWB LLE Diabetes - Continue Low-dose sliding scale Peripheral neuropathy - Currently on Gabapentin DVT prophylaxis - Lovenox 40 mg daily Discharge Planning Awaiting for DME. Once everything is set up, he can be discharged home to follow up outpatient. Problem Qualifiers (1) Fracture of tibia with fibula, left, closed: Qualified Codes: S82.202A - Unspecified fracture of shaft of left tibia, initial encounter for closed fracture; S82.402A - Unspecified fracture of shaft of left fibula, initial encounter for closed fracture Everardo Jackman MD Feb 13, 2018 11:07
[2018-02-13 12:00] VITALS: BP 120/62; PULSE 76; RESP 18; TEMP 97.3; O2SAT 98
[2018-02-13 16:00] VITALS: BP 111/57; PULSE 73; RESP 18; TEMP 97.5; O2SAT 100
[2018-02-13 20:00] VITALS: BP 123/68; PULSE 68; RESP 18; TEMP 97.7; O2SAT 98
[2018-02-13] MEDS: METHOCARBAMOL 500 MG TAB PO PRN (20:52)
[2018-02-14] VITALS: BP 117/62; PULSE 97; RESP 16; TEMP 97.6; O2SAT 98
[2018-02-14 04:00] VITALS: BP 128/70; PULSE 83; RESP 16; TEMP 97.2; O2SAT 98
[2018-02-14] MEDS: oxyCODONE/ACETAMINOPHEN 10 MG/325 MG TAB PO PRN ×4 (05:13→17:37)
[2018-02-14] MEDS: METHOCARBAMOL 500 MG TAB PO PRN ×2 (05:13→13:55)
[2018-02-14 08:00] VITALS: BP 116/65; PULSE 60; RESP 17; TEMP 98.4; O2SAT 94
[2018-02-14] MEDS: GABAPENTIN 400 MG CAP PO SCH ×3 (08:16→17:36)
[2018-02-14] MEDS: DOCUSATE SODIUM 50 MG/SENNA 8.6 MG TAB PO SCH ×2 (08:16→21:00)
[2018-02-14] MEDS: SODIUM CHLORIDE 0.9% FLUSH 10 ML FLUSH IV FLUSH SCH ×2 (08:16→21:00)
[2018-02-14] MEDS: ENOXAPARIN SODIUM 40 MG/0.4 ML SYRINGE SQ SCH (08:17)
[2018-02-14] MEDS: INSULIN ASPART SUPPLEMENTAL SCALE SQ SCH ×4 (08:17→21:00)
[2018-02-14] MEDS ORDERED: WALKER WHEELS/F1 MIS (11:10)
[2018-02-14 12:00] VITALS: BP 100/59; PULSE 64; RESP 16; TEMP 98.7; O2SAT 97
--- NOTE | 2018-02-14 14:01 | HHI.PR ---
Subjective Remarks Patient reports he is doing okay. Can use the walker for short distances but has significant pain when the foot is not elevated. Objective Vitals Vital Signs Date Time Temp Pulse Resp B/P (MAP) Pulse Ox O2 Delivery O2 Flow Rate FiO2 02/14/18 08:00 98.4 60 17 116/65 (82) 94 02/14/18 04:00 97.2 83 16 128/70 (89) 98 02/14/18 00:00 97.6 97 16 117/62 (80) 98 02/13/18 20:00 97.7 68 18 123/68 (86) 98 02/13/18 18:29 16 02/13/18 16:00 97.5 73 18 111/57 (75) 100 I/O 02/13/18 02/13/18 02/13/18 02/14/18 02/14/18 02/14/18 07:00 15:00 23:00 07:00 15:00 23:00 Output Total 950 ml 225 ml 300 ml Balance -950 ml -225 ml -300 ml Output Urine Total 950 ml 225 ml 300 ml Objective Remarks GENERAL: This is a well-nourished, well-developed patient, in no apparent distress. CARDIOVASCULAR: Normal rate and regular rhythm without murmurs, gallops, or rubs. RESPIRATORY: Good respiratory efforts. Breath sounds equal and clear to auscultation bilaterally. GASTROINTESTINAL: Abdomen soft, non-tender, non-distended. Normal active bowel sounds MUSCULOSKELETAL: Right lower extremity have multiple sites of graft. Left lower extremity is wrapped. Neurovascularly intact at the foot/ toes. NEURO: Alert & Oriented x4 to person, place, time, situation. Moves all ext x4 PSYCH: Appropriate mood and affect. A/P Problem List: (1) Fracture of tibia with fibula, left, closed ICD Code: S82.202A - Unspecified fracture of shaft of left tibia, initial encounter for closed fracture; S82.402A - Unspecified fracture of shaft of left fibula, initial encounter for closed fracture Assessment and Plan 62 years old man: S/p I and D left tibia/fibula, intramedullary nail left tibia, removal of external fixator left tibia, wound VAC assisted closure application on 2017 - Appreciate input from Orthopedic surgery - Wound care per protocol -[place] from right thigh and left knee were removed 01/27. DO NOT REMOVE MARIA G FROM GRAFT ON LOWER ANKLE -Dressings on medial right thigh was also removed 01/27 -maintain daily dressing changes to right thigh incision until 01/30, then leave open to air -Per Ortho Okay to leave medial thigh exposed to air. Should the small serous blisters start to open up, would recommend Xeroform and gauze over these -The patient is to follow-up in [place] with plastic surgery. - PT -NWB LLE Diabetes - Continue Low-dose sliding scale Peripheral neuropathy - Currently on Gabapentin DVT prophylaxis - Lovenox 40 mg daily Discharge Planning Awaiting for DME. Once everything is set up, he can be discharged home to follow up outpatient. Problem Qualifiers (1) Fracture of tibia with fibula, left, closed: Qualified Codes: S82.202A - Unspecified fracture of shaft of left tibia, initial encounter for closed fracture; S82.402A - Unspecified fracture of shaft of left fibula, initial encounter for closed fracture Everardo Jackman MD Feb 14, 2018 14:01
[2018-02-14 16:00] VITALS: BP 101/58; PULSE 68; RESP 19; TEMP 99.4; O2SAT 97
[2018-02-14 20:45] VITALS: BP 130/63; PULSE 74; RESP 17; TEMP 98.1; O2SAT 99
[2018-02-14] MEDS: oxyCODONE/ACETAMINOPHEN 5 MG/325 MG TAB PO PRN (22:18)
[2018-02-15 00:15] VITALS: BP 130/78; PULSE 74; RESP 18; TEMP 98.4; O2SAT 97
[2018-02-15] MEDS: oxyCODONE/ACETAMINOPHEN 5 MG/325 MG TAB PO PRN (04:00)
[2018-02-15 04:50] VITALS: BP 122/67; PULSE 67; RESP 21; TEMP 97.7; O2SAT 100
[2018-02-15 07:58] VITALS: BP 117/71; PULSE 65; RESP 18; TEMP 98.1; O2SAT 98
[2018-02-15] MEDS: ENOXAPARIN SODIUM 40 MG/0.4 ML SYRINGE SQ SCH (08:28)
[2018-02-15] MEDS: DOCUSATE SODIUM 50 MG/SENNA 8.6 MG TAB PO SCH ×2 (08:28→21:00)
[2018-02-15] MEDS: METHOCARBAMOL 500 MG TAB PO PRN ×2 (08:28→21:57)
[2018-02-15] MEDS: oxyCODONE/ACETAMINOPHEN 10 MG/325 MG TAB PO PRN ×4 (08:28→21:58)
[2018-02-15] MEDS: GABAPENTIN 400 MG CAP PO SCH ×3 (08:28→17:22)
[2018-02-15] MEDS: SODIUM CHLORIDE 0.9% FLUSH 10 ML FLUSH IV FLUSH SCH ×2 (08:28→21:00)
[2018-02-15] MEDS: INSULIN ASPART SUPPLEMENTAL SCALE SQ SCH ×4 (08:28→21:00)
[2018-02-15 11:55] VITALS: BP 117/59; PULSE 69; RESP 18; TEMP 98.5; O2SAT 97
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
[2018-02-15 16:00] VITALS: BP 109/56; PULSE 71; RESP 18; TEMP 98.3; O2SAT 96
[2018-02-15 20:40] VITALS: BP 117/59; PULSE 76; RESP 17; TEMP 98.5; O2SAT 100
[2018-02-16] VITALS: BP 120/60; PULSE 68; RESP 18; TEMP 98; O2SAT 99
[2018-02-16] MEDS: oxyCODONE/ACETAMINOPHEN 10 MG/325 MG TAB PO PRN ×3 (03:50→12:53)
[2018-02-16 04:40] VITALS: BP 134/63; PULSE 66; RESP 17; TEMP 97.7; O2SAT 94
[2018-02-16 07:37] VITALS: BP 130/72; PULSE 62; RESP 20; TEMP 97.9; O2SAT 99
[2018-02-16] MEDS: INSULIN ASPART SUPPLEMENTAL SCALE SQ SCH (08:00)
[2018-02-16] MEDS: SODIUM CHLORIDE 0.9% FLUSH 10 ML FLUSH IV FLUSH SCH (09:00)
[2018-02-16] MEDS: GABAPENTIN 400 MG CAP PO SCH ×2 (09:02→12:54)
[2018-02-16] MEDS: ENOXAPARIN SODIUM 40 MG/0.4 ML SYRINGE SQ SCH (09:02)
[2018-02-16] MEDS: DOCUSATE SODIUM 50 MG/SENNA 8.6 MG TAB PO SCH (09:02)
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
[2018-02-16 11:48] VITALS: BP 112/59; PULSE 72; RESP 20; TEMP 98.4; O2SAT 95
== END 2018-02-16 15:03 | disposition home or self-care (01) | DRG 563 ==
LOC: N05A 22:30
PROVIDERS: ADMIT Family Medicine; ATTEND Family Medicine
DX: S82.302B Unspecified fracture of lower end of left tibia, initial encounter for open fracture type I or II (principal); I96 Gangrene, not elsewhere classified; E11.42 Type 2 diabetes mellitus with diabetic polyneuropathy; D62 Acute posthemorrhagic anemia; S82.402A Unspecified fracture of shaft of left fibula, initial encounter for closed fracture; I10 Essential (primary) hypertension; S70.321A Blister (nonthermal), right thigh, initial encounter; L76.82 Other postprocedural complications of skin and subcutaneous tissue; F17.210 Nicotine dependence, cigarettes, uncomplicated; V23.4XXA Motorcycle driver injured in collision with car, pick-up truck or van in traffic accident, initial encounter; Y92.410 Unspecified street and highway as the place of occurrence of the external cause; Z85.72 Personal history of non-Hodgkin lymphomas
CPT/HCPCS: 80048; 82948; 85025; E0113; J1650; J1815